=== PATIENT | male | born 1935 | race Caucasian/White ===

== ENCOUNTER → 2017-08-19 | Outpatient (CLI) | payer MEDICARE, OTHER ==
[~2017-08-19] MED LIST: ASPIRIN81 MG PO; ATORVASTATIN CA20 MG PO; BENICAR HCT 401 EACH PO; PENCILLIN V PO250 MG PO; VITAMIN C1000 M1 PO
--- NOTE | 2017-08-19 10:01 | Diagnostic Imaging Report ---
PROCEDURE:ABDOMEN-1VIEW (KUB) TECHNIQUE:Supine AP abdomen totaling 2 radiographs INDICATION:Kidney stones COMPARISON:[facility], DX, ABDOMEN-1VIEW (KUB), 02/11/2017, 9:23. [facility], DX, ABDOMEN-1VIEW (KUB), 05/12/2017, 10:56. FINDINGS: See conclusion. CONCLUSION: 1. Stable left upper pole 4 mm stone. No evidence of new stones. 2. Normal bowel gas pattern. 3. Intact skeleton. Multiple pelvic surgical clips suggesting lymph node dissection. Dictated by: Sebastian Radford M.D. on 08/19/2017 at 10:01 Electronically approved by: Sebastian Radford M.D. on 08/19/2017 at 10:01
== END ==
LOC: RAD 09:29
PROVIDERS: ATTEND Urology
DX: N20.0 Calculus of kidney (principal)
CPT/HCPCS: 74018

== ENCOUNTER → 2017-11-24 | Outpatient (CLI) | payer MEDICARE, OTHER ==
--- NOTE | 2017-11-24 19:12 | Diagnostic Imaging Report ---
PROCEDURE:X-RAY ABDOMEN - KUB COMPARISON:[facility], DX, ABDOMEN-1VIEW (KUB), 08/19/2017, 9:39. INDICATIONS:RENAL STONES, CHRONIC FINDINGS: Nonobstructive bowel gas pattern. Punctate radiopaque density projecting in the mid to inferior left renal shadow. Stable 4 mm radiopaque density projecting in the superior aspect of the left renal shadow No calcifications project over the right renal shadow or expected course of ureters. Multiple metallic clips are again seen in the pelvis. No acute bony abnormalities. No lytic or blastic lesions. Stable punctate radiopaque density projecting over the 11th rib outside the renal shadow and may represent vascular calcification.. CONCLUSION: Stable 4 mm radio obstructing calculus density projecting in the superior aspect of the left renal shadow. Punctate radiopaque density projecting in the mid to inferior left renal shadow likely represents a nonobstructing calculus. Lux Macedo M.D. Dictated by: Lux Macedo M.D. on 11/24/2017 at 19:14 Electronically approved by: Lux Macedo M.D. on 11/24/2017 at 19:14
== END ==
LOC: RAD 10:30
PROVIDERS: ATTEND Urology
DX: N20.0 Calculus of kidney (principal)
CPT/HCPCS: 74018

== ENCOUNTER → 2017-12-28 | Outpatient (CLI) | payer MEDICARE, OTHER ==
[~2017-12-28] MED LIST changes: +DIATRIZOATE MEGL/DIATRIZOA SOD 30 ML BTL PO ONE
[2017-12-28 15:59] LABS: BASOPHILS % 0.2 % (0.0-1.0); EOSINOPHILS # (AUTO) 0.3 (0.0-0.4); EOSINOPHILS % 2.2 % (0.0-6.0); HEMATOCRIT 41.7 % (38.2-49.6); HEMOGLOBIN 14.1 g/dL (14.0-18.0); LYMPHOCYTES # (AUTO) 1.7 (1.0-3.2); LYMPHOCYTES % 12.5 % (18.0-39.1); MEAN CORPUSCULAR HEMOGLOBIN 29.6 pg (28-32); MEAN CORPUSCULAR HGB CONC 33.8 g/dL (31-35); MEAN CORPUSCULAR VOLUME 87.6 fL (81-99); MONOCYTES # (AUTO) 1.5 (0.2-0.8); MONOCYTES % 11.2 % (4.4-11.3); NEUTROPHILS # (AUTO) 10.1 (2.1-6.9); NEUTROPHILS % 73.5 % (38.7-80.0); PLATELET COUNT 240 x10e3/uL (140-360); RED BLOOD COUNT 4.76 x10e6/uL (4.3-5.7); RED CELL DISTRIBUTION WIDTH 12.2 % (11.7-14.4)
[2017-12-28 16:17] LABS: ALBUMIN 3.8 g/dL (3.5-5.0); ALBUMIN/GLOBULIN RATIO 1.2 (0.8-2.0); ANION GAP 15.1 mmol/L (8-16); CALCIUM 9.5 mg/dL (8.4-10.2); CREATININE, SERUM 1.48 mg/dL (0.72-1.25); POTASSIUM 4.1 mmol/L (3.5-5.1)
--- NOTE | 2017-12-28 17:33 | Diagnostic Imaging Report ---
PROCEDURE: CT ABDOMEN AND PELVIS WITHOUT CONTRAST TECHNIQUE: The abdomen and pelvis were scanned utilizing a multidetector helical scanner from the diaphragm to the lesser trochanter after the oral administration of Gastroview. No IV contrast was administered. Coronal and sagittal multiplanar reformations were obtained. DLP: 592.42 mGy-cm COMPARISON: Abdominal CT 09/19/1999 INDICATIONS: INTESTINAL ADHESION FINDINGS: ABSENCE OF INTRAVENOUS CONTRAST DECREASES SENSITIVITY FOR DETECTION OF FOCAL LESIONS AND VASCULAR PATHOLOGY. LOWER THORAX: Right middle and lower lobe atelectasis or scarring. HEPATOBILIARY: No focal hepatic lesions. No biliary ductal dilatation. SPLEEN: No splenomegaly. PANCREAS: No focal masses or ductal dilatation. ADRENALS: No adrenal nodules. KIDNEYS/URETERS: No hydronephrosis or solid mass lesions. Fluid attenuating 1.2 cm lesion in the superior pole of the right kidney, likely a cyst. Nonobstructing left renal 0.5 cm calculus in the midpole. PELVIC ORGANS/BLADDER: Prostatectomy. No focal bladder wall thickening. PERITONEUM / RETROPERITONEUM: No free air. Small amount of free fluid in the pelvis. LYMPH NODES: No lymphadenopathy. Prior pelvic lymph node dissection. VESSELS: Mild scattered atherosclerotic calcifications. GI TRACT: No distention or wall thickening. Small hiatal hernia. Colonic diverticula without evidence of diverticulitis. Partial right hemicolectomy with ileocolonic anastomosis. Multiple small bowel loops are distended with contrast with gradual tapering towards the ileum. Multiple ventral hernias with one wide mouth hernia containing a portion of the anterior small bowel wall. BONES AND SOFT TISSUES: Midline laparotomy scar. Multiple ventral hernias, mostly fat containing with one Kaufman's hernia without evidence of strangulation or obstruction. Degenerative change of the spine. IMPRESSION: 1. No evidence of small bowel obstruction. 2. Left nephrolithiasis. 3. Colonic diverticulosis. 4. Status post partial right hemicolectomy, prostatectomy, and pelvic leslie dissection. 5. Multiple ventral hernias, mostly fat containing. Right ventral Kaufman's hernia without strangulation or obstruction. 6. Nonspecific small amount of free fluid in the pelvis. 1. Dictated by: Zac Manzanares M.D. on 12/28/2017 at 17:37 Electronically approved by: Zac Manzanares M.D. on 12/28/2017 at 17:37
== END ==
LOC: CT 15:39
PROVIDERS: ATTEND Internal Medicine
DX: K56.51 Intestinal adhesions [bands], with partial obstruction (principal)
CPT/HCPCS: 36415; 74176; 80053; 85025

== ENCOUNTER → 2018-02-20 | Outpatient (CLI) | payer MEDICARE, OTHER ==
[~2018-02-20] MED LIST changes: -DIATRIZOATE MEGL/DIATRIZOA SOD 30 ML BTL PO ONE
--- NOTE | 2018-02-20 20:57 | Diagnostic Imaging Report ---
PROCEDURE:X-RAY ABDOMEN - KUB COMPARISON:[facility], DX, ABDOMEN-1VIEW (KUB), 11/24/2017, 10:42. INDICATIONS:KIDNEY STONE FINDINGS: Nonobstructive bowel gas pattern with moderate amount of retained stool. Stable 4 mm radiopaque density projecting in the superior aspect of the left renal shadow. Previously described punctate radiopaque density projecting over the mid to inferior aspect of the left renal shadow is not seen in current exam. No other calcifications project over the right renal shadow or expected course of ureters or bladder. No acute bony abnormalities. Multiple metallic clips project in the pelvis. CONCLUSION: Stable 4 mm non-obstructing calculus in the left kidney. Previously described punctate radiopaque density projecting in the mid to inferior left kidney is not seen in current exam. Lux Macedo M.D. Dictated by: Lux Macedo M.D. on 02/20/2018 at 21:03 Electronically approved by: Lux Macedo M.D. on 02/20/2018 at 21:03
== END ==
LOC: RAD 15:54
PROVIDERS: ATTEND Urology
DX: N20.0 Calculus of kidney (principal)
CPT/HCPCS: 74018

== ENCOUNTER → 2018-05-18 | Outpatient (CLI) | payer MEDICARE, OTHER ==
--- NOTE | 2018-05-18 10:44 | Diagnostic Imaging Report ---
PROCEDURE:X-RAY ABDOMEN - KUB COMPARISON:02/20/2018. INDICATIONS:CALCULUS OF KIDNEY FINDINGS: 3-4 mm calculus projects over the upper pole of the left renal shadow as previously seen. No additional suspicious calcifications project over the renal shadows or expected ureteral courses. Bowel gas pattern is nonobstructive with gas and fecal material throughout the large bowel. Multiple pelvic surgical clips likely related to lymph node dissection, unchanged. Regional skeletal structures are intact with mild degenerative disc changes of the lumbar spine. No mass effect or organomegaly. CONCLUSION: Stable 3-4 mm left upper pole renal calculus. Dictated by: Sean Ngo M.D. on 05/18/2018 at 10:53 Electronically approved by: Sean Ngo M.D. on 05/18/2018 at 10:53
== END ==
LOC: RAD 09:56
PROVIDERS: ATTEND Urology
DX: N20.0 Calculus of kidney (principal)
CPT/HCPCS: 74018

== ENCOUNTER → 2018-07-21 | Outpatient (CLI) | payer MEDICARE, OTHER ==
--- NOTE | 2018-07-21 10:55 | Diagnostic Imaging Report ---
EXAMINATION: CHEST 2 VIEWS INDICATION: ^[id number] ^[id number] ^ACUTE BRONCHITIS COMPARISON: None FINDINGS: PA and lateral views TUBES and LINES: None. LUNGS: Lungs are well inflated. There is no evidence of pneumonia or pulmonary edema. Right upper lung field nodular density. PLEURA: No pleural effusion or pneumothorax. HEART AND MEDIASTINUM: The cardiomediastinal silhouette is unremarkable. BONES AND SOFT TISSUES: No acute osseous lesion. Soft tissues are unremarkable. UPPER ABDOMEN: No free air under the diaphragm. IMPRESSION: No acute thoracic abnormality. Right upper lung field nodular density can be further evaluated with nonurgent chest CT. Signed by: Dr. Akash Smith MD on 07/21/2018 10:51 AM
== END ==
LOC: RAD 09:32
PROVIDERS: ATTEND Internal Medicine
DX: J20.9 Acute bronchitis, unspecified (principal)
CPT/HCPCS: 71046

== ENCOUNTER → 2018-07-28 | Outpatient (CLI) | payer MEDICARE, OTHER ==
--- NOTE | 2018-07-28 12:33 | Diagnostic Imaging Report ---
EXAM: CT Chest WITHOUT contrast 07/28/2018 11:37 AM INDICATION: ^[id number] ^[id number] ^ABNORMAL CHEST XRAY COMPARISON: Chest radiograph 07/21/2018 TECHNIQUE: Chest was scanned utilizing a multidetector helical scanner from the lung apex through the level of the adrenal glands without administration of IV contrast. Absence of intravenous contrast decreases sensitivity for detection of lymphadenopathy and vascular pathology. Coronal and sagittal reformations were obtained. Routine protocol was performed. IV CONTRAST: None COMPLICATIONS: None RADIATION DOSE: Total DLP: 476.8 mGy*cm Estimated effective dose: (DLP x 0.015 x size factor) mSv CTDIvol has been reviewed. It is below the limits set by the Radiation Protocol Committee (RPC). FINDINGS: LINES/ TUBES: None. LUNGS AND AIRWAYS: Minimal scarring in both upper lobes. Indeterminate 4 mm triangular-shaped nodule in the right upper lobe on series 3, image 23 may represent an intrapulmonary lymph node. Calcified granuloma in the right upper lobe at the level of the aortic arch likely correspond to the abnormality seen on chest radiograph. Additional pleural-based calcified granuloma in the posterior left lower lobe on image 44. Noncalcified pleural-based adjacent nodule measuring 3 mm in the left lower lobe. Mild bilateral lower lobes and right middle lobe bronchiectasis with peribronchial wall thickening and surrounding areas of subsegmental atelectasis and linear scarring. PLEURA: The pleural spaces are clear. Few scattered small calcified pleural plaques, for example in the anterior right upper lobe on series 3, image 26, left upper lobe on image 37. HEART AND MEDIASTINUM: The thyroid gland is normal. Few a small right hilar calcified lymph nodes. The heart is normal in size. There is no pericardial effusion. Diffuse coronary artery calcifications. The thoracic aorta and pulmonary arteries are unremarkable. UPPER ABDOMEN: Unremarkable. BONES: Mild multilevel degenerative changes of the thoracic spine. SOFT TISSUES: Unremarkable. IMPRESSION: Few scattered bilateral calcified granulomas, with the largest in the right upper lobe corresponds to the abnormality seen on chest radiograph. Few bilateral small calcified pleural plaques. Bilateral lower lobe bronchiectasis with areas of subsegmental atelectasis. Overall findings are suggestive of sequela of prior rheumatoid disease with an without superimposed asbestos exposure. Signed by: Dr. Violet Frey M.D. on 07/28/2018 12:30 PM
== END ==
LOC: CT 11:31
PROVIDERS: ATTEND Internal Medicine
DX: R93.89 Abnormal findings on diagnostic imaging of other specified body structures (principal)
CPT/HCPCS: 71250

== ENCOUNTER → 2018-08-18 | Outpatient (CLI) | payer MEDICARE, OTHER ==
--- NOTE | 2018-08-18 11:39 | Diagnostic Imaging Report ---
EXAMINATION: ABDOMEN-1VIEW (KUB) INDICATION: Renal calculus. COMPARISON: CT Abdomen/Pelvis 09/18/16 and KUB 05/18/2018. FINDINGS: Unchanged appearance of 4 mm calcification overlying the left upper pole kidney. No evidence of additional calcifications overlying the kidneys or expected course of the ureters. Postsurgical changes with clips overlying the bilateral pelvis. Nonobstructive bowel gas pattern. No acute osseous abnormality. IMPRESSION: Similar appearance of 4 mm left upper pole renal calculus. Signed by: Dr. Monica Carlson MD on 08/18/2018 11:35 AM
== END ==
LOC: RAD 10:35
PROVIDERS: ATTEND Urology
DX: N20.0 Calculus of kidney (principal)
CPT/HCPCS: 74018

== ENCOUNTER → 2018-08-24 | Outpatient (CLI) | payer MEDICARE, OTHER | LOC: RESP 09:30 | PROVIDERS: ATTEND Internal Medicine | DX: J92.0 Pleural plaque with presence of asbestos (principal) | CPT/HCPCS: 94060; 94727; 94729 ==

== ENCOUNTER 2018-12-06 23:34 | Inpatient (IN) | payer MEDICARE, OTHER ==
[~2018-12-06] VITALS: Ht 190.5 cm; Wt 83.5 kg
--- OUTSIDE RECORDS SUMMARY | 2018-12-06 23:39 | XMS REPORT ---
Author Author [facility] Address Unknown Phone Unavailable Care Team Providers Care Critical Care Nurse Name Role Phone HERMILO ALLEN Unavailable Unavailable KATIE KUHN Unavailable Unavailable Problems This patient has no known problems. Allergies, Adverse Reactions, Alerts This patient has no known allergies or adverse reactions. Medications This patient has no known medications. Results Test Description Test Time Test Comments Text Results Atomic Results Result Comments ABDOMEN-1VIEW (KUB) 2018-08-18 11:32:00 [place] [address] Patient Name: JILLIAN CARBALLO MR #: [id number] : 1935 Age/Sex: 83/M Req #: [id number] Adm Physician: Ordered by: HERMILO ALLEN MD Report #: [id number] Location: [facility] Room/Bed: Procedure: [id number] DX/ABDOMEN-1VIEW (KUB) Exam Date: 08/18/18 Exam Time: 1045 REPORT STATUS: Signed EXAMINATION: ABDOMEN-1VIEW (KUB) INDICATION: Renal calculus. COMPARISON: CT Abdomen/Pelvis 09/18/16 and KUB 05/18/2018. FINDINGS: Unchanged appearance of 4 mm calcification overlying the left upper pole kidney. No evidence of additional calcifications overlying the kidneys or expected course of the ureters. Postsurgical changes with clips overlying the bilateral pelvis. Nonobstructive bowel gas pattern. No acute osseous abnormality. IMPRESSION: Similar appearance of 4 mm left upper pole renal calculus. Signed by: Dr. Chay Tellez MD on 08/18/2018 11:35 AM Dictated By: CHAY TELLEZ MD 34 Transcribed By: SONDRA on 08/18/18 1135 COPY TO: HERMILO ALLEN MD CT CHEST WO 2018-07-28 12:17:00 [place] [address] Patient Name: JILLIAN CARBALLO MR #: [id number] : 1935 Age/Sex: 83/M Req #: [id number] Adm Physician: Ordered by: KATIE MUSA MD Report #: [id number] Location: CT Room/Bed: Procedure: [id number] CT/CT CHEST WO Exam Date: 07/28/18 Exam Time: 1156 REPORT STATUS: Signed EXAM: CT Chest WITHOUT contrast 07/28/2018 11:37 AM INDICATIO N: [id number] ABNORMAL CHEST XRAY COMPARISON: Chest radiograph 07/21/2018 TECHNIQUE: Chest was scanned utilizing a multidetector helical scanner from the lung apex through the level of the adrenal glands without administration of IV contrast. Absence of intravenous contrast decreases sensitivity for detection of lymphadenopathy and vascular pathology. Coronal and sagittal reformations were obtained. Routine protocol was performed. IV CONTRAST: None COMPLICATIONS: None RADIATION DOSE: Total DLP: 476.8 mGy*cm Estimated effective dose: (DLP x 0.015 x size factor) mSv CTDIvol has been reviewed. It is below the limits set by the Radiation Protocol Committee (RPC). FINDINGS: LINES/ TUBES: None. LUNGS AND AIRWAYS: Minimal scarring in both upper lobes. Indeterminate 4 mm triangular-shaped nodule in the right upper lobe on series 3, image 23 may represent an intrapulmonary lymph node. Calcified granuloma in the right upper lobe at the level of the aortic arch likely correspond to the abnormality seen on chest radiograph. Additional pleural- based calcified granuloma in the posterior left lower lobe on image 44. Noncalcified pleural-based adjacent nodule measuring 3 mm in the left lower lobe. Mild bilateral lower lobes and right middle lobe bronchiectasis with peribronchial wall thickening and surrounding areas of subsegmental atelectasis and linear scarring. PLEURA: The pleural spaces are clear. Few scattered small calcified pleural plaques, for example in the anterior right upper lobe on series 3, image 26, left upper lobe on image 37. HEART AND MEDIASTINUM: The thyroid gland is normal. Few a small right hilar calcified lymph nodes. The heart is normal in size. There is no pericardial effusion. Diffuse coronary artery calcifications. The thoracic aorta and pulmonary arteries are unremarkable. UPPER ABDOMEN: Unremarkable. BONES: Mild multilevel degenerative changes of the thoracic spine. SOFT TISSUES: Unremarkable. IMPRESSION: Few scattered bilateral calcified granulomas, with the largest in the right upper lobe corresponds to the abnormality seen on chest radiograph. Few bilateral small calcified pleural plaques. Bilateral lower lobe bronchiectasis with areas of subsegmental atelectasis. Overall findings are suggestive of sequela of prior rheumatoid disease with an without superimposed asbestos exposure. Signed by: Dr. Violet Frey M.D. on 07/28/2018 12:30 PM Dictated By: VIOLET FREY MD 1230 Transcribed By: SONDRA on 07/28/18 1230 COPY TO: KATIE MUSA MD CHEST 2 VIEWS 2018-07-21 10:51:00 [place] [address] Patient Name: JILLIAN CARBALLO MR #: [id number] : 1935 Age/Sex: 83/M Req #: [id number] Adm Physician: Ordered by: KATIE KUHN MD Report #: [id number] Location: RAD Room/Bed: Procedure: [id number] DX/CHEST 2 VIEWS Exam Date: 07/21/18 Exam Time: 944 REPORT STATUS: Signed EXAMINATION: CHEST 2 VIEWS INDICATION: [id number] ACUTE BRONCHITIS COMPARISON: None FINDINGS: PA and lateral views TUBES and LINES: None. LUNGS: Lungs are well inflated. There is no evidence of pneumonia or pulmonary edema. Right upper lung field nodular density. PLEURA: No pleural effusion or pneumothorax. HEART AND MEDIASTINUM: The cardiomediastinal silhouette is unremarkable. BONES AND SOFT TISSUES: No acute osseous lesion. Soft tissues are unremarkable. UPPER ABDOMEN: No free air under the diaphragm. IMPRESSION: No acute thoracic abnormality. Right upper lung field nodular density can be further evaluated with nonurgent chest CT. Signed by: Dr. Akash Vidal MD on 07/21/2018 10:51 AM Dictated By: AKASH VIDAL MD 1051 Transcribed By: SONDRA on 07/21/18 1051 COPY TO: KATIE KUHN MD [facility] (KUB[facility] 2018-05-18 10:53:00 [place] [address] Patient Name: JILLIAN CARBALLO MR #: [id number] : 1935 Age/Sex: 82/M Req #: [id number] Adm Physician: Ordered by: HERMILO ALLEN MD Report #: [id number] Location: RAD Room/Bed: Procedure: [id number] DX/ABDOMEN-1VIEW (KUB) Exam Date: 05/18/18 Exam Time: 1014 REPORT STATUS: Signed PROCEDURE: X-RAY ABDOMEN - KUB COMPARISON: . INDICATIONS: CALCULUS OF KIDNEY FINDINGS: 3-4 mm calculus projects over the upper pole of the left renal shadow as previously seen. No additional suspicious calcifications project over the renal shadows or expected ureteral courses. Bowel gas pattern is nonobstructive with gas and fecal material throughout the large bowel. Multiple pelvic surgical clips likely related to lymph node dissection, unchanged. Regional skeletal structures are intact with mild degenerative disc changes of the lumbar spine. No mass effect or organomegaly. CONCLUSION: Stable 3-4 mm left upper pole renal calculus. Dictated by: Wai Ngo M.D. on 05/18/2018 at 10:53 Electronically approved by: Wai Ngo M.D. on 05/18/2018 at 10:53 Dictated By: WAI NGO MD 1053 Transcribed By: ANNE-MARIE on 05/18/18 1053 COPY TO: HERMILO ALLEN MD ABDOMEN-1VIEW (KUB) 2018-02-20 21:03:00 [place] [address] Patient Name: JILLIAN CARBALLO MR #: [id number] : 1935 Age/Sex: 82/M Req #: [id number] Adm Physician: Ordered by: HERMILO ALLEN MD Report #: [id number] Location: [facility] Room/Bed: Procedure: [id number] DX/ABDOMEN-1VIEW (KUB) Exam Date: 02/20/18 Exam Time: 1604 REPORT STATUS: Signed PROCEDURE: X-RAY ABDOMEN - KUB COMPARISON: [facility], DX, ABDOMEN-1VIEW (KUB), 11/24/2017, 10:42. INDICATIONS: KIDNEY STONE FINDINGS: Nonobstructive bowel gas pattern with moderate amount of r etained stool. Stable 4 mm radiopaque density projecting in the superior aspect of the left renal shadow. Previously described punctate radiopaque density projecting over the mid to inferior aspect of the left renal shadow is not seen in current exam. No other calcifications project over the right renal shadow or expected course of ureters or bladder. No acute bony abnormalities. Multiple metallic clips project in the pelvis. CONCLUSION: Stable 4 mm non-obstructing calculus in the left kidney. Previously described punctate radiopaque density projecting in the mid to inferior left kidney is not seen in current exam. Lux Truong M.D. Dictated by: Lux Truong M.D. on 02/20/2018 at 21:03 Electronically approved by: Lux Truong M.D. on 02/20/2018 at 21:03 Dictated By: LXU TRUONG MD 02 Transcribed By: ANNE-MARIE on 02/20/182102 COPY TO: HERMILO ALLEN MD CT ABDOMEN/PELVIS WO 2017-12-28 17:37:00 [place] [address] Patient Name: JILLIAN CARBALLO MR #: [id number] : 1935 Age/Sex: 82/M Req #: [id number] Adm Physician: Ordered by: KATIE KUHN MD Report #: [id number] Location: CT Room/Bed: Procedure: [id number] CT/CT ABDOMEN/PELVIS WO Exam Date: 12/28/17 Exam Time: 1652 REPORT STATUS: Signed PROCEDURE: CT ABDOMEN AND PELVIS WITHOUT CONTRAST TECHNIQUE: The abdomen and pelvis were scanned utilizing a multidetector helical scanner from the diaphragm to the lesser trochanter after the oral administration of Gastroview. No IV contrast was administered. Coronal and sagittal multiplanar reformations were obtained. DLP: 592.42 mGy-cm COMPARISON: Abdominal CT 09/19/1999 INDICATIONS: INTESTINAL ADHESION FINDINGS: ABSENCE OF INTRAVENOUS CONTRAST DECREASES SENSITIVITY FOR DETECTION OF FOCAL LESIONS AND VASCULAR PATHOLOGY. LOWER THORAX: Right middle and lower lobe atelectasis or scarring. HEPATOBILIARY: No focal hepatic lesions. No biliary ductal dilatation. SPLEEN: No splenomegaly. PANCREAS: No focal masses or ductal dilatation. ADRENALS: No adrenal nodules. KI DNEYS/URETERS: No hydronephrosis or solid mass lesions. Fluid attenuating 1.2 cm lesion in the superior pole of the right kidney, likely a cyst. Nonobstructing left renal 0.5 cm calculus in the midpole. PELVIC ORGANS/BLADDER: Prostatectomy. No focal bladder wall thickening. PERITONEUM / RETROPERITONEUM: No free air. Small amount of free fluid in the pelvis. LYMPH NODES: No lymphadenopathy. Prior pelvic lymph node dissection. VESSELS: Mild scattered atherosclerotic calcifications. GI TRACT: No distention or wall thickening. Small hiatal hernia. Colonic diverticula wi thout evidence of diverticulitis. Partial right hemicolectomy with ileocolonic anastomosis. Multiple small bowel loops are distended with contrast with gradual tapering towards the ileum. Multiple ventral hernias with one wide mouth hernia containing a portion of the anterior small bowel wall. BONES AND SOFT TISSUES: Midline laparotomy scar. Multiple ventral hernias, mostly fat containing with one Kaufman's hernia without evidence of strangulation or obstruction. Degenerative change of the spine. IMPRESSION: 1. No evidence of small bowel obstruction. 2. Left nephrolithiasis. 3. Colonic diverticulosis. 4. Status post partial right hemicolectomy, prostatectomy, and pelvic leslie dissection. 5. Multiple ventral hernias, mostly fat containing. Right ventral Kaufman's hernia without strangulation or obstruction. 6. Nonspecific small amount of free fluid in the pelvis. 1. Dictated by: Zac Shore M.D. on 12/28/2017 at 17:37 Electronically approved by: Zac Shore M.D. on 12/28/2017 at 17:37 Dictated By: ZAC SHORE MD 36 Transcribed By: ANNE-MARIE on 12/28/171736 COPY TO: KATIE KUHN MD ABDOMEN-1VIEW (KUB) [place] [address] Patient Name: JILLIAN CARBALLO MR #: [id number] : 1935 Age/Sex: 82/M Req #: [id number] Adm Physician: Ordered by: HERMILO ALLEN MD Report #: [id number] Location: [facility] Room/Bed: Procedure: [id number] DX/ABDOMEN-1VIEW (KUB) Exam Date: 11/24/17 Exam Time: 1042 REPORT STATUS: Signed PROCEDURE: X-RAY ABDOMEN - KUB COMPARISON: [facility], DX, ABDOMEN-1VIEW (KUB), 08/19/2017, 9:39. INDICATIONS: RENAL STONES, CHRONIC FINDINGS: Nonobstructive bowel gas pattern. Punctate radiop aque density projecting in the mid to inferior left renal shadow. Stable 4 mm radiopaque density projecting in the superior aspect of the left renal shadow No calcifications project over the right renal shadow or expected course of ureters. Multiple metallic clips are again seen in the pelvis. No acute bony abnormalities. No lytic or blastic lesions. Stable punctate radiopaque density projecting over the 11th rib outside the renal shadow and may represent vascular calcification.. CONCLUSION: Stable 4 mm radio obstructing calculus density projecting in the superior aspect of the left renal shadow. Punctate radiopaque density projecting in the mid to inferior left renal shadow likely represents a nonobstructing calculus. Lux Truong M.D. Dictated by: Lux Truong M.D. on 11/24/2017 at 19:14 Electronically approved by: Lux Truong M.D. on 11/24/2017 at 19:14 Dictated By: LUX TRUONG MD 13 Transcribed By: ANNE-MARIE on 11/24/171913 COPY TO: HERMILO ALLEN MD ABDOMEN-1VIEW (KUB) [place] [address] Patient Name: JILLIAN CARBALLO MR #: [id number] : 1935 Age/Sex: 82/M Req #: [id number] Adm Physician: Ordered by: HERMILO ALLEN MD Report #: [id number] Location: [facility] Room/Bed: Procedure: [id number] DX/ABDOMEN-1VIEW (KUB) Exam Date: 08/19/17 Exam Time: 929 REPORT STATUS: Signed PROCEDURE: ABDOMEN-1VIEW (KUB) TECHNIQUE: Supine AP abdomen totaling 2 radiographs INDICATION: Kidney stones COMPARISON: [facility], DX, ABDOMEN-1VIEW (KUB), 02/11/2017, 9:23. [facility], DX, ABDOMEN-1VIEW (KUB), 05/12/2017, 10:56. FINDINGS: See conclusion. CONCLUSION: 1. Stable left upper pole 4 mm stone. No evidence of new stones. 2. Normal bowel gas pattern. 3. Intact skeleton. Multiple pelvic surgical clips suggesting lymph node dissection. Dictated by: Mi Radford M.D. on 08/19/2017 at 10:01 Electronically approved by: Mi Radford M.D. on 08/19/2017 at 10:01 Dictated By: MI RADFORD MD 1001 Transcribed By: ANNE-MARIE on 08/19/17 1001 COPY TO: HERMILO ALLEN MD ABDOMEN-1VIEW (KUB) [place] [address] Patient Name: JILLIAN CARBALLO MR #: [id number] : 1935 Age/Sex: 81/M Req #: [id number] Adm Physician: Ordered by: HERMILO ALLEN MD Report #: [id number] Location: [facility] Room/Bed: Procedure: [id number] DX/ABDOMEN-1VIEW (KUB) Exam Date: 05/12/17 Exam Time: 1058 REPORT STATUS: Signed PROCEDURE: X-RAY ABDOMEN - KUB COMPARISON: Abdomen x-ray 02/11/17; CT abdomen/pelvis 09/18/16 INDICATIONS: HISTORY OF KIDNEY CALCULUS FINDINGS: BOWEL GAS PATTERN: Non-specific bowel gas pattern. No dilated bowel loops. [id number] amount of stool in the large bowel. CALCIFICATIONS: Stool and air obscure the right renal shadow. A suspected calculus over the left renal shadow on previous exam is poorly visualized on this study. Two potential calculi at the upper pole of the left kidney may correspond to splenic artery calcifications identified on CT. The larger measures 5 mm. The smaller measures 4 mm. No calcifications over the renal shadows or along the expected course of the ureters. OTHER: Multiple surgical clips in the pelvis are re-demonstrated. No organomegaly. BONES: Unremarkable for age. CONCLUSION: 1. No conclusive evidence of intrarenal calculi. No evidence of ureteral calculi. 2. CT is a more sensitive modality to identify intrarenal calculi. Dictated by: Jammie Koroma M.D. on 05/12/2017 at 11:35 Electronically approved by: Jammie Koroma M.D. on 05/12/2017 at 11:35 Dictated By: JAMMIE KOROMA MD 1135 Transcribed By: ANNE-MARIE on 05/12/17 1135 COPY TO: HERMILO ALLEN MD
[2018-12-06] MEDS ORDERED: ONDANSETRON HCL INJ 2MG/ML 2ML 2 MG/ML VIAL IV STA (23:45)
[2018-12-06] MEDS ORDERED: HYDROMORPHONE 1MG/1ML INJ IV STA (23:45)
[2018-12-07] MEDS ORDERED: MORPHINE SULFATE INJ 4 MG/ML INJ 1ML IV ONE
[2018-12-07] MEDS ORDERED: MORPHINE SULFATE INJ 4 MG/ML INJ 1ML ONE (00:01)
[2018-12-07] MEDS ORDERED: ONDANSETRON HCL INJ 2MG/ML 2ML 2 MG/ML VIAL ONE (00:01)
[2018-12-07 00:04] LABS: BASOPHILS # (AUTO) 0.1 (0.0-0.1); BASOPHILS % 0.3 % (0.0-1.0); EOSINOPHILS # (AUTO) 0.1 (0.0-0.4); EOSINOPHILS % 0.2 % (0.0-6.0); HEMATOCRIT 47.6 % (38.2-49.6); HEMOGLOBIN 16.3 g/dL (14.0-18.0); LYMPHOCYTES # (AUTO) 1.7 (1.0-3.2); LYMPHOCYTES % 5.6 % (18.0-39.1); MEAN CORPUSCULAR HEMOGLOBIN 30.1 pg (28-32); MEAN CORPUSCULAR HGB CONC 34.2 g/dL (31-35); MONOCYTES # (AUTO) 1.5 (0.2-0.8); MONOCYTES % 5.2 % (4.4-11.3); NEUTROPHILS # (AUTO) 26.1 (2.1-6.9); NEUTROPHILS % 87.3 % (38.7-80.0); PLATELET COUNT 288 x10e3/uL (140-360); RED BLOOD COUNT 5.41 x10e6/uL (4.3-5.7); RED CELL DISTRIBUTION WIDTH 13.2 % (11.7-14.4)
[2018-12-07 00:05] LABS: BILIRUBIN,URINE NEGATIVE (NEGATIVE); CLARITY,URINE CLEAR (CLEAR); COLOR,URINE YELLOW (YELLOW); KETONES,URINE TRACE (NEGATIVE); LEUKOCYTE ESTERASE ,URINE NEGATIVE (NEGATIVE); NITRITE,URINE NEGATIVE (NEGATIVE); PROTEIN,URINE DIPSTICK TRACE (NEGATIVE); URINE UROBILINOGEN 0.2 mg/dL (0.2 - 1)
[2018-12-07 00:22] LABS: ALBUMIN 4.1 g/dL (3.5-5.0); ALBUMIN/GLOBULIN RATIO 1.3 (0.8-2.0); ANION GAP 15.8 mmol/L (8-16); CALCIUM 10.8 mg/dL (8.4-10.2); CREATININE, SERUM 1.21 mg/dL (0.72-1.25); POTASSIUM 4.8 mmol/L (3.5-5.1)
[2018-12-07 00:25] LABS: BACTERIA,URINE MANY /HPF; EPITHELIAL CELLS,URINE FEW /LPF; MUCUS,URINE MANY (RARE)
--- NOTE | 2018-12-07 00:42 | Diagnostic Imaging Report ---
EXAM: CT Abdomen and Pelvis WITHOUT contrast INDICATION: ^left flank pain ^[id number] ^0005 ^Y COMPARISON: Abdominal x-ray dated 08/18/2018, chest CT dated 07/28/2018, CT abdomen/pelvis dated 12/28/2017 TECHNIQUE: Abdomen and pelvis were scanned utilizing a multidetector helical scanner from the lung base to the pubic symphysis without administration of IV contrast. Absence of intravenous contrast decreases sensitivity for detection of focal lesions and vascular pathology. Coronal and sagittal reformations were obtained. Routine protocol was performed. IV CONTRAST: None ORAL CONTRAST: Water COMPLICATIONS: None RADIATION DOSE: Total DLP: 450.55 mGy*cm Estimated effective dose: (DLP x 0.015 x size factor) mSv CTDIvol has been reviewed. It is below the limits set by the Radiation Protocol Committee (RPC). FINDINGS: LINES and TUBES: None. LOWER THORAX: Unchanged subpleural left lower lobe nodules and right basilar scarring. Partially visualized atherosclerotic calcification of coronary arteries. HEPATOBILIARY: Unenhanced liver is unremarkable. No biliary ductal dilation. GALLBLADDER: No radio-opaque stones or sludge. No wall thickening. SPLEEN: No splenomegaly. PANCREAS: No focal masses or ductal dilatation. ADRENALS: No adrenal nodules KIDNEYS/URETERS: No hydronephrosis. Limited for evaluation of renal parenchyma without intravenous contrast. Right renal superior pole parapelvic cyst. Left midpole 5 mm calculus. GI TRACT: Dilated air and fluid-filled proximal small bowel loops along with collapsed right lower quadrant more distal small bowel loops. Transition point is within right periumbilical hernia. There are diverticula within the colon without evidence of diverticulitis. Small hiatal hernia. PELVIC ORGANS/BLADDER: Bladder is collapsed, limiting evaluation. Prostatectomy and pelvic sidewall no lumbarization clips. LYMPH NODES: No lymphadenopathy. VESSELS: There is mild atherosclerotic disease in the aorta and major arterial branches. PERITONEUM / RETROPERITONEUM: No free air or fluid. BONES: Degenerative changes of lower lumbar spine. SOFT TISSUES: Several small fat-containing ventral hernias as well as a bowel containing periumbilical hernia as described above. IMPRESSION: 1. At least partial small bowel obstruction with transition point within periumbilical probably incarcerated ventral hernia. 2. 5 mm left renal midpole nonobstructive calculus. No evidence of obstructive urolithiasis. Signed by: Dr. Akash Smith MD on 12/07/2018 12:38 AM
[2018-12-07] MEDS ORDERED: PIPER-TAZ 3.375 GM 50 ML IV ONE (01:00)
[2018-12-07] MEDS ORDERED: PIPER-TAZ 3.375 GM 50 ML ONE (01:01)
[2018-12-07] MEDS ORDERED: VITAMIN C1000 M2 PO (01:07)
[2018-12-07] MEDS ORDERED: MELOXICAM7.5 MG PO (01:07)
[2018-12-07] MEDS ORDERED: MORPHINE SULFATE INJ 4 MG/ML INJ 1ML IV PRN (01:15)
[2018-12-07] MEDS ORDERED: ONDANSETRON HCL INJ 2MG/ML 2ML 2 MG/ML VIAL IV PRN (01:15)
[2018-12-07] MEDS ORDERED: BENZOCAINE/TETRACAINE/BUTAMBEN AERO SPRAY 56 GM CAN ONE (01:15)
[2018-12-07] MEDS ORDERED: ACETAMINOPHEN 1000 MG/100 ML IV PRN (01:15)
--- NOTE | 2018-12-07 01:29 | NUR ---
18F NGT PLACED TO L NARE, VERIFIED BY 2 RNS VIA AIR BOLUS, PLACED TO LIWS MINIMAL AMT OF CLEAR DRAINAGEW NOTED. PT PLACED ONTO HOSPITAL BED FOR COMFORT
[2018-12-07] MEDS: SODIUM CHLORIDE 0.9% 1000ML 1,000 ML IV SCH ×3 (01:45→17:19)
[2018-12-07] MEDS ORDERED: LEVOCETIRIZINE D5 MG PO (07:28)
[2018-12-07] MEDS ORDERED: MONTELUKAST SOD10 MG PO (07:28)
[2018-12-07] MEDS: PIPER-TAZ 3.375 GM / NS 50ML IV SCH ×2 (07:29→12:59)
[2018-12-07] MEDS: PANTOPRAZOLE 40 MG 10ML VIAL IV SCH (08:54)
--- NOTE | 2018-12-07 08:55 | NUR ---
Dr. Lopez at bedside speaking to patient. Patient resting comfortably at this time. Will continue to monitor patient.
--- NOTE | 2018-12-07 09:00 | Diagnostic Imaging Report ---
Exam: KUB - 3 views Clinical History: Incarcerated abdominal hernia with small bowel obstruction. Comparison: CT abdomen/pelvis without contrast 12/07/2018. Findings: There are dilated small bowel loops in the left hemiabdomen, measuring up to 4.9 cm. The distal small bowel loops are decompressed. Air and stool contents are seen within a nondistended colon and rectum. No evidence of free intraperitoneal air. Enteric tube terminates in the proximal stomach. Previously noted left-sided renal stone is obscured by overlying bowel gas. No acute osseous abnormality. Surgical clips project over the bilateral pelvis. Impression: Findings of ongoing partial small bowel obstruction. Signed by: Dr. Monica Carlson MD on 12/07/2018 8:57 AM
[2018-12-07 09:19] LABS: INR 0.83; PROTHROMBIN TIME 11.9 seconds (11.9-14.5)
[2018-12-07 09:20] LABS: PARTIAL THROMBOPLASTIN TIME 26.4 seconds (23.8-35.5)
[2018-12-07] MEDS ORDERED: DEXTROSE 50% SYRINGE 50 ML IV PRN (09:30)
--- NOTE | 2018-12-07 10:27 | NUR ---
NG tube flushed at this time with 30 mL of NS to keep patency. Patient resting with no distress noted. Will continue to monitor patient.
--- NOTE | 2018-12-07 11:18 | NUR ---
REC'D REPORT FROM SUSANA Aguilar FOR CONTINUITY OF CARE
[2018-12-07] MEDS: INSULIN LISPRO 100 UNIT/1 ML 3ML VIAL SQ SCH ×3 (11:37→20:47)
--- NOTE | 2018-12-07 13:55 | NUR ---
Received patient from ER, aox3, pleasant gentleman with c/o N/V and abdnal pains. CT showed SBO, NG tube in place to LIWS, connected, IV fluids in place, no resp distress, call light within reach, in room with patient, will monitor.
[2018-12-07 13:56] VITALS: BP 157/77
--- NOTE | 2018-12-07 16:58 | History and Physical ---
PRIMARY CARE PHYSICIAN: Dr. Hawa Frye. PROGRAM PROPOSALS COORDINATOR: Dr. Karlos Razo. CHIEF COMPLAINT: Abdominal pain associated with small bowel obstruction, incarcerated hernia. HISTORY OF PRESENT ILLNESS: The patient is a pleasant 83-year-old male with multiple abdominal surgery. The patient had right hemicolectomy several years ago for colon cancer. The patient also had right inguinal surgery as well. He has an abdominal scar, came in with right quadrant abdominal distention. On examination, the patient has at least partial small bowel obstruction with transition point within the periumbilical probably incarcerated ventral hernia. The patient is admitted. NG tube placed. PAST MEDICAL HISTORY: Prostatectomy, right hemicolectomy, history of kidney stone with ureteral stent on the right, right inguinal hernia repair, hypertension, dyslipidemia. SOCIAL HISTORY: The patient does not smoke or use alcohol. No recreational drug use. ALLERGIES: NO KNOWN ALLERGIES. HOME MEDICATIONS: Ascorbic acid, aspirin, Lipitor, Zyrtec, meloxicam, olmesartan and HCTZ, montelukast. REVIEW OF SYSTEMS: Abdominal pain, nausea and vomiting. PHYSICAL EXAMINATION: VITAL SIGNS: Temperature is 98, blood pressure 147/91, pulse rate is 102, respirations 18. GENERAL: The patient is not in acute distress. He is awake. HEENT: Normocephalic, atraumatic. Anicteric. NECK: Supple grossly. PULMONARY: Diminished breath sounds. CARDIOVASCULAR: Regular rate and rhythm. ABDOMEN: Right lower quadrant area abdominal distention. Multiple surgical scars on the abdominal wall. Tenderness with some guarding. NG tube in place. NEUROLOGIC: No focal deficit. LABORATORY DATA: WBC is 29.8, hemoglobin 16.3, hematocrit 47.6, platelets is 288. Chemistry; sodium is 134, potassium 4.8, chloride 97, bicarb 26, BUN is 31, creatinine 1.2, glucose is 243. Urinalysis; many mucus, many bacteria, wbc of 10. Coagulation is still pending. CT scan show as mentioned above. IMPRESSION: 1. Partial small bowel obstruction. 2. Abdominal pain. 3. Possible adhesion. 4. Possible small bowel incarceration. PLAN: Continue current management. The patient is on antibiotics. Consultation with Dr. Karlos Razo. We will monitor the patient closely and adjust his medication. MD LONNY Hernandez/ASTON /[id number]
[2018-12-07 17:17] VITALS: BP 167/78
--- NOTE | 2018-12-07 18:34 | NUR ---
Patient stable, NG tube in place and stable, no resp distress, denies any pains, flushed NG tube and patent.
[2018-12-07 20:00] VITALS: BP 140/69
[2018-12-07] MEDS ORDERED: PIPER-TAZ 3.375 GM / NS 50ML IV SCH (20:02)
[2018-12-07] MEDS: PIPER-TAZ 3.375 GM 50 ML IV SCH (20:08)
[2018-12-08] VITALS (8 sets, daily range): BP systolic 118–136; BP diastolic 58–76
[2018-12-08] MEDS: PIPER-TAZ 3.375 GM 50 ML IV SCH ×4 (01:36→20:57)
[2018-12-08] MEDS: SODIUM CHLORIDE 0.9% 1000ML 1,000 ML IV SCH ×3 (01:36→19:44)
[2018-12-08 04:59] LABS: BASOPHILS % 0.2 % (0.0-1.0); EOSINOPHILS # (AUTO) 0.6 (0.0-0.4); EOSINOPHILS % 4.7 % (0.0-6.0); HEMATOCRIT 38.9 % (38.2-49.6); HEMOGLOBIN 13.2 g/dL (14.0-18.0); LYMPHOCYTES # (AUTO) 1.4 (1.0-3.2); LYMPHOCYTES % 11.2 % (18.0-39.1); MEAN CORPUSCULAR HEMOGLOBIN 30.2 pg (28-32); MEAN CORPUSCULAR HGB CONC 33.9 g/dL (31-35); MONOCYTES # (AUTO) 1.2 (0.2-0.8); MONOCYTES % 9.6 % (4.4-11.3); NEUTROPHILS # (AUTO) 9.4 (2.1-6.9); NEUTROPHILS % 73.7 % (38.7-80.0); PLATELET COUNT 173 x10e3/uL (140-360); RED BLOOD COUNT 4.37 x10e6/uL (4.3-5.7); RED CELL DISTRIBUTION WIDTH 13.1 % (11.7-14.4)
[2018-12-08 05:34] LABS: ALANINE AMINOTRANSFERASE 10 IU/L (0-55); ALBUMIN 2.8 g/dL (3.5-5.0); ALBUMIN/GLOBULIN RATIO 1.2 (0.8-2.0); ALKALINE PHOSPHATASE 42 IU/L (40-150); ANION GAP 9.1 mmol/L (8-16); BLOOD UREA NITROGEN 19 mg/dL (7-26); BUN/CREATININE RATIO 20 (6-25); CALCIUM 8.7 mg/dL (8.4-10.2); CARBON DIOXIDE 27 mmol/L (22-29); CHLORIDE 107 mmol/L (98-107); CREATININE, SERUM 0.93 mg/dL (0.72-1.25); EST GLOMERULAR FILTRATION RATE > 60 ML/MIN (60-); GLUCOSE 132 mg/dL (74-118); POTASSIUM 4.1 mmol/L (3.5-5.1); SODIUM 139 mmol/L (136-145)
--- NOTE | 2018-12-08 06:24 | Diagnostic Imaging Report ---
EXAM: Abdomen and chest, 4 radiographs INDICATION: ^sbo ^[id number] ^0600 COMPARISON: Abdominal x-ray dated 12/07/2018, chest CT dated 07/28/2018 FINDINGS: Nasogastric tube in place with tip coiled within gastric cardia or distal esophagus. Resolved gaseous distention of small bowel loops, seen on prior x-ray. Nonobstructive bowel gas pattern. No signs of pneumoperitoneum. Several pelvic surgical clips. No acute osseous abnormality. Minimal bibasilar subsegmental atelectasis. Otherwise, lungs are clear. Right midlung nodular density, corresponds to a calcified granuloma seen on prior chest CT. IMPRESSION: Resolution of gaseous distention of small bowel loops, seen on prior x-ray. Recommend repositioning of the nasogastric tube. Signed by: Dr. Akash Smith MD on 12/08/2018 6:21 AM
[2018-12-08] MEDS: INSULIN LISPRO 100 UNIT/1 ML 3ML VIAL SQ SCH ×4 (07:30→20:41)
[2018-12-08] MEDS: PANTOPRAZOLE 40 MG 10ML VIAL IV SCH (09:00)
--- NOTE | 2018-12-08 09:56 | NUR ---
Patient alert and responsive, VSS, states is passing gas and Abdominal X-ray with resolution of gaseous distension. Recommend repositioning of NG tube. Called Dr. Everett, in OR, waiting for call back
--- NOTE | 2018-12-08 10:56 | NUR ---
Spoke with Dr. Everett and orders to remove NG tube and patient may have ice chips.
--- NOTE | 2018-12-08 11:14 | NUR ---
NG tube removed, patient tolerated well, having ice chips, will monitor, encouraged to ambulate and verbalized understanding.
--- NOTE | 2018-12-08 15:19 | NUR ---
Patient OOB and ambulating, had a BM this afternoon, no c/o abdominal pains, no c/o N/V.
--- NOTE | 2018-12-08 16:25 | NUR ---
Rounds by Dr. Everett and changed orders from NPO to clear liquid, tolerating well so far.
--- NOTE | 2018-12-08 19:17 | NUR ---
Patient had dinner and tolerated well, no N/V and no abdl pain
--- NOTE | 2018-12-08 19:22 | NUR ---
Patient received sitting up in bed. AAO x 4. Patient had no complaints of pain. Respirations even and non-labored. IVF infusing at 50 cc / hr. Bed locked and in lowest position. Bed rails up x 2. Patient instructed to call for assistance when needed. Call light within reach.
[2018-12-09] VITALS (7 sets, daily range): BP systolic 125–145; BP diastolic 62–80
[2018-12-09] MEDS: SODIUM CHLORIDE 0.9% 1000ML 1,000 ML IV SCH (00:17)
[2018-12-09] MEDS: PIPER-TAZ 3.375 GM 50 ML IV SCH ×4 (02:15→20:59)
--- NOTE | 2018-12-09 07:00 | NUR ---
RECEIVED AM REPORT FROM RN. PT IS AWAKE LYING IN BED, NO S/S OF DISTRESS. CALL LIGHT WITHIN REACH, SIDE RAILS UP, BED IN LOWEST POSITION.
--- NOTE | 2018-12-09 07:18 | NUR ---
Walking rounds done. Shift report given to oncoming nurse.
[2018-12-09] MEDS: INSULIN LISPRO 100 UNIT/1 ML 3ML VIAL SQ SCH ×4 (07:30→21:00)
[2018-12-09] MEDS: PANTOPRAZOLE 40 MG 10ML VIAL IV SCH (08:48)
--- NOTE | 2018-12-09 19:11 | NUR ---
gave report to pm nurse. pt is awake lying in bed, no s/s of distress.
[2018-12-10] VITALS: BP 139/78
[2018-12-10 00:34] VITALS: BP 134/71
[2018-12-10] MEDS: PIPER-TAZ 3.375 GM 50 ML IV SCH ×2 (02:09→09:30)
[2018-12-10 04:00] VITALS: BP 147/73
[2018-12-10 08:10] VITALS: BP 165/75
[2018-12-10] MEDS: PANTOPRAZOLE 40 MG 10ML VIAL IV SCH (09:30)
[2018-12-10 11:11] VITALS: BP 105/68
[2018-12-10] MEDS ORDERED: LEVOFLOXACIN 500 MG TAB PO NR (12:00)
--- NOTE | 2018-12-10 12:40 | NUR ---
Dr. Razo made rounds and saw patient. Patient and his were given follow up instructions, they verbalized understanding.
--- NOTE | 2018-12-10 13:09 | NUR ---
Discharge instructions and prescription was given to the patient, he verbalized understanding. IV to the left arm was removed with tip intact.
--- NOTE | 2018-12-11 04:39 | Discharge Summary ---
PRIMARY CARE PHYSICIAN: Dr. Hawa Frey. DESKTOP SPECIALIST: Dr. Karlos Razo. FINAL DIAGNOSES: 1. Partial small bowel obstruction within the periumbilical. 2. Status post NG tube pain and status post repeat KUB, status post leukocytosis. 3. Able to tolerate all diet. SUMMARY: The patient is an 83-year-old male, who came in with small bowel obstruction. Repeated abdominal series showed that the resolution of gastric distension and a small bowel loop. The patient is stable. No further workup. The patient is comfortable. His white cell count was 29.8 thousand and following two days of antibiotics, now is 12.6 thousand. The patient is afebrile. He is doing well. Microbiology, urine culture final with no growth. The patient's vital signs stable as well. The patient tolerated all solid foods. The patient will go home today, has been cleared by Dr. Karlos Razo for discharge home. Follow up with Dr. Karlos Razo as an outpatient. The patient will resume his home medication. The patient is stable and discharged home today. MD LONNY Hernandez/ASTON /[id number]
== END 2018-12-10 13:20 | disposition home or self-care (01) | DRG 395 ==
LOC: ER 23:34 → ERHOLD 12-07 01:18 → MED/SURG2 12-07 13:44
PROVIDERS: ADMIT Internal Medicine; ATTEND Internal Medicine
DX: K42.0 Umbilical hernia with obstruction, without gangrene (principal); R11.10 Vomiting, unspecified; Z87.442 Personal history of urinary calculi; E78.5 Hyperlipidemia, unspecified; I10 Essential (primary) hypertension; Z90.79 Acquired absence of other genital organ(s); K63.89 Other specified diseases of intestine; Z82.49 Family history of ischemic heart disease and other diseases of the circulatory system; D72.829 Elevated white blood cell count, unspecified
CPT/HCPCS: 36415; 74019; 74022; 74176; 80053; 81001; 82948; 85025; 85610; 85730; 87086; 96374; 99284; J2270; J2405; J2543; J7030

== ENCOUNTER → 2018-12-21 | Outpatient (CLI) | payer MEDICARE, OTHER ==
[~2018-12-21] MED LIST changes: +LEVOCETIRIZINE D5 MG PO; +MELOXICAM7.5 MG PO; +MONTELUKAST SOD10 MG PO; +VITAMIN C1000 M2 PO
--- NOTE | 2018-12-21 08:15 | Diagnostic Imaging Report ---
EXAMINATION: CT scan of the chest without contrast. TECHNIQUE: Spiral CT images of the chest were performed from the lung apices to the level of the adrenal glands. No intravenous contrast was administered per referring physician request. Coronal and sagittal reformatted images were obtained. COMPARISON: Acute abdominal series 12/08/2018, CT abdomen and pelvis without contrast 12/07/2018 CLINICAL HISTORY:Chronic cough DISCUSSION: ABSENCE OF INTRAVENOUS CONTRAST DECREASES SENSITIVITY FOR DETECTION OF FOCAL LESIONS AND VASCULAR PATHOLOGY. LINES/TUBES: None. LUNGS AND AIRWAYS: Linear scarring in the superior segment of the left lower lobe. Juxtapleural calcified nodules in the superior segment of the left lower lobe. Calcified granuloma right upper lobe. Scattered foci of linear opacity in the lingula and right middle lobe. Linear and groundglass opacities in the lower lobes right greater than left. Mild probable post infectious right lower lobe bronchiectasis with bandlike atelectasis along right hemidiaphragmatic elevation. 6 mm juxtapleural noncalcified solid nodule left lower lobe series 3 image 82. Scattered foci of juxtapleural reticular and groundglass opacities in the medial right lower lobe and medial and posterior basal left lower lobe. No airspace consolidations. Trachea, mainstem bronchi, and central lobar and segmental bronchi are patent. PLEURA: No pneumothorax or pleural effusions. HEART AND MEDIASTINUM: Visualized portions of the thyroid gland appear normal. Atherosclerotic calcification of the thoracic aorta, great vessel origins, and iliamna coronary arteries. No ectasia or aneurysmal dilatation of the thoracic aorta. Pulmonary outflow tract is of normal caliber. Calcified right hilar lymph nodes. No axillary, hilar, or mediastinal lymphadenopathy. No pericardial effusion. LYMPH NODES: There is no mediastinal, hilar or axillary lymphadenopathy. ABDOMEN: Visualized portions of the liver, spleen, pancreas, and adrenal glands are grossly unremarkable in their unenhanced appearance. BONES AND SOFT TISSUES: No acute osseous abnormality. Multilevel degenerative disc changes of the lower cervical and thoracic spine. Healed fracture posterior left 10th rib. IMPRESSION: Evidence of prior granulomatous infection with calcified right hilar lymph nodes and multiple bilateral calcified granulomata. Scattered foci of post infectious or inflammatory fibrotic change, most notably in the right lower lobe with mild associated bronchiectasis. 6 mm left lower lobe juxtapleural nodule likely represents a noncalcified granuloma in light of additional findings above. Follow-up CT scan of the chest without contrast in one year is suggested to document stability. Atherosclerotic vascular disease. Signed by: Dr. Sean Ngo M.D. on 12/21/2018 8:11 AM
== END ==
LOC: CT 07:30
PROVIDERS: ATTEND Internal Medicine
DX: R05 Cough (principal)
CPT/HCPCS: 71250

== ENCOUNTER 2019-01-29 06:54 | Inpatient (IN) | payer MEDICARE, OTHER ==
--- NOTE | 2019-01-22 16:55 | Diagnostic Imaging Report ---
EXAMINATION: CHEST 2 VIEWS INDICATION: Pre-operative COMPARISON: Chest CT of 12/21/2018 FINDINGS: TUBES and LINES: None. LUNGS: The lungs are well-inflated. There is a calcified granuloma in the right midlung zone. Mild linear opacity at the left lung base, likely subsegmental atelectasis. Small pulmonary nodules seen on chest CT of 12/21/2018 are beyond the resolution of this radiograph. PLEURA: No pleural effusion or pneumothorax. HEART AND MEDIASTINUM: The cardiomediastinal silhouette is normal in size and contour. Atherosclerotic calcifications of the thoracic aorta. Right hemidiaphragmatic eventration and elevation. BONES AND SOFT TISSUES: No acute fracture or dislocation. UPPER ABDOMEN: No free air under the diaphragm. IMPRESSION: No focal pneumonia or pulmonary edema. Linear opacity at the left lung base, likely subsegmental atelectasis. Signed by: Travis Keys MD on 01/22/2019 4:51 PM
[2019-01-22 17:49] LABS: BASOPHILS % 0.3 % (0.0-1.0); EOSINOPHILS # (AUTO) 0.3 (0.0-0.4); EOSINOPHILS % 3.9 % (0.0-6.0); HEMOGLOBIN 13.4 g/dL (14.0-18.0); LYMPHOCYTES # (AUTO) 2.2 (1.0-3.2); LYMPHOCYTES % 24.6 % (18.0-39.1); MEAN CORPUSCULAR HEMOGLOBIN 29.6 pg (28-32); MEAN CORPUSCULAR HGB CONC 32.7 g/dL (31-35); MEAN CORPUSCULAR VOLUME 90.5 fL (81-99); MONOCYTES # (AUTO) 0.8 (0.2-0.8); MONOCYTES % 8.6 % (4.4-11.3); NEUTROPHILS # (AUTO) 5.5 (2.1-6.9); NEUTROPHILS % 62.1 % (38.7-80.0); PLATELET COUNT 196 x10e3/uL (140-360); RED BLOOD COUNT 4.53 x10e6/uL (4.3-5.7); RED CELL DISTRIBUTION WIDTH 13.5 % (11.7-14.4)
[2019-01-22 18:09] LABS: ANION GAP 13.1 mmol/L (8-16); CALCIUM 9.8 mg/dL (8.4-10.2); CREATININE, SERUM 1.16 mg/dL (0.72-1.25); POTASSIUM 4.1 mmol/L (3.5-5.1)
[~2019-01-29] VITALS: Ht 190.5 cm; Wt 85.3 kg
[2019-01-29] MEDS ORDERED: BUPIVACAINE 0.25%/EPI 30ML SDV INJ ONE ×2 (08:19→09:13)
[2019-01-29] MEDS ORDERED: ACETAMINOPHEN 1000 MG/100 ML IV PRN (14:15)
[2019-01-29] MEDS ORDERED: SODIUM CHLORIDE 0.9% 250ML IRRIG IR SCH (14:15)
[2019-01-29] MEDS ORDERED: FENTANYL CITRATE/PF 100MCG/2 ML INJ ONE ×2 (14:49→18:57)
[2019-01-29 15:40] VITALS: BP 155/71
[2019-01-29] MEDS: PANTOPRAZOLE 40 MG 10ML VIAL IV SCH (16:01)
[2019-01-29] MEDS: SODIUM CHLORIDE 0.9% 1000ML 1,000 ML IV SCH (16:01)
[2019-01-29] MEDS: ONDANSETRON HCL INJ 2MG/ML 2ML 2 MG/ML VIAL IV PRN (16:12)
[2019-01-29] MEDS: HYDROMORPHONE 1MG/1ML INJ IV PRN ×2 (16:12→23:33)
[2019-01-29 18:11] VITALS: BP 155/71
[2019-01-29] MEDS ORDERED: NEOSTIGMINE 5 MG/5ML SYR ONE (18:57)
[2019-01-29] MEDS ORDERED: ROCURONIUM BROMIDE 10 MG/ML 5ML VIAL ONE (18:57)
[2019-01-29] MEDS ORDERED: ONDANSETRON HCL INJ 2MG/ML 2ML 2 MG/ML VIAL ONE (18:57)
[2019-01-29] MEDS ORDERED: ACETAMINOPHEN 1000 MG/100 ML IV ONE (18:57)
[2019-01-29] MEDS ORDERED: LIDOCAINE HCL 2% LOCAL INJ 5 ML SDV VIAL INJ ONE (18:57)
[2019-01-29] MEDS ORDERED: GLYCOPYRROLATE INJ 1MG/ 5 ML SYR ONE (18:57)
[2019-01-29] MEDS ORDERED: PROPOFOL IV EMULSION 10 MG/ML 20 ML VIAL ONE (18:57)
[2019-01-29] MEDS ORDERED: DEXAMETHASONE SOD PHOS INJ 4 MG/ML VIAL ONE (18:57)
[2019-01-29] MEDS ORDERED: SEVOFLURANE INHAL SOLN 250 ML PEN BTL ONE (18:57)
[2019-01-29] MEDS ORDERED: MIDAZOLAM HCL 2 MG/2 ML VIAL ONE (18:57)
[2019-01-29] MEDS: NITROGLYCERIN 2% OINT 1 GM PKT TOP SCH (19:39)
[2019-01-29 19:42] VITALS: BP 155/71
--- NOTE | 2019-01-29 19:58 | NUR ---
RECEIVED PT IN BED AOX3 .DENIES PAIN PT HAS ABD DRESSING COVERING TROCHANTER SITES .RT FA 20 G NS AT 100 CC/HR .FAMILY AT THE BEDSIDE .CALL LIGHT WITH IN REACH CONTINE TO MONITOR
[2019-01-29 20:00] VITALS: BP 123/58
--- NOTE | 2019-01-29 20:21 | Operative Report ---
DATE OF PROCEDURE: 01/29/2019 SURGEON: Karlos Razo MD PREOPERATIVE DIAGNOSIS: Incarcerated ventral hernia. POSTOPERATIVE DIAGNOSIS: Incarcerated ventral hernia. OPERATION PERFORMED: Repair of multiple incarcerated ventral hernias with mesh. INSPECTOR MACHINED PARTS: HERNANDO Pandey. ANESTHESIA: General. COMPLICATIONS: None. ESTIMATED BLOOD LOSS: 50 mL. DESCRIPTION OF PROCEDURE: With the patient lying in bed in the supine position under good general endotracheal anesthesia, the abdomen was prepped with Betadine solution and draped in the usual manner. A midline incision was then made from the umbilicus up to encompass the old incision. Incision was deepened through the subcutaneous tissue and immediately multiple hernia sacs were encountered all the way along the incision. All of the hernia sacs were then slowly and carefully dissected and normal fascia was dissected laterally on all sides. The umbilicus was detached from the largest hernia sac. After this was done, all the defects were then opened and all the contents were from the hernia sacs and reduced back to the intraabdominal cavity. The large defect at the umbilicus contained some bowel. There were some adhesions of the bowel within the hernia sac and the bowel was slowly and carefully . There was a small serosal tear, which was repaired with 3-0 silk sutures and all of the bowel was then and reduced back to the intraabdominal cavity. In the intraabdominal cavity, the patient had numerous other adhesions, but these were away from the hernia sacs. After this was done, some of the holes in the upper abdomen were individually closed with interrupted sutures of #0 Prolene. After this was done, the entire midline was then plicated again and closed using interrupted sutures of #1 Prolene. This gave us a satisfactory primary closure, but we decided to go ahead and reinforce this with mesh. A 6 x 6 piece of Ultrapro mesh was then placed over the area and sutured all the way around with #0 Prolene and #0 Vicryl. This gave us a satisfactory repair without any tension. The whole area was then thoroughly irrigated. Perfect hemostasis was ascertained. The umbilicus was then tacked back down to the midline with 3-0 Vicryl. The subcutaneous tissue was approximated with 3-0 Vicryl and the skin was closed with clips. A dressing was applied. The sponge, lap, and needle count was correct. The patient tolerated the procedure well and returned to the recovery room in stable condition. MD ALETHA Ramos/ASTON /[id number]
[2019-01-29] MEDS: CEFAZOLIN SOD 1 GM/NS 50ML 50 ML IV SCH (22:02)
[2019-01-30] VITALS (8 sets, daily range): BP systolic 95–124; BP diastolic 50–58
[2019-01-30] MEDS: SODIUM CHLORIDE 0.9% 1000ML 1,000 ML IV SCH ×2 (00:15→13:37)
[2019-01-30 05:36] LABS: BASOPHILS % 0.1 % (0.0-1.0); HEMATOCRIT 34.9 % (38.2-49.6); HEMOGLOBIN 11.3 g/dL (14.0-18.0); LYMPHOCYTES # (AUTO) 1.6 (1.0-3.2); LYMPHOCYTES % 9.8 % (18.0-39.1); MEAN CORPUSCULAR HEMOGLOBIN 29.2 pg (28-32); MEAN CORPUSCULAR HGB CONC 32.4 g/dL (31-35); MEAN CORPUSCULAR VOLUME 90.2 fL (81-99); MONOCYTES # (AUTO) 1.3 (0.2-0.8); NEUTROPHILS # (AUTO) 13.2 (2.1-6.9); NEUTROPHILS % 81.5 % (38.7-80.0); PLATELET COUNT 227 x10e3/uL (140-360); RED BLOOD COUNT 3.87 x10e6/uL (4.3-5.7); RED CELL DISTRIBUTION WIDTH 13.2 % (11.7-14.4)
[2019-01-30 05:54] LABS: ANION GAP 11.5 mmol/L (8-16); BLOOD UREA NITROGEN 19 mg/dL (7-26); BUN/CREATININE RATIO 22 (6-25); CALCIUM 8.5 mg/dL (8.4-10.2); CARBON DIOXIDE 25 mmol/L (22-29); CHLORIDE 107 mmol/L (98-107); CREATININE, SERUM 0.86 mg/dL (0.72-1.25); EST GLOMERULAR FILTRATION RATE > 60 ML/MIN (60-); GLUCOSE 137 mg/dL (74-118); POTASSIUM 4.5 mmol/L (3.5-5.1); SODIUM 139 mmol/L (136-145)
[2019-01-30] MEDS: NITROGLYCERIN 2% OINT 1 GM PKT TOP SCH ×4 (06:00→18:00)
--- NOTE | 2019-01-30 06:09 | NUR ---
PT RESTED DURING THE NIGHT .GIVEN PAIN MEDICATIONX1 .B/P IS LOW .CALL LIGHT WITH IN REACH CONTINUE TO MONITOR
[2019-01-30] MEDS: CEFAZOLIN SOD 1 GM/NS 50ML 50 ML IV SCH (06:23)
--- NOTE | 2019-01-30 07:00 | NUR ---
received am report from nurse, morning rounds done. pt is alert, no s/s of distress. pt is complaining of pain and requesting pain medicine. call light within reach, pt instructed to call for help.
--- NOTE | 2019-01-30 07:37 | NUR ---
BEDSIDE REPORT GIVEN TO THE ONCOMING NURSE
[2019-01-30] MEDS: PANTOPRAZOLE 40 MG 10ML VIAL IV SCH (14:32)
--- NOTE | 2019-01-30 14:50 | NUR ---
Visit made by the Spiritual Care Department Pastoral Visitor, Magdalena Magaña. PV provided pastoral presence, hospitality, and supportive listening. Pastoral Visitor informed pt/family of the scope of Disability Manager Services and availability. MACKENZIE VALDES Technical Sales Representatives Spiritual Care Department O: [phone] Pager: [phone] ([phone] calling from)
[2019-01-30] MEDS: CEFTRIAXONE SOD 1 GM/NS 50 ML 50 ML IV SCH (18:30)
--- NOTE | 2019-01-30 20:00 | NUR ---
RECEIVED PT IN BED AOX3 .RESPIRATION ARE EVEN AND UNLABORED .CALL LIGHT WITH IN REACH .CONTINUE TO MONITOR
[2019-01-30] MEDS: HYDROMORPHONE 1MG/1ML INJ IV PRN (20:51)
[2019-01-31] VITALS (8 sets, daily range): BP systolic 101–152; BP diastolic 55–70
[2019-01-31] MEDS: SODIUM CHLORIDE 0.9% 1000ML 1,000 ML IV SCH ×3 (01:24→23:49)
[2019-01-31 05:27] LABS: BASOPHILS % 0.2 % (0.0-1.0); EOSINOPHILS # (AUTO) 0.2 (0.0-0.4); EOSINOPHILS % 2.2 % (0.0-6.0); HEMATOCRIT 33.4 % (38.2-49.6); LYMPHOCYTES # (AUTO) 1.3 (1.0-3.2); LYMPHOCYTES % 12.2 % (18.0-39.1); MEAN CORPUSCULAR HGB CONC 32.9 g/dL (31-35); MONOCYTES % 9.2 % (4.4-11.3); NEUTROPHILS # (AUTO) 8.1 (2.1-6.9); NEUTROPHILS % 75.9 % (38.7-80.0); PLATELET COUNT 200 x10e3/uL (140-360); RED BLOOD COUNT 3.67 x10e6/uL (4.3-5.7); RED CELL DISTRIBUTION WIDTH 13.2 % (11.7-14.4)
[2019-01-31 05:48] LABS: ALANINE AMINOTRANSFERASE 10 IU/L (0-55); ALBUMIN/GLOBULIN RATIO 1.2 (0.8-2.0); ALKALINE PHOSPHATASE 53 IU/L (40-150); ANION GAP 13.2 mmol/L (8-16); BLOOD UREA NITROGEN 12 mg/dL (7-26); BUN/CREATININE RATIO 15 (6-25); CALCIUM 8.4 mg/dL (8.4-10.2); CARBON DIOXIDE 24 mmol/L (22-29); CHLORIDE 106 mmol/L (98-107); CREATININE, SERUM 0.82 mg/dL (0.72-1.25); EST GLOMERULAR FILTRATION RATE > 60 ML/MIN (60-); GLUCOSE 142 mg/dL (74-118); POTASSIUM 4.2 mmol/L (3.5-5.1); SODIUM 139 mmol/L (136-145)
[2019-01-31] MEDS: HYDROMORPHONE 1MG/1ML INJ IV PRN ×3 (06:02→23:49)
[2019-01-31] MEDS: NITROGLYCERIN 2% OINT 1 GM PKT TOP SCH ×4 (06:10→18:00)
--- NOTE | 2019-01-31 06:50 | NUR ---
PT C/O PAIN AND GIVEN ORDERED PAIN MEDICATION ,PT RESTING CALL LIGHT WITH IN REACH CONTINUE TO MONITOR
--- NOTE | 2019-01-31 07:15 | NUR ---
REPORT GIVEN TO THE CHARGE NURSE
--- NOTE | 2019-01-31 07:33 | NUR ---
Rcvd patient in report this am. Patient is asleep in bed at this time. NO s/s of distress noted
[2019-01-31] MEDS: PANTOPRAZOLE 40 MG 10ML VIAL IV SCH (14:15)
[2019-01-31] MEDS ORDERED: BISACODYL 10 MG SUPP PR ONE (16:00)
--- NOTE | 2019-01-31 16:00 | NUR ---
pt complaining of constipation and no BM for [address] lucas jacobson and got an order for bisocodyl suppository X1 dose now.
[2019-01-31] MEDS: ONDANSETRON HCL INJ 2MG/ML 2ML 2 MG/ML VIAL IV PRN (17:27)
[2019-01-31] MEDS: CEFTRIAXONE SOD 1 GM/NS 50 ML 50 ML IV SCH (17:27)
--- NOTE | 2019-01-31 17:46 | NUR ---
IMM EXPLAINED TO PT, SIGNED BY PT AND PLACED ON CHART COPY TO PT IN CARE TRANSITIONS FOLDER
[2019-02-01] VITALS (8 sets, daily range): BP systolic 127–150; BP diastolic 63–74
[2019-02-01] MEDS: SODIUM CHLORIDE 0.9% 1000ML 1,000 ML IV SCH ×2 (04:00→17:35)
[2019-02-01] MEDS: NITROGLYCERIN 2% OINT 1 GM PKT TOP SCH ×4 (06:00→17:36)
--- NOTE | 2019-02-01 07:27 | NUR ---
RECEIVED PATIENT RESTING IN BED NO SIGNS OF DISTRESS. BED LOW, WHEELS LOCKED, SIDE RAILS X2. CALL LIGHT IN REACH. WILL CONTINUE TO MONITOR PATIENT.
[2019-02-01] MEDS ORDERED: BISACODYL 10 MG SUPP PR ONE (08:00)
--- NOTE | 2019-02-01 09:45 | NUR ---
PATIENT A/O X3, EVEN RESPIRATIONS ON 2LNC. LUNG SOUNDS CLEAR TO AUSCULTATION. ABDOMINAL DRESSING CLEAN, DRY, AND INTACT. RIGHT FA 20 GAUGE IV WITH NS @ 75. PATIENT AMBULATES INDEPENDENTLY. PASSING GAS AT THIS TIME BUT HAS NOT HAD A BOWEL MOVEMENT SINCE SURGERY. VITAL SIGNS STABLE. AT BEDSIDE. CALL LIGHT IN REACH WILL CONTINUE TO MONITOR PATIENT.
[2019-02-01] MEDS: HYDROCODONE/APAP 7.5MG-325MG 1 EA TAB PO PRN (10:06)
[2019-02-01] MEDS ORDERED: MAGNESIUM HYDROXIDE 30 ML UDC PO ONE (12:00)
[2019-02-01] MEDS: PANTOPRAZOLE 40 MG 10ML VIAL IV SCH (14:57)
--- NOTE | 2019-02-01 15:35 | NUR ---
PATIENT HAS HAD A SMALL BOWEL MOVEMENT AT THIS TIME.
[2019-02-01] MEDS: CEFTRIAXONE SOD 1 GM/NS 50 ML 50 ML IV SCH (17:36)
[2019-02-02] VITALS: BP 148/72
[2019-02-02] MEDS: NITROGLYCERIN 2% OINT 1 GM PKT TOP SCH ×3 (00:55→13:03)
[2019-02-02] MEDS: HYDROCODONE/APAP 7.5MG-325MG 1 EA TAB PO PRN (02:18)
[2019-02-02 04:00] VITALS: BP 154/73
--- NOTE | 2019-02-02 07:22 | NUR ---
BEDSIDE REPORT GIVEN TO ONCOMING NURSE, PATIENT AAOX3, NO NEEDS VOICED AT THIS TIME. BED LOCKED AND IN LOWEST POSITION, CALL LIGHT WITHIN REACH.
[2019-02-02] MEDS: SODIUM CHLORIDE 0.9% 1000ML 1,000 ML IV SCH (10:27)
[2019-02-02 10:33] VITALS: BP 154/73
[2019-02-02 10:39] VITALS: BP 132/67
[2019-02-02 12:14] VITALS: BP 116/62
[2019-02-02 16:06] VITALS: BP 161/81
[2019-02-02] MEDS ORDERED: NORCO 7.5-3251 EACH PO (16:34)
[2019-02-02] MEDS: PANTOPRAZOLE 40 MG 10ML VIAL IV SCH (17:05)
--- NOTE | 2019-02-02 17:10 | NUR ---
IMM SIGNED AND ON CHART COPY TO PT
== END 2019-02-02 17:09 | disposition home or self-care (01) | DRG 355 ==
LOC: OR 06:54 → PACU V 14:17 → MED/SURG 15:25
PROVIDERS: ADMIT Surgery; ATTEND Surgery
PROC: 0D9670Z Drainage of Stomach with Drainage Device, Via Natural or Artificial Opening (ICD-10-PCS; 2019-01-29)
PROC: 0WUF0JZ Supplement Abdominal Wall with Synthetic Substitute, Open Approach (ICD-10-PCS; principal; 2019-01-29 08:30)
DX: K43.6 Other and unspecified ventral hernia with obstruction, without gangrene (principal); Z79.82 Long term (current) use of aspirin
CPT/HCPCS: 36415; 71046; 80048; 80053; 85025; 93005; 96361; C1781; J0690; J0696; J1100; J1170; J2001; J2250; J2405; J3010; J7030

== ENCOUNTER → 2019-02-22 | Outpatient (CLI) | payer MEDICARE, OTHER ==
[~2019-02-22] MED LIST changes: +NORCO 7.5-3251 EACH PO
--- NOTE | 2019-02-22 13:00 | Diagnostic Imaging Report ---
Exam: KUB Clinical history: Renal calculus Findings: Significant retained feces are noted throughout the colon partially obscuring the renal shadow. However, no evidence of radiopaque stones are visualized in bilateral renal collecting system. Multiple surgical clips are seen in the lower pelvic region. There is nonobstructive bowel gas pattern. The regional osseous structures are unremarkable. Impression: 1. Retained feces throughout the colon which may represent constipation. 2. No radiopaque stones overlying the course of bilateral renal collecting systems. Signed by: Dr. Elbert Pastor MD on 02/22/2019 12:57 PM
== END ==
LOC: RAD 10:43
PROVIDERS: ATTEND Urology
DX: N20.0 Calculus of kidney (principal)
CPT/HCPCS: 74018

== ENCOUNTER → 2019-08-15 | Outpatient (CLI) | payer MEDICARE, OTHER ==
--- NOTE | 2019-08-15 13:08 | Diagnostic Imaging Report ---
Exam: KUB Comparison: February 22, 2019 Clinical history: Renal calculus Findings: Retained feces are noted throughout the colon obscuring the renal shadow. There is no definite evidence of radiopaque stones along the course of bilateral renal collecting systems. Multiple surgical clips are again noted in the pelvic region. The regional osseous structures are unremarkable. Impression: 1. Moderate retained feces. 2. Postoperative changes in the pelvic region. Signed by: Dr. Elbert Pastor MD on 08/15/2019 1:06 PM
== END ==
LOC: RAD 11:29
PROVIDERS: ATTEND Urology
DX: N20.0 Calculus of kidney (principal)
CPT/HCPCS: 74018

== ENCOUNTER → 2020-02-14 | Outpatient (CLI) | payer MEDICARE, OTHER ==
--- NOTE | 2020-02-14 10:07 | Diagnostic Imaging Report ---
Exam: KUB - 2 views Indication: Renal calculus Comparison: Multiple prior KUBs most recently 08/15/2019, CT abdomen and pelvis of 12/07/2018 Findings: 4 mm left midpole renal calculus. The right renal silhouette is obscured by a large stool burden within the left colon. Nonobstructive bowel gas pattern. No free air. Surgical clips in the pelvis. Atherosclerotic arterial calcifications. No acute osseous injury. Impression: 4 mm left midpole renal calculus. Signed by: Travis Keys MD on 02/14/2020 10:04 AM
== END ==
LOC: RAD 09:20
PROVIDERS: ATTEND Urology
DX: N20.0 Calculus of kidney (principal)
CPT/HCPCS: 74018

== ENCOUNTER → 2020-03-13 | Outpatient (CLI) | payer MEDICARE, OTHER ==
--- NOTE | 2020-03-13 16:30 | Diagnostic Imaging Report ---
EXAM: CT Chest WITHOUT intravenous contrast 03/13/2020 4:02 PM INDICATION: Pulmonary nodule COMPARISON: Chest CT of 12/21/2018, 07/28/2018 TECHNIQUE: Chest was scanned utilizing a multidetector helical scanner from the lung apex through the level of the adrenal glands without administration of IV contrast. Coronal and sagittal reformations were obtained. Low-dose protocol was performed. IV CONTRAST: None RADIATION DOSE: Total DLP: 245 mGy*cm. Dose modulation, iterative reconstruction, and/or weight based adjustment of the mA/kV was utilized to reduce the radiation dose to as low as reasonably achievable. COMPLICATIONS: None FINDINGS: LINES/ TUBES: None. LUNGS AND AIRWAYS: The central airways are patent. No focal consolidation or pulmonary edema. Scattered areas of unchanged subsegmental atelectasis and bronchiectasis involve the dependent portions of the right middle lobe and right lower lobe. Subpleural left lower lobe 5 mm pulmonary nodule is unchanged dating back to 07/28/2018. Unchanged right upper lobe 6 mm calcified granuloma. PLEURA: The pleural spaces are clear. HEART AND MEDIASTINUM: The thyroid gland is normal. No mediastinal, hilar or axillary lymphadenopathy. Unchanged scattered right hilar calcified lymph nodes. The heart is normal in size.. There is no pericardial effusion. Scattered atherosclerotic calcifications of the thoracic aorta, coronary arteries, and proximal great vessels. UPPER ABDOMEN: No acute findings in the upper abdomen. BONES: No acute osseous injury. No suspicious lytic or blastic lesions. SOFT TISSUES: Unremarkable. IMPRESSION: Interval stability of previous identified pulmonary nodules dating back to at least 07/28/2018. These findings are likely benign and do not require further imaging follow-up. Unchanged sequela of prior granulomatous disease including right calcified hilar lymph nodes and calcified granulomas. Signed by: Travis Keys MD on 03/13/2020 4:27 PM
== END ==
LOC: CT 15:25
PROVIDERS: ATTEND Internal Medicine
DX: R91.1 Solitary pulmonary nodule (principal)
CPT/HCPCS: 71250

== ENCOUNTER 2020-04-08 19:35 | Inpatient (IN) | payer MEDICARE, OTHER ==
[~2020-04-08] VITALS: Ht 190.5 cm; Wt 85.3 kg
--- NOTE | 2020-04-08 19:52 | Emergency Department Note ---
History of Present Illnes History of Present Illness Chief Complaint: COVID PUI History of Present Illness This is a 84 year old male presents to the ED for one day h/o of cough and fever.. Historian: Patient Arrival Mode: Car Supervisor Remelt Required: No Onset (how long ago): day(s) (1) Severity: mild Duration (how long): day(s) (1) Progression: unchanged Chronicity: new Context: Denies recent illness, Denies recent surgery, Denies recent immobilization, Denies recent travel, Denies trauma/injury, Denies new medications, Denies hx of DVT/PE, Denies non-compliance w/ medications, Denies other Relieving factors: none Exacerbating factors: none Associated symptoms: Reports cough, Reports fever/chills Treatments prior to arrival: none Past Medical/Family History Physician Review I have reviewed the patient's past medical and family history. Any updates have been documented here. Past Medical History Recent Fever: Yes Clinical Suspicion of Infectio: Yes New/Unexplained Change in Ment: No Past Medical History: Hypertension, Asthma, Cancer Other Medical History: prostate cancer Past Surgical History: Hernia Repair Other Surgery: prostate removed Social History Smoking Cessation: Never Smoker Alcohol Use: None Any Illegal Drug Use: No Other Last Tetanus: UNSURE Review of Systems Review of Systems Constitutional: Reports fever EENTM: Reports no symptoms Cardiovascular: Reports no symptoms Respiratory: Reports cough Gastrointestinal: Reports no symptoms Genitourinary: Reports no symptoms Musculoskeletal: Reports no symptoms Integumentary: Reports no symptoms Neurological: Reports no symptoms Psychological: Reports no symptoms Endocrine: Reports no symptoms Hematological/Lymphatic: Reports no symptoms Physical Exam Related Data Allergies: Coded Allergies: No Known Allergies (Unverified , 08/07/13) Triage Vital Signs Vital Signs Date Time Temp Pulse Resp B/P (MAP) Pulse Ox O2 Delivery O2 Flow Rate FiO2 04/08/20 20:17 102.2 67 20 138/58 97 Room Air 04/08/20 21:48 2.0 Vital signs reviewed: Yes Physical Exam CONSTITUTIONAL Constitutional: Present well-developed, Present well-nourished, Present ill appearing HENT HENT: Present normocephalic, Present atraumatic, Present oropharynx clear/moist, Present nose normal HENT L/R: Present left ext ear normal, Present right ext ear normal EYES Eyes: Reports PERRL, Reports conjunctivae normal NECK Neck: Present ROM normal PULMONARY Pulmonary: Present effort normal, Present breath sounds normal CARDIOVASCULAR Cardiovascular: Present regular rhythm, Present heart sounds normal, Present capillary refill normal, Present normal rate GASTROINTESTINAL Abdominal: Present soft, Present nontender, Present bowel sounds normal GENITOURINARY Genitourinary: Present exam deferred SKIN Skin: Present warm, Present dry MUSCULOSKELETAL Musculoskeletal: Present ROM normal NEUROLOGICAL Neurological: Present alert, Present oriented x 3, Present no gross motor or sensory deficits PSYCHOLOGICAL Psychological: Present mood/affect normal, Present judgement normal Results Laboratory Lab results reviewed: Yes Imaging Imaging results reviewed: Yes Impressions [place] [id number] Patient Name: JILLIAN CARBALLO MR #: [id number] : 1935 Age/Sex: 84/M Req #: [id number] Adm Physician: Ordered by: JASON TOMPKINS DO Report #: [id number] Location: ER Room/Bed: Procedure: [id number] DX/CHEST SINGLE (PORTABLE) Exam Date: 04/08/20 Exam Time: 2049 REPORT STATUS: Signed EXAMINATION: CHEST SINGLE (PORTABLE) INDICATION: Cough. COMPARISON: Multiple prior chest radiograph including most recent on 01/22/2019. Chest CT on 03/13/2020. FINDINGS: TUBES and LINES: None. LUNGS: Normal lung volumes. Lungs are clear. No consolidations. There is bibasilar atelectasis. Right upper lobe granuloma. PLEURA: No pleural effusion or pneumothorax. HEART AND MEDIASTINUM: The cardiomediastinal silhouette is unremarkable. BONES AND SOFT TISSUES: No acute osseous lesion. Soft tissues are unremarkable. UPPER ABDOMEN: No free air under the diaphragm. IMPRESSION: No acute thoracic radiographic abnormality. Signed by: Ayaka Joel MD on 04/08/2020 9:32 PM Dictated By: AYAKA JOEL MD 31 Transcribed By: SONDRA on 04/08/202131 COPY TO: JASON TOMPKINS DO~ Assessment & Plan Medical Decision Making MDM Diff Dx : COVID-19 URI, URI , sepsis , pneumonia, ACS, CHF Assessment & Plan Final Impression: (1) Person under investigation for COVID-19 Depart Disposition: ADMITTED Home Meds Reported Medications Aspirin (ECOTRIN) 81 Mg Tablet.dr, PO DAILY, #30 04/11/20 Zinc Sulfate (ZINC SULFATE) 220 Mg Tablet, 220 MG PO DAILY, #30 CAP 04/11/20 Ascorbic Acid (ASCORBIC ACID) 500 Mg Tablet, 500 MG PO DAILY, #30 TAB 04/11/20 Diazepam (DIAZEPAM) 5 Mg Tablet, 5 MG PO HS, #30 TAB 04/09/20 [vitamin d] No Conflict Check, 1000 UNITS PO DAILY 04/09/20 Olmesartan Medoxomil (BENICAR) 20 Mg Tablet, 40 MG PO DAILY, #30 TAB 04/09/20 Levocetirizine Dihydrochloride (LEVOCETIRIZINE DIHYDROCHLORIDE) 5 Mg Tablet, 5 MG PO DAILY 12/07/18 Montelukast Sodium (MONTELUKAST SODIUM) 10 Mg Tablet, 10 MG PO HS, #30 TAB 12/07/18 Atorvastatin Calcium (ATORVASTATIN CALCIUM) 20 Mg Tablet, 20 MG PO HS, #30 TAB 09/18/16 Discontinued Reported Medications Hydrocodone Bit/Acetaminophen (NORCO 7.5-325 TABLET) 1 Each Tablet, 1 EA PO Q4HR PRN for PAIN, TAB 02/02/19 Aspirin (ASPIRIN) 81 Mg Tab.chew, 81 MG PO DAILY 08/07/13 Olmesartan/Hydrochlorothiazide (BENICAR HCT 40-12.5 MG TABLET) 1 Each Tablet, MG PO DAILY 08/07/13 JASON TOMPKINS DO Apr 08, 2020 19:52
[2020-04-08] MEDS ORDERED: ACETAMINOPHEN 325 MG TAB PO STA (20:16)
[2020-04-08] MEDS ORDERED: PIPER-TAZ 3.375 GM 50 ML IV STA (20:20)
[2020-04-08 20:37] LABS: BASOPHILS % 0.3 % (0.0-1.0); EOSINOPHILS # (AUTO) 0.3 (0.0-0.4); EOSINOPHILS % 3.5 % (0.0-6.0); HEMATOCRIT 40.4 % (38.2-49.6); HEMOGLOBIN 13.6 g/dL (14.0-18.0); LYMPHOCYTES # (AUTO) 1.6 (1.0-3.2); LYMPHOCYTES % 20.2 % (18.0-39.1); MEAN CORPUSCULAR HEMOGLOBIN 31.1 pg (28-32); MEAN CORPUSCULAR HGB CONC 33.7 g/dL (31-35); MEAN CORPUSCULAR VOLUME 92.2 fL (81-99); MONOCYTES # (AUTO) 1.3 (0.2-0.8); MONOCYTES % 16.8 % (4.4-11.3); NEUTROPHILS # (AUTO) 4.7 (2.1-6.9); NEUTROPHILS % 58.8 % (38.7-80.0); PLATELET COUNT 144 x10e3/uL (140-360); RED BLOOD COUNT 4.38 x10e6/uL (4.3-5.7); RED CELL DISTRIBUTION WIDTH 12.6 % (11.7-14.4)
[2020-04-08 21:01] LABS: B-TYPE NATRIURETIC PEPTIDE2 58.2 pg/mL (0-100)
[2020-04-08 21:04] LABS: ALANINE AMINOTRANSFERASE 9 IU/L (0-55); ALBUMIN 3.9 g/dL (3.5-5.0); ALBUMIN/GLOBULIN RATIO 1.6 (0.8-2.0); ALKALINE PHOSPHATASE 61 IU/L (40-150); ANION GAP 16.4 mmol/L (8-16); BLOOD UREA NITROGEN 14 mg/dL (7-26); BUN/CREATININE RATIO 11 (6-25); CALCIUM 9.1 mg/dL (8.4-10.2); CARBON DIOXIDE 23 mmol/L (22-29); CHLORIDE 105 mmol/L (98-107); CREATINE KINASE 113 IU/L (30-200); CREATININE, SERUM 1.29 mg/dL (0.72-1.25); EST GLOMERULAR FILTRATION RATE 53 ML/MIN (60-); GLUCOSE 127 mg/dL (74-118); POTASSIUM 4.4 mmol/L (3.5-5.1); SODIUM 140 mmol/L (136-145)
--- OUTSIDE RECORDS SUMMARY | 2020-04-08 21:22 | XMS REPORT | Continuity of Care Document ---
Author Author [facility] t Organization [facility] Address [address] [place] [address] Phone Unavailable Care Team Providers Care Manager Of Creative Services Name Role Phone KATIE KUHN MD PCP COLOMER, L DEVENDRA Attphys Unavailable HERMILO ALLEN Attphys Unavailable Magui DUGAN Attphys Unavailable CONI TOMPKINS Attphys Unavailable KATIE KUHN Attphys Unavailable TOMPKINSCONI Admphys Unavailable Payers Payer Name Policy Type Policy Number Effective Date Expiration Date S demarcus Miscellaneous Indemnity [id number] 2016 00:00:00 [facility] Medicare A & B [id number] 2002 00:00:00 [facility] Problems Condition Name Condition Details Condition Category Status Onset Date Resolution Date Last Treatment Date Treating Clinician Comments Source Acute renal failure Acute renal failure Problem Active [facility] Incarcerated hernia Incarcerated hernia Problem Active [facility] Leukocytosis Leukocytosis Problem Active [facility] Small bowel obstruction SBO (small bowel obstruction) Problem Active [facility] Urinary tract infection UTI (urinary tract infection) Problem Active [facility] Calculus of ureter Ureterolithiasis Problem Active [facility] Allergies, Adverse Reactions, Alerts This patient has no known allergies or adverse reactions. Medications Ordered Medication Name Filled Medication Name Start Date Stop Da te Current Medication? Ordering Clinician Indication Dosage Frequency Signature (SIG) Comments Components Source Aspirin 81 Mg Tab.chew Aspirin 81 Mg Tab.chew Yes 81 Daily [facility] Atorvastatin Calcium 20 Mg Tablet Atorvastatin Calcium 20 Mg Tablet Yes 20 Bedtime [facility] Hydrocodone Bit/Acetaminophen ([place] 7.5-325 Tablet) 1 Each Tablet Hydrocodone Bit/Acetaminophen ([place] 7.5-325 Tablet) 1 Each Tablet Yes 1 Every 4 Hours as needed for Pain [facility] Levocetirizine Dihydrochloride 5 Mg Tablet Levocetiriz ine Dihydrochloride 5 Mg Tablet Yes 5 Daily [facility] Montelukast Sodium 10 Mg Tablet Montelukast Sodium 10 Mg Tablet Yes 10 Bedtime [facility] Olmesartan/Hydrochlorothiazide (Benicar Hct 40-12.5 Mg Tablet) 1 Each Tablet Olmesartan/Hydrochlorothiazide (Benicar Hct 40-12.5 Mg Tablet) 1 Each Tablet Yes Daily [facility] Ascorbic Acid (Vitamin C) 1,000 Mg Tablet.er, 1000 Mg Oral Ascorbic Acid (Vitamin C) 1,000 Mg Tablet.er, 1000 Mg Oral 2019-01-22 00:00:00 No 1000 Daily [facility] Meloxicam 7.5 Mg Tablet, 7.5 Mg Oral Meloxicam 7.5 Mg Tablet, 7. 5 Mg Oral 2019-01-22 00:00:00 No 7.5 Daily [facility] Ascorbic Acid (Vitamin C) 1,000 Mg Tab.chew, 1000 Mg O ral Ascorbic Acid (Vitamin C) 1,000 Mg Tab.chew, 1000 Mg Oral 2016-10-11 00:00:00 No 1000 Daily [facility] Penicillin V Potassium (Pencillin V Potassium*) 250 Mg Tab, 500 Mg Oral Penicillin V Potassium (Pencillin V Potassium*) 250 Mg Tab, 500 Mg Oral 2016-10-11 00:00:00 No 500 Three Times A Day [facility] Atorvastatin Calcium 20 Mg Tablet, 20 Mg Oral Atorvast atin Calcium 20 Mg Tablet, 20 Mg Oral 2015-04-17 00:00:00 No 20 Daily [facility] Procedures Procedure Date / Time Performed Performing Clinician [facility] e Repair of hernia of anterior abdominal wall 2019-01-29 00:00 :00 ULISES DUGAN [facility] X-ray of chest, two views 2019-01-22 00:00:00 ULISES DUGAN [facility] Computed tomography of chest without contrast 2018-12-21 00: 00:00 DEVENDRA PRUETT [facility] CT of abdomen and pelvis without contrast 2018-12-07 00:00:0 0 BARBARA LUNA [facility] Computed tomography of chest without contrast 2018-07-28 00: 00:00 [facility] X-ray of chest, two views 2018-07-21 00:00:00 [facility] Encounters Start Date/Time End Date/Time Encounter Type Admission Type [facility] Care Department Encounter ID Source 2019-01-29 14:17:00 2019-02-02 17:09:00 Discharged Inpatient 3 ULISES DUGAN [facility] [id number] [facility] 2018-12-21 07:30:00 2018-12-21 07:30:00 Registered Clinic 3 DEVENDRA PRUETT [facility] [id number] [facility] 2018-12-07 01:18:00 2018-12-10 13:20:00 Discharged Inpatient 1 CONI TOMPKINS [facility] [id number] [facility] 2018-08-24 09:30:00 2018-08-24 09:30:00 Registered Clinic [facility] [id number] [facility] 2018-08-18 10:35:00 2018-08-18 10:35:00 Registered Clinic 3 RAYMUNDOBLAIRHERMILO [facility] [id number] [facility] 2018-07-28 11:31:00 2018-07-28 11:31:00 Registered Clinic 3 [facility] [id number] [facility] 2018-07-21 09:32:00 2018-07-21 09:32:00 Registered Clinic 3 [facility] [id number] [facility] 2018-05-18 09:56:00 2018-05-18 09:56:00 Registered Clinic 3 HERMILO ALLEN [facility] [id number] [facility] 2018-02-20 15:54:00 2018-02-20 15:54:00 Registered Clinic 3 HERMILO ALLEN [facility] [id number] [facility] Results Test Description Test Time Test Comments Results Result Comments Source CT CHEST WO 2020-03-13 16:19:00 [place] [address] Patient Name: JILLIAN CARBALLO MR #: [id number] : 1935 Age/Sex: 84/M Req #: [id number] Adm Physician: Ordered by: DEVENDRA PRUETT MD Report #: [id number] Location: CT Room/Bed: Procedure: [id number] CT/CT CHEST WO Exam Date: 03/13/20 Exam Time: 1602 REPORT STATUS: Signed EXAM: CT Chest WITHOUT intravenous contrast 03/13/2020 4:02 PM INDICATION: Pulmonary nodule COMPARISON: Chest CT of 12/21/2018, 07/28/2018 TECHNIQUE: Chest was scanned utilizing a multidetector helical scanner from the lung apex through the level of the adrenal glands without administration of IV contrast. Coronal and sagittal reformations were obtained. Low-dose protocol was performed. IV CONTRAST: None RADIATION DOSE: Total DLP: 245 mGy*cm. Dose modulation, iterative reconstruction, and/or weight based adjustment of the mA/kV was utilized to reduce the radiation dose to as low as reasonably achievable. COMPLICATIONS: None FINDINGS: L IAN/ TUBES: None. LUNGS AND AIRWAYS: The central airways are patent. No focal consolidation or pulmonary edema. Scattered areas of unchanged subsegmental atelectasis and bronchiectasis involve the dependent portions of the right middle lobe and right lower lobe. Subpleural left lower lobe 5 mm pulmonary nodule is unchanged dating back to 07/28/2018. Unchanged right upper lobe 6 mm calcified granuloma. PLEURA: The pleural spaces are clear. HEART AND MEDIASTINUM: The thyroid gland is normal. No mediastinal, hilar or axillary lymphadenopathy. Unchanged scattered right hilar calcified lymph nodes. The heart is normal in size.. There is no pericardial effusion. Scattered atherosclerotic calcifications of the thoracic aorta, coronary arteries, and proximal great vessels. UPPER ABDOMEN: No acute findings in the upper abdomen. BONES: No acute osseous injury. No suspicious lytic or blastic lesions. SOFT TISSUES: Unremarkable. IMPRESSION: Interval stability of previous identified pulmonary nodules dating back to at least 07/28/2018. These findings are likely benign and do not require further imaging follow-up. Unchanged sequela of prior granulomatous disease including right calcified hilar lymph nodes and calcified granulomas. Signed by: France Fairchild MD on 03/13/2020 4:27 PM Dictated By: FRANCE FAIRCHILD MD Electronically S igned By: FRANCE FAIRCHILD MD on 03/13/201626 Transcribed By: SONDRA on 03/13/201626 COPY TO: DEVENDRA PRUETT MD ABDOMEN-1VIEW (KU) 2020-02-14 10:02:00 [place] [address] Patient Name: JILLIAN CARBALLO MR #: [id number] : 1935 Age/Sex: 84/M Req #: [id number] Adm Physician: Ordered by: HERMILO ALLEN MD Report #: [id number] Location: [facility] Room/Bed: Procedure: DX/ABDOMEN-1VIEW (KUB) Exam Date: 02/14/20 Exam Time: 919 REPORT STATUS: Signed Exam: KUB - 2 views Indication: Renal calculus Comparison: Multiple prior KUBs most recently 08/15/2019, CT abdomen and pelvis of 12/07/2018 Findings: 4 mm left midpole renal calculus. The right renal silhouette is obscured by a large stool burden wit hin the left colon. Nonobstructive bowel gas pattern. No free air. Surgical clips in the pelvis. Atherosclerotic arterial calcifications. No acute osseous injury. Impression: 4 mm left midpole renal calculus. Signed by: France Fairchild MD on 02/14/2020 10:04 AM Dictated By: FRANCE FAIRCHILD MD 1004 Transcribed By: SONDRA on 02/14/20 1004 COPY TO: HERMILO ALLEN MD ABDOMEN-1VIEW (KUB) 2019-08-15 13:02:00 [place] [address] Patient Name: JILLIAN CARBALLO MR #: [id number] : 1935 Age/Sex: 84/M Req #: [id number] Adm Physician: Ordered by: HERMILO ALLEN MD Report #: [id number] Location: [facility] Room/Bed: Procedure: DX/ABDOMEN-1VIEW (KUB) Exam Date: 08/15/19 Exam Time: 1150 REPORT STATUS: Signed Exam: KUB Comparison: February 22, 2019 Clinical history: Renal calculus Findings: Retained feces are noted throughout the colon obscuring the renal shadow. There is no definite evidence of radiopaque stones along the course of bilateral renal collecting systems. Multiple surgical clips are again noted in the pelvic region. The regional osseous structures are unremarkable. Impression: 1. Moderate retained feces. 2. Postoperative changes in the pelvic region. Signed by: Dr. Elbert Pastor MD on 08/15/2019 1:06 PM Dictated By: SUSAN PASTOR MD 1306 Transcribed By: SONDRA on 08/15/19 1306 COPY TO: HERMILO ALLEN MD ABDOMEN-1VIEW (KUB) 2019-02-22 12:55:00 [place] [address] Patient Name: JILLIAN CARBALLO MR #: [id number] : 1935 Age/Sex: 83/M Req #: [id number] Adm Physician: Ordered by: HERMILO ALLEN MD Report #: [id number] Location: RAD Room/Bed: Procedure: [id number] DX/ABDOMEN-1VIEW (KUB) Exam Date: Exam Time: REPORT STATUS: Signed Exam: KUB Clinical history: Renal calculus Findings: Significant retained feces are noted throughout the colon partially obscuring the renal shadow. However, no evidence of radiopaque stones are visualized in bilateral renal collecting system. Multiple surgical clips are seen in the lower pelvic region. There is nonobstructive bowel gas pattern. The regional osseous structures are unremarkable. Impression: 1. Retained feces throughout the colon which may represent constipation. 2. No radiopaque stones overlying the course of bilateral renal collecting systems. Signed by: Dr. Elbert Pastor MD on 02/22/2019 12:57 PM Dictated By: SUSAN PASTOR MD 1257 Transcribed By: SONDRA on 02/22/19 1257 COPY TO: HERMILO ALLEN MD Sodium Level 2019-01-31 05:51:00 Test Item Sodium Level (test code = 2951-2) 139 136-145 [facility] Ipzlq3637-23-48 05:51:00* Test Item Value Reference Range Interpretation Comments Potassium Level (test code = 2823-3) 4.2 3.5-5.1 [facility]Chloride Tojvh1935-84-03 05:51:00* Test Item Value Reference Range Interpretation Comments Chloride Level (test code = 2075-0) 106 98-107 [facility] DistrictCarbon Dioxide Zoerk3035-18-29 05:51:00* Test Item Value Reference Range Interpretation Comments Carbon Dioxide Level (test code = 2028-9) 24 - [facility] DistrictAnion Jwe5406-38-72 05:51:00* Test Item Value Reference Range Interpretation Comments Anion Gap (test code = 40835-9) 13.2 8-16 [facility] DistrictBlood Urea Aahtjdoa7873-15-53 05:51:00* Test Item Value Reference Range Interpretation Comments Blood Urea Nitrogen (test code = 3094-0) 12 7-26 [facility] DistrictCreatinine2019-07-31 05:51:00* Test Item Value Reference Range Interpretation Comments Creatinine (test code = 2160-0) 0.82 0.72-1.25 [facility] DistrictBUN/Creatinine Gdwak3403-15-10 05:51:00* Test Item Value Reference Range Interpretation Comments BUN/Creatinine Ratio (test code = 3097-3) 15 6- [facility] DistrictEstimat Glomerular Filtration Rate 2019-01-31 05:51:00* Test Item Value Reference Range Interpretation Comments Estimat Glomerular Filtration Rate (test code = 636209606) > 60 >60 Ranges were taken from the National Kidney Disease Education Program and the [facility] literature.Reference ranges:60 or greater: Ftolfe45-79 ( for 3 consecutive months): Chronic kidney disease 15 or less: Kidney failureBallinger Memorial Hospital DistrictGlucose Rvhkd7781-15-85 05:51:00* Test Item Value Reference Range Interpretation Comments Glucose Level (test code = EPQ7896) 142 74-118 H [facility] DistrictCalcium Rhtif7608-24-71 05:51:00* Test Item Value Reference Range Interpretation Comments Calcium Level (test code = 89888-0) 8.4 8.4-10.2 [facility] DistrictTotal Dxjpzcqli0218-42-65 05:51:00* Test Item Value Reference Range Interpretation Comments Total Bilirubin (test code = 1975-2) 1.3 0.2-1.2 H [facility] DistrictAspartate Amino Transf (AST/SGOT) 2019-01-31 05:51:00* Test Item Value Reference Range Interpretation Comments Aspartate Amino Transf (AST/SGOT) (test code = Aspartate Amino Transf (AST/SGOT)) 18 5-34 [facility] DistrictAlanine Aminotransferase (ALT/SGPT) 2019-01-31 05:51:00* Test Item Value Reference Range Interpretation Comments Alanine Aminotransferase (ALT/SGPT) (test code = 1742-6) 10 0-55 [facility] Rmmdgmv7888-96-51 05:51:00* Test Item Value Reference Range Interpretation Comments Total Protein (test code = 2885-2) 5.5 6.5-8.1 L [facility] DistrictAlbumin2019-07-31 05:51:00* Test Item Value Reference Range Interpretation Comments Albumin (test code = 1751-7) 3.0 3.5-5.0 L [facility] DistrictGlobulin2019-07-31 05:51:00* Test Item Value Reference Range Interpretation Comments Globulin (test code = 66869-8) 2.5 2.3-3.5 [facility] DistrictAlbumin/Globulin Jrbxg8646-54-58 05:51:00 * Test Item Value Reference Range Interpretation Comments Albumin/Globulin Ratio (test code = 1759-0) 1.2 0.8-2.0 [facility] DistrictAlkaline Zrsktakoczk3617-89-35 05:51:00* Test Item Value Reference Range Interpretation Comments Alkaline Phosphatase (test code = 6768-6) 53 40-150 [facility] DistrictWhite Blood Huigy4258-74-04 05:28:00* Test Item Value Reference Range Interpretation Comments White Blood Count (test code = 6690-2) 10.72 4.8-10.8 [facility] DistrictRed Blood Qxmim1106-55-52 05:28:00* Test Item Value Reference Range Interpretation Comments Red Blood Count (test code = 789-8) 3.67 4.3-5.7 L [facility] DistrictHemoglobin2019-07-31 05:28:00* Test Item Value Reference Range Interpretation Comments Hemoglobin (test code = 56916-9) 11.0 14.0-18.0 L [facility] DistrictHematocrit2019-07-31 05:28:00* Test Item Value Reference Range Interpretation Comments Hematocrit (test code = 4544-3) 33.4 38.2-49.6 L [facility] DistrictMean Corpuscular Qyuvbm8501-82-04 05:28:00* Test Item Value Reference Range Interpretation Comments Mean Corpuscular Volume (test code = 787-2) 91.0 81-99 [facility] DistrictMean Corpuscular Myqioivszy9357-76-59 05:28:00* Test Item Value Reference Range Interpretation Comments Mean Corpuscular Hemoglobin (test code = 785-6) 30.0 28-32 [facility] DistrictMean Corpuscular Hemoglobin Concent 2019-01-31 05:28:00* Test Item Value Reference Range Interpretation Comments Mean Corpuscular Hemoglobin Concent (test code = 786-4) 32.9 31-35 [facility] DistrictRed Cell Distribution Bayop2389-79-88 05:28:00* Test Item Value Reference Range Interpretation Comments Red Cell Distribution Width (test code = 90195-1) 13.2 11.7 -14.4 [facility] DistrictPlatelet Vspkr8321-59-51 05:28:00* Test Item Value Reference Range Interpretation Comments Platelet Count (test code = 777-3) 200 140-360 [facility] DistrictNeutrophils (%) (Auto)2019-01-31 05:28:00 * Test Item Value Reference Range Interpretation Comments Neutrophils (%) (Auto) (test code = 10104-8) 75.9 38.7-80.0 [facility] DistrictLymphocytes (%) (Auto)2019-01-31 05:28:00 * Test Item Value Reference Range Interpretation Comments Lymphocytes (%) (Auto) (test code = 736-9) 12.2 18.0-39.1 L [facility] DistrictMonocytes (%) (Auto)2019-01-31 05:28:00* Test Item Value Reference Range Interpretation Comments Monocytes (%) (Auto) (test code = 5905-5) 9.2 4.4-11.3 [facility] DistrictEosinophils (%) (Auto)2019-01-31 05:28:00 * Test Item Value Reference Range Interpretation Comments Eosinophils (%) (Auto) (test code = 713-8) 2.2 0.0-6.0 [facility] DistrictBasophils (%) (Auto)2019-01-31 05:28:00* Test Item Value Reference Range Interpretation Comments Basophils (%) (Auto) (test code = 706-2) 0.2 0.0-1.0 [facility] DistrictIM GRANULOCYTES %2019-01-31 05:28:00* Test Item Value Reference Range Interpretation Comments IM GRANULOCYTES % (test code = IM GRANULOCYTES %) 0.3 0.0- 1.0 [facility] DistrictNeutrophils # (Auto)2019-01-31 05:28:00* Test Item Value Reference Range Interpretation Comments Neutrophils # (Auto) (test code = 751-8) 8.1 2.1-6.9 H [facility] DistrictLymphocytes # (Auto)2019-01-31 05:28:00* Test Item Value Reference Range Interpretation Comments Lymphocytes # (Auto) (test code = 15064-4) 1.3 1.0-3.2 [facility] DistrictMonocytes # (Auto)2019-01-31 05:28:00* Test Item Value Reference Range Interpretation Comments Monocytes # (Auto) (test code = 742-7) 1.0 0.2-0.8 H [facility] DistrictEosinophils # (Auto)2019-01-31 05:28:00* Test Item Value Reference Range Interpretation Comments Eosinophils # (Auto) (test code = 711-2) 0.2 0.0-0.4 [facility] DistrictBasophils # (Auto)2019-01-31 05:28:00* Test Item Value Reference Range Interpretation Comments Basophils # (Auto) (test code = 704-7) 0.0 0.0-0.1 [facility] DistrictAbsolute Immature Granulocyte (auto 2019-01-31 05:28:00* Test Item Value Reference Range Interpretation Comments Absolute Immature Granulocyte (auto (jojo t code = Absolute Immature Granulocyte (auto) 0.03 0-0.1 [facility] DistrictCHEST 2 EGRIO6891-42-35 16:48:00 [place] [address] Patient Name: JILLIAN CARBALLO MR #: [id number] : 1935 Age/Sex: 83/M Req #: [id number] Adm Physician: Ordered by: ULISES DUGAN MD Report #: [id number] Location: OR Room/Bed: Procedure: [id number] D X/CHEST 2 VIEWS Exam Date: 01/22/19 Exam Time: 1634 REPORT STATUS: Signed EXAMINATIO N: CHEST 2 VIEWS INDICATION: Pre-operative COMPARISON: Chest CT o f 12/21/2018 FINDINGS: TUBES and LINES: None. LUNGS: The lungs are well-inflated. There is a calcified granuloma in the right midlung zone. Mild linear opacity at the left lung base, likely subsegmental atelectasis. Sm all pulmonary nodules seen on chest CT of 12/21/2018 are beyond the resolution of this radiograph. PLEURA: No pleural effusion or pneumothorax. HE ART AND MEDIASTINUM: The cardiomediastinal silhouette is normal in size and co ntour. Atherosclerotic calcifications of the thoracic aorta. Right hemidiaphra gmatic eventration and elevation. BONES AND SOFT TISSUES: No acute fracture or dislocation. UPPER ABDOMEN: No free air under the diaphragm. IMPRE SSION: No focal pneumonia or pulmonary edema. Linear opacity at the left lung base, likely subsegmental atelectasis. Signed by: France Fairchild MD on 01/22 4:51 PM Dictated By: FRANCE FAIRCHILD MD 50 Transcribed By: SONDRA on 01/22/191650 COPY T O: ULISES DUGAN MD CT CHEST [id number] 07:59:00 [place] [address] Patient Name: JILLIAN CARBALLO MR #: [id number] : 1935 Age/Sex: 83/M Req #: [id number] Adm Physician: Ordered by: DEVENDRA PRUETT MD Report #: [id number] Location: CT Room/Bed: Procedure: [id number] C T/CT CHEST WO Exam Date: 12/21/18 Exam Time: 0740 REPORT STATUS: Signed EXAMINATION: CT scan of the chest without contrast. TECHNIQUE: Spiral CT images of the chest were performed from the lung apices to the level of the adrenal glands. No intravenous contrast was administered per referring physician request. Co tomasa and sagittal reformatted images were obtained. COMPARISON: Acute ab dominal series 12/08/2018, CT abdomen and pelvis without contrast 12/07/2018 CLINICAL HISTORY:Chronic cough DISCUSSION: ABSENCE OF INTRAVENOUS CONTRAS T DECREASES SENSITIVITY FOR DETECTION OF FOCAL LESIONS AND VASCULAR PATHOLOGY. LINES/TUBES: None. LUNGS AND AIRWAYS: Linear scarring in the superi or segment of the left lower lobe. Juxtapleural calcified nodules in the super ior segment of the left lower lobe. Calcified granuloma right upper lobe. Scat tered foci of linear opacity in the lingula and right middle lobe. Linear and groundglass opacities in the lower lobes right greater than left. Mild probabl e post infectious right lower lobe bronchiectasis with bandlike atelectasis al tad right hemidiaphragmatic elevation. 6 mm juxtapleural noncalcified solid no dule left lower lobe series 3 image 82. Scattered foci of juxtapleural reticul ar and groundglass opacities in the medial right lower lobe and medial and pos terior basal left lower lobe. No airspace consolidations. Trachea, mainstem br onchi, and central lobar and segmental bronchi are patent. PLEURA: N o pneumothorax or pleural effusions. HEART AND MEDIASTINUM: Visualized p ortions of the thyroid gland appear normal. Atherosclerotic calcification of t he thoracic aorta, great vessel origins, and barrow coronary arteries. No ecta nyla or aneurysmal dilatation of the thoracic aorta. Pulmonary outflow tract is of normal caliber. Calcified right hilar lymph nodes. No axillary, hilar, or mediastinal lymphadenopathy. No pericardial effusion. LYMPH NODES: There is no mediastinal, hilar or axillary lymphadenopathy. ABDOMEN: Visualized p ortions of the liver, spleen, pancreas, and adrenal glands are grossly unremar kable in their unenhanced appearance. BONES AND SOFT TISSUES: No acute osse ous abnormality. Multilevel degenerative disc changes of the lower cervical an d thoracic spine. Healed fracture posterior left 10th rib. IMPRESSION: Evidence of prior granulomatous infection with calcified right hilar lymph nodes and multiple bilateral calcified granulomata. Scattered foci of post infectious or inflammatory fibrotic change, most notably in the right lower l obe with mild associated bronchiectasis. 6 mm left lower lobe juxtapleural nodule likely represents a noncalcified granuloma in light of additional findi ngs above. Follow-up CT scan of the chest without contrast in one year is sugg ested to document stability. Atherosclerotic vascular disease. Signed by: Dr. Wai Ngo M.D. on 12/21/2018 8:11 AM Dictated By: WAI VIERA MD 0 Transcribed By: SONDRA on 12/21/18810 COPY TO: DEVENDRA PRUETT MD Bedside Brfacqr2154-06-48 11:32:00* Test Item Value Reference Range Interpretation Comments Bedside Glucose (test code = 49997-2) 144 70-120 H Meter ID: [id number] [facility] 2018-12-10 11:32:00* Test Item Value Reference Range Interpretation Comments Bedside Glucose (test code = 87305-8) 144 70-120 H Meter ID: [id number] [facility] Mil/ANGELIKA FFS5713-11-61 06:16:00 [place] [address] Patient Name: JILLIAN CARBALLO MR #: [id number] : 1935 Age/Sex: 83/M Req #: [id number] Adm Physician: CONI TOMPKINS MD Ordered by: ULISES DUGAN MD Report #: [id number] Location: MED/SURG2 Room/Bed: [facility] Procedure: [id number] D X/ABDOMEN ACUTE SERIES W/PA CXR Exam Date: 12/08/18 Exam Time: 06 REPORT STATUS: Sign ed EXAM: Abdomen and chest, 4 radiographs INDICATION: sbo [id number] COMPARISON: Abdominal x-ray dated 12/07/2018, chest CT dated 9 FINDINGS: Nasogastric tube in place with tip coiled within gastric c ardia or distal esophagus. Resolved gaseous distention of small bowel loops, seen on prior x-ray. Nonobstructive bowel gas pattern. No signs of pneumoperi toneum. Several pelvic surgical clips. No acute osseous abnormality. Mi nimal bibasilar subsegmental atelectasis. Otherwise, lungs are clear. Right mi dlung nodular density, corresponds to a calcified granuloma seen on prior ches t CT. IMPRESSION: Resolution of gaseous distention of small bowel loops, seen on prior x-ray. Recommend repositioning of the nasogastric tube. Sig dusty by: Dr. Akash Vidal MD on 12/08/2018 6:21 AM Dictated By: AKASH MARISCAL MD 0 Transcribed By: SONDRA on 12/08/18620 COPY TO: ULISES DUGAN MD Sodium Fqjes1649-36-44 05:35:00* Test Item Value Reference Range Interpretation Comments Sodium Level (test code = 2951-2) 139 136-145 [facility]Pot[facility] Ruoat0319-12-30 05:35:00* Test Item Value Reference Range Interpretation Comments Potassium Level (test code = 2823-3) 4.1 3.5-5.1 [facility] DistrictChloride Lzbwk8878-21-47 05:35:00* Test Item Value Reference Range Interpretation Comments Chloride Level (test code = 2075-0) 107 98-107 [facility] DistrictCarbon Dioxide Qyjsn6877-62-77 05:35:00* Test Item Value Reference Range Interpretation Comments Carbon Dioxide Level (test code = 2028-9) 27 22-29 [facility] DistrictAnion Dly5097-14-65 05:35:00* Test Item Value Reference Range Interpretation Comments Anion Gap (test code = 23351-1) 9.1 8-16 [facility] DistrictBlood Urea Beuippvm3874-68-34 05:35:00* Test Item Value Reference Range Interpretation Comments Blood Urea Nitrogen (test code = 3094-0) 19 7-26 [facility] DistrictCreatinine2019-06-07 05:35:00* Test Item Value Reference Range Interpretation Comments Creatinine (test code = 2160-0) 0.93 0.72-1.25 [facility] DistrictBUN/Creatinine Yvidl2293-75-36 05:35:00* Test Item Value Reference Range Interpretation Comments BUN/Creatinine Ratio (test code = 3097-3) 20 6-25 [facility] DistrictEstimat Glomerular Filtration Rate 2018-12-08 05:35:00* Test Item Value Reference Range Interpretation Comments Estimat Glomerular Filtration Rate (test code = 637743822) > 60 >60 Ranges were taken from the National Kidney Disease Education Program and the [facility] literature.Reference ranges:60 or greater: Lgxmea71-36 ( for 3 consecutive months): Chronic kidney disease 15 or less: Kidney failureBallinger Memorial Hospital DistrictGlucose Emmpg9361-67-92 05:35:00* Test Item Value Reference Range Interpretation Comments Glucose Level (test code = YKE1167) 132 74-118 H [facility] DistrictCalcium Uotur7493-49-42 05:35:00* Test Item Value Reference Range Interpretation Comments Calcium Level (test code = 95537-0) 8.7 8.4-10.2 [facility] DistrictTotal Msdytgbmj9211-87-21 05:35:00* Test Item Value Reference Range Interpretation Comments Total Bilirubin (test code = 1975-2) 2.7 0.2-1.2 H [facility] DistrictAspartate Amino Transf (AST/SGOT) 2018-12-08 05:35:00* Test Item Value Reference Range Interpretation Comments Aspartate Amino Transf (AST/SGOT) (test code = Aspartate Amino Transf (AST/SGOT)) 15 5-34 [facility] DistrictAlanine Aminotransferase (ALT/SGPT) 2018-12-08 05:35:00* Test Item Value Reference Range Interpretation Comments Alanine Aminotransferase (ALT/SGPT) (test code = 1742-6) 10 0-55 [facility] DistrictTotal Xzlcjjw4254-79-52 05:35:00* Test Item Value Reference Range Interpretation Comments Total Protein (test code = 2885-2) 5.2 6.5-8.1 L [facility] DistrictAlbumin2019-06-07 05:35:00* Test Item Value Reference Range Interpretation Comments Albumin (test code = 1751-7) 2.8 3.5-5.0 L [facility] DistrictGlobulin2019-06-07 05:35:00* Test Item Value Reference Range Interpretation Comments Globulin (test code = 16603-2) 2.4 2.3-3.5 [facility] DistrictAlbumin/Globulin Rujeh9597-26-44 05:35:00 * Test Item Value Reference Range Interpretation Comments Albumin/Globulin Ratio (test code = 1759-0) 1.2 0.8-2.0 [facility] DistrictAlkaline Zwnbswkpkud2299-09-92 05:35:00* Test Item Value Reference Range Interpretation Comments Alkaline Phosphatase (test code = 6768-6) 42 40-150 [facility] DistrictWhite Blood Nlrjn8491-09-34 05:01:00* Test Item Value Reference Range Interpretation Comments White Blood Count (test code = 6690-2) 12.67 4.8-10.8 H [facility] DistrictRed Blood Awsjn4146-83-24 05:01:00* Test Item Value Reference Range Interpretation Comments Red Blood Count (test code = 789-8) 4.37 4.3-5.7 [facility] DistrictHemoglobin2019-06-07 05:01:00* Test Item Value Reference Range Interpretation Comments Hemoglobin (test code = 05763-8) 13.2 14.0-18.0 L [facility] DistrictHematocrit2019-06-07 05:01:00* Test Item Value Reference Range Interpretation Comments Hematocrit (test code = 4544-3) 38.9 38.2-49.6 [facility] DistrictMean Corpuscular Ihvvgy8501-75-98 05:01:00* Test Item Value Reference Range Interpretation Comments Mean Corpuscular Volume (test code = 787-2) 89.0 81-99 [facility] DistrictMean Corpuscular Ujsydqzlyh0430-90-63 05:01:00* Test Item Value Reference Range Interpretation Comments Mean Corpuscular Hemoglobin (test code = 785-6) 30.2 28-32 [facility] DistrictMean Corpuscular Hemoglobin Concent 2018-12-08 05:01:00* Test Item Value Reference Range Interpretation Comments Mean Corpuscular Hemoglobin Concent (test code = 786-4) 33.9 31-35 [facility] DistrictRed Cell Distribution Mzzun6625-14-37 05:01:00* Test Item Value Reference Range Interpretation Comments Red Cell Distribution Width (test code = 87284-4) 13.1 11.7 -14.4 [facility] DistrictPlatelet Dvfgq0127-36-94 05:01:00* Test Item Value Reference Range Interpretation Comments Platelet Count (test code = 777-3) 173 140-360 [facility] DistrictNeutrophils (%) (Auto)2018-12-08 05:01:00 * Test Item Value Reference Range Interpretation Comments Neutrophils (%) (Auto) (test code = 43246-7) 73.7 38.7-80.0 [facility] DistrictLymphocytes (%) (Auto)2018-12-08 05:01:00 * Test Item Value Reference Range Interpretation Comments Lymphocytes (%) (Auto) (test code = 736-9) 11.2 18.0-39.1 L [facility] DistrictMonocytes (%) (Auto)2018-12-08 05:01:00* Test Item Value Reference Range Interpretation Comments Monocytes (%) (Auto) (test code = 5905-5) 9.6 4.4-11.3 [facility] DistrictEosinophils (%) (Auto)2018-12-08 05:01:00 * Test Item Value Reference Range Interpretation Comments Eosinophils (%) (Auto) (test code = 713-8) 4.7 0.0-6.0 [facility] DistrictBasophils (%) (Auto)2018-12-08 05:01:00* Test Item Value Reference Range Interpretation Comments Basophils (%) (Auto) (test code = 706-2) 0.2 0.0-1.0 [facility] DistrictIM GRANULOCYTES %2018-12-08 05:01:00* Test Item Value Reference Range Interpretation Comments IM GRANULOCYTES % (test code = IM GRANULOCYTES %) 0.6 0.0- 1.0 [facility] DistrictNeutrophils # (Auto)2018-12-08 05:01:00* Test Item Value Reference Range Interpretation Comments Neutrophils # (Auto) (test code = 751-8) 9.4 2.1-6.9 H [facility] DistrictLymphocytes # (Auto)2018-12-08 05:01:00* Test Item Value Reference Range Interpretation Comments Lymphocytes # (Auto) (test code = 91151-0) 1.4 1.0-3.2 [facility] DistrictMonocytes # (Auto)2018-12-08 05:01:00* Test Item Value Reference Range Interpretation Comments Monocytes # (Auto) (test code = 742-7) 1.2 0.2-0.8 H [facility] DistrictEosinophils # (Auto)2018-12-08 05:01:00* Test Item Value Reference Range Interpretation Comments Eosinophils # (Auto) (test code = 711-2) 0.6 0.0-0.4 H [facility] DistrictBasophils # (Auto)2018-12-08 05:01:00* Test Item Value Reference Range Interpretation Comments Basophils # (Auto) (test code = 704-7) 0.0 0.0-0.1 [facility] DistrictAbsolute Immature Granulocyte (auto 2018-12-08 05:01:00* Test Item Value Reference Range Interpretation Comments Absolute Immature Granulocyte (auto (jjoo t code = Absolute Immature Granulocyte (auto) 0.07 0-0.1 [facility] DistrictProthrombin Nbyc6295-08-92 09:26:00* Test Item Value Reference Range Interpretation Comments Prothrombin Time (test code = 5902-2) 11.9 11.9-14.5 [facility] DistrictProthromb Time International Ratio 2018-12-07 09:26:00* Test Item Value Reference Range Interpretation Comments Prothromb Time International Ratio (test code = 6301-6) 0.83 Oral Anticoagulant Therapy INR Values:1. Low Intensity Therapy 1.5 - 2.02 . Moderate Intensity Therapy 2.0 - 3.03. High Intensity Therapy(1) 2.5 - 3. 54. High Intensity Therapy(2) 3.0 - 4.05. Panic Value INR > 5.0 [facility] DistrictActivated Partial Thromboplast Time 2018-12-07 09:26:00* Test Item Value Reference Range Interpretation Comments Activated Partial Thromboplast Time (test code = 92416-8) 26.4 23.8-35.5 [facility] DistrictProthrombin Rgru7094-33-82 09:26:00* Test Item Value Reference Range Interpretation Comments Prothrombin Time (test code = 5902-2) 11.9 11.9-14.5 [facility] DistrictProthromb Time International Ratio 2018-12-07 09:26:00* Test Item Value Reference Range Interpretation Comments Prothromb Time International Ratio (test code = 6301-6) 0.83 Oral Anticoagulant Therapy INR Values:1. Low Intensity Therapy 1.5 - 2.02 . Moderate Intensity Therapy 2.0 - 3.03. High Intensity Therapy(1) 2.5 - 3. 54. High Intensity Therapy(2) 3.0 - 4.05. Panic Value INR > 5.0 [facility] DistrictActivated Partial Thromboplast Time 2018-12-07 09:26:00* Test Item Value Reference Range Interpretation Comments Activated Partial Thromboplast Time (test code = 23019-7) 26.4 23.8-35.5 [facility] DistrictABDOMEN 2 YMIR5726-14-78 08:53:00 [facility] [address] [place] [address] Patient Name: JILLIAN CARBALLO MR #: [id number] : 1935 Age/Sex: 83/M Req #: [id number] Adm Physician: CONI TOMPKINS MD Ordered by: BARBARA LUNA MD Report #: [id number] Location: [facility] Room/Bed: [place] [address] Procedure: 0 DX/ABDOMEN 2 VIEW Exam Date: 12/07/18 Exam Time: 0 835 REPORT STATUS: Signed Exam: KUB - 3 views Clinical History: Incarcerated abdominal hernia with small josselyn wel obstruction. Comparison: CT abdomen/pelvis without contrast 12/07/2018. Findings: There are dilated small bowel loops in the left hemiabdomen, me asuring up to 4.9 cm. The distal small bowel loops are decompressed. Air and s tool contents are seen within a nondistended colon and rectum. No evidence of free intraperitoneal air. Enteric tube terminates in the proximal stomach . Previously noted left-sided renal stone is obscured by overlying bowel ga s. No acute osseous abnormality. Surgical clips project over the bilateral pel vis. Impression: Findings of ongoing partial small bowel obstruction. Signed by: Dr. Chay Tellez MD on 12/07/2018 8:57 AM Dictated By: CHAY WHARTON MD 6 Transcribed By: SONDRA on 12/07/18856 COPY TO: BARBARA LUNA MD Urine BBJ5323-35-04 00:25:00* Test Item Value Reference Range Interpretation Comments Urine WBC (test code = 5821-4) 6-10 0-5 H [facility] DistrictUrine ZTX9762-45-30 00:25:00* Test Item Value Reference Range Interpretation Comments Urine RBC (test code = 03524-4) 6-10 0-5 H [facility] DistrictUrine Vlzqczxl3808-31-06 00:25:00* Test Item Value Reference Range Interpretation Comments Urine Bacteria (test code = 92829-3) MANY NONE H [facility] DistrictUrine Epithelial Jtvgi4956-31-01 00:25:00 * Test Item Value Reference Range Interpretation Comments Urine Epithelial Cells (test code = 94575-4) FEW NONE [facility] DistrictUrine Hyaline Slrru7402-03-26 00:25:00* Test Item Value Reference Range Interpretation Comments Urine Hyaline Casts (test code = 75564-9) 2-5 0-1 H [facility] DistrictUrine Fnguf0533-18-96 00:25:00* Test Item Value Reference Range Interpretation Comments Urine Mucus (test code = 8247-9) MANY RARE H [facility] DistrictUrine VQQ7865-32-81 00:25:00* Test Item Value Reference Range Interpretation Comments Urine WBC (test code = 5821-4) 6-10 0-5 H [facility] DistrictUrine HZW5747-95-66 00:25:00* Test Item Value Reference Range Interpretation Comments Urine RBC (test code = 45475-5) 6-10 0-5 H [facility] DistrictUrine Ixmnaior2125-21-65 00:25:00* Test Item Value Reference Range Interpretation Comments Urine Bacteria (test code = 34648-1) MANY NONE H [facility] DistrictUrine Epithelial Emvui0044-15-54 00:25:00 * Test Item Value Reference Range Interpretation Comments Urine Epithelial Cells (test code = 27729-3) FEW NONE [facility] DistrictU[facility] Hyaline Aewiq1139-34-87 00:25:00* Test Item Value Reference Range Interpretation Comments Urine Hyaline Casts (test code = 64457-7) 2-5 0-1 H [facility] DistrictU[facility] Tsgry1505-84-43 00:25:00* Test Item Value Reference Range Interpretation Comments Urine Mucus (test code = 8247-9) MANY RARE H [facility] DistrictCT ABDOMEN/PELVIS PM3912-93-87 00:24:00 [facility] [address] [place] [address] Patient Name: JILLIAN CARBALLO MR #: [id number] : 1935 Age/Sex: 83/M Req #: [id number] Adm Physician: Ordered by: BARBARA LUNA MD Report #: [id number] Location: ER Room/Bed: Procedure: [id number]/CT ABDOMEN/PELVIS WO Exam Date: 12/07/18 Exam T florence: 0005 REPORT STATUS: Signed EXAM: CT Abdomen and Pelvis WITHOUT contrast INDICATION: left flank pain 20181207 0005 Y COMPARISON: Abdominal x-ray dated 08/18/2018, c hest CT dated 07/28/2018, CT abdomen/pelvis dated 12/28/2017 TECHNIQUE: Abdome n and pelvis were scanned utilizing a multidetector helical scanner from the l kimber base to the pubic symphysis without administration of IV contrast. Absence of intravenous contrast decreases sensitivity for detection of focal lesions and vascular pathology. Coronal and sagittal reformations were obtained. Routi ne protocol was performed. IV CONTRAST: None ORAL CONTRAST: Water COMPLICATIONS: None RADIATION DOSE: Total DLP: 450 .55 mGy*cm Estimated effective dose: (DLP x 0.015 x size factor) mSv CTDIvol has been reviewed. It is below the limits set by the Radiation Prot ocol Committee (RPC). FINDINGS: LINES and TUBES: None. LOWER THOR AX: Unchanged subpleural left lower lobe nodules and right basilar scarring. Partially visualized atherosclerotic calcification of coronary arteries. HEPATOBILIARY: Unenhanced liver is unremarkable. No biliary ductal dilati on. GALLBLADDER: No radio-opaque stones or sludge. No wall thickening. SPLEEN: No splenomegaly. PANCREAS: No focal masses or ductal dilatation. ADRENALS: No adrenal nodules KIDNEYS/URETERS: No hydronephros is. Limited for evaluation of renal parenchyma without intravenous contrast. R ight renal superior pole parapelvic cyst. Left midpole 5 mm calculus. GI TRACT: Dilated air and fluid-filled proximal small bowel loops along with col lapsed right lower quadrant more distal small bowel loops. Transition point is within right periumbilical hernia. There are diverticula within the colon wi thout evidence of diverticulitis. Small hiatal hernia. PELVIC ORGANS/BLADD ER: Bladder is collapsed, limiting evaluation. Prostatectomy and pelvic sidewa ll no lumbarization clips. LYMPH NODES: No lymphadenopathy. VESSELS: T here is mild atherosclerotic disease in the aorta and major arterial branches. PERITONEUM / RETROPERITONEUM: No free air or fluid. BONES: Degenerati ve changes of lower lumbar spine. SOFT TISSUES: Several small fat-containin g ventral hernias as well as a bowel containing periumbilical hernia as descri bed above. IMPRESSION: 1. At least partial small bowel obstr uction with transition point within periumbilical probably incarcerated ventra l hernia. 2. 5 mm left renal midpole nonobstructive calculus. No evidence of obstructive urolithiasis. Signed by: Dr. Akash Vidal MD on 12/07/2018 12 :38 AM Dictated By: AKASH VIDAL MD Transcribed By: SONDRA on 12/07/1837 COPY TO : BARBARA LUNA MD Urine Gqusy7162-60-79 00:15:00* Test Item Value Reference Range Interpretation Comments Urine Color (test code = 5778-6) YELLOW YELLOW [facility] Wxosoyr6920-20-26 00:15:00* Test Item Value Reference Range Interpretation Comments Urine Clarity (test code = 41496-6) CLEAR CLEAR [facility] DistrictU[facility] Specific Fkuagfn5146-87-25 00:15:00 * Test Item Value Reference Range Interpretation Comments Urine Specific [place] (test code = 5811-5) >=1.030 1.010-1.02 5 [facility] DistrictU[facility] wM0371-63-36 00:15:00* Test Item Value Reference Range Interpretation Comments Urine pH (test code = 17685-4) 5.5 5-7 [facility] Leukocyte Eijcwita5433-05-16 00:15:00* Test Item Value Reference Range Interpretation Comments Urine Leukocyte Esterase (test code = 22270-1) NEGATIVE NEGATIV E [facility] DistrictU[facility] Mtvnoew7269-64-51 00:15:00* Test Item Value Reference Range Interpretation Comments Urine Nitrite (test code = 98710-1) NEGATIVE NEGATIVE [facility] Tnkofjh1871-85-44 00:15:00* Test Item Value Reference Range Interpretation Comments Urine Protein (test code = 95157-3) TRACE NEGATIVE H [facility] DistrictU[facility] Glucose (UA)2018-12-07 00:15:00* Test Item Value Reference Range Interpretation Comments Urine Glucose (UA) (test code = 84176-5) NEGATIVE NEGATIVE [facility] Rojnrcy8850-40-48 00:15:00* Test Item Value Reference Range Interpretation Comments Urine Ketones (test code = 28275-6) TRACE NEGATIVE H [facility] DistrictU[facility] Arxkyplcmzsp0998-45-08 00:15:00* Test Item Value Reference Range Interpretation Comments Urine Urobilinogen (test code = 23741-3) 0.2 0.2-1 [facility] Conlgozav3846-98-74 00:15:00* Test Item Value Reference Range Interpretation Comments Urine Bilirubin (test code = 1977-8) NEGATIVE NEGATIVE [facility] Ppwmh4286-70-80 00:15:00* Test Item Value Reference Range Interpretation Comments Urine Blood (test code = 81993-8) NEGATIVE NEGATIVE [facility] Wffes5327-10-13 00:15:00* Test Item Value Reference Range Interpretation Comments Urine Color (test code = 5778-6) YELLOW YELLOW [facility] Zwoyjio7294-88-68 00:15:00* Test Item Value Reference Range Interpretation Comments Urine Clarity (test code = 07383-5) CLEAR CLEAR [facility] Specific Ljhnlzf6543-54-34 00:15:00 * Test Item Value Reference Range Interpretation Comments Urine Specific [place] (test code = 5811-5) >=1.030 1.010-1.02 5 [facility] hP3482-82-29 00:15:00* Test Item Value Reference Range Interpretation Comments Urine pH (test code = 69695-5) 5.5 5-7 [facility] Leukocyte Aggcidem1715-87-58 00:15:00* Test Item Value Reference Range Interpretation Comments Urine Leukocyte Esterase (test code = 44798-8) NEGATIVE NEGATIV E [facility] Fulicas8026-02-10 00:15:00* Test Item Value Reference Range Interpretation Comments Urine Nitrite (test code = 97954-6) NEGATIVE NEGATIVE [facility] Kcqafpk7577-99-79 00:15:00* Test Item Value Reference Range Interpretation Comments Urine Protein (test code = 76714-7) TRACE NEGATIVE H [facility] DistrictU[facility] Glucose (UA)2018-12-07 00:15:00* Test Item Value Reference Range Interpretation Comments Urine Glucose (UA) (test code = 68010-5) NEGATIVE NEGATIVE [facility] Vkqsnlz8334-91-02 00:15:00* Test Item Value Reference Range Interpretation Comments Urine Ketones (test code = 95084-2) TRACE NEGATIVE H [facility] DistrictU[facility] Dvvtndfqdaaz4403-17-37 00:15:00* Test Item Value Reference Range Interpretation Comments Urine Urobilinogen (test code = 02235-9) 0.2 0.2-1 [facility] Ugmhjpuio8911-06-75 00:15:00* Test Item Value Reference Range Interpretation Comments Urine Bilirubin (test code = 1977-8) NEGATIVE NEGATIVE [facility] Hkvjt3409-54-20 00:15:00* Test Item Value Reference Range Interpretation Comments Urine Blood (test code = 64188-1) NEGATIVE NEGATIVE [facility] DistrictABDOMEN-1VIEW (KUB)2018-08-18 11:32:00 [place] [address] Patient Name: JILLIAN CARBALLO MR #: [id number] : 1935 Age/Sex: 83/M Req #: [id number] Adm Physician: Ordered by: HERMILO ALLEN MD Report #: [id number] Location: [facility] Room/Bed: Procedure: [id number] DX/A BDOMEN-1VIEW (KUB) Exam Date: 08/18/18 Exam Time: 10 45 REPORT STATUS: Signed EXAMINA TION: ABDOMEN-1VIEW (KUB) INDICATION: Renal calculus. COMPARISON : CT Abdomen/Pelvis 09/18/16 and KUB 05/18/2018. FINDINGS: Unchange d appearance of 4 mm calcification overlying the left upper pole kidney. No ev idence of additional calcifications overlying the kidneys or expected course o f the ureters. Postsurgical changes with clips overlying the bilateral pelv is. Nonobstructive bowel gas pattern. No acute osseous abnormality. IMPRE SSION: Similar appearance of 4 mm left upper pole renal calculus. Signed by: Dr. Chay Tellez MD on 08/18/2018 11:35 AM Dictated By: CHAY TELLEZ MD 1135 Transcribed By: MARCIA ALBARRAN on 08/18/18 1135 COPY TO: HERMILO ALLEN MD CT CHEST WO 2018-07-28 12:17:00 [place] [address] Patient Name: JILLIAN CARBALLO MR #: [id number] : 1935 Age/Sex: 83/M Req #: [id number] Adm Physician: Ordered by: KATIE KUHN MD Report #: [id number] Location: CT Room/Bed: Procedure: [id number] C T/CT CHEST WO Exam Date: 07/28/18 Exam Time: 1156 REPORT STATUS: Signed EXAM: CT Cristiane st WITHOUT contrast 07/28/2018 11:37 AM INDICATION: [id number] 1156 ABNORMAL CHEST XRAY COMPARISON: Chest radiograph 07/21/2018 TECHNIQUE: Chest was scanned utilizing a multidetector helical scanner from the lung apex through the level of the adrenal glands without administration of IV contrast. Absence of intravenous contrast decreases sensitivity for detection of lymp hadenopathy and vascular pathology. Coronal and sagittal reformations were obt ained. Routine protocol was performed. IV CONTRAST: None COMP LICATIONS: None RADIATION DOSE: Total DLP: 476.8 mGy*cm Estim ated effective dose: (DLP x 0.015 x size factor) mSv CTDIvol has been rev iewed. It is below the limits set by the Radiation Protocol Committee (RPC). FINDINGS: LINES/ TUBES: None. LUNGS AND AIRWAYS: Minimal scarring in both upper lobes. Indeterminate 4 mm triangular-shaped nodule in the right upper lobe on series 3, image 23 may represent an intrapulmonary lymph node. Calcified granuloma in the right upper lobe at the level of the aortic arch li alma correspond to the abnormality seen on chest radiograph. Additional pleura l-based calcified granuloma in the posterior left lower lobe on image 44. Nonc alcified pleural-based adjacent nodule measuring 3 mm in the left lower lobe. Mild bilateral lower lobes and right middle lobe bronchiectasis with per ibronchial wall thickening and surrounding areas of subsegmental atelectasis a nd linear scarring. PLEURA: The pleural spaces are clear. Few scattered sma ll calcified pleural plaques, for example in the anterior right upper lobe on series 3, image 26, left upper lobe on image 37. HEART AND MEDIASTINUM: T he thyroid gland is normal. Few a small right hilar calcified lymph nodes. T he heart is normal in size. There is no pericardial effusion. Diffuse coronar y artery calcifications. The thoracic aorta and pulmonary arteries are unrema rkable. UPPER ABDOMEN: Unremarkable. BONES: Mild multilevel degenerati ve changes of the thoracic spine. SOFT TISSUES: Unremarkable. IMPRESSI ON: Few scattered bilateral calcified granulomas, with the largest in the rig ht upper lobe corresponds to the abnormality seen on chest radiograph. Fe w bilateral small calcified pleural plaques. Bilateral lower lobe bronchiec tasis with areas of subsegmental atelectasis. Overall findings are suggesti ve of sequela of prior rheumatoid disease with an without superimposed asbesto s exposure. Signed by: Dr. Violet Frey M.D. on 07/28/2018 12:30 PM Dictated By: VIOLET FREY MD 1230 Transcribed By: SONDRA on 07/28/18 1 230 COPY TO: KATIE KUHN MD CHEST 2 [id number] 10:51:00 [place] [address] Patient Name: JILLIAN CARBALLO MR #: [id number] : 1935 Age/Sex: 83/M Req #: [id number] Adm Physician: Ordered by: KATIE KUHN MD Report #: [id number] Location: [facility] Room/Bed: Procedure: [id number] D X/CHEST 2 VIEWS Exam Date: 07/21/18 Exam Time: 944 REPORT STATUS: Signed EXAMINATIO N: CHEST 2 VIEWS INDICATION: [id number] ACUTE BRONCH ITIS COMPARISON: None FINDINGS: PA and lateral views TUBES and LINES: None. LUNGS: Lungs are well inflated. There is no evidence of pneumonia or pulmonary edema. Right upper lung field nodular density. P LEURA: No pleural effusion or pneumothorax. HEART AND MEDIASTINUM: The ca rdiomediastinal silhouette is unremarkable. BONES AND SOFT TISSUES: No acute osseous lesion. Soft tissues are unremarkable. UPPER ABDOMEN: No free air under the diaphragm. IMPRESSION: No acute thoracic abnormal ity. Right upper lung field nodular density can be further evaluated with n onurgent chest CT. Signed by: Dr. Akash Vidal MD on 07/21/2018 10:51 AM Dictated By: AKASH VIDAL MD 1051 Transcribed By: SONDRA on 07/21/18 1051 COPY TO: KATIE MUSA MD ABDOMEN-1VIEW (KUB)2018-05-18 10:53:00 [place] [address] Patient Name: JILLIAN CARBALLO MR #: [id number] : 1935 Age/Sex: 82/M Req #: [id number] Adm Physician: Ordered by: HERMILO ALLEN MD Report #: [id number] Location: [facility] Room/Bed: Procedure: [id number] DX/A BDOMEN-1VIEW (KUB) Exam Date: 05/18/18 Exam Time: 10 14 REPORT STATUS: Signed PROCEDU RE: X-RAY ABDOMEN - KUB COMPARISON: 02/20/2018. INDICATIONS: CA LCULUS OF KIDNEY FINDINGS: 3-4 mm calculus projects over the upper p ole of the left renal shadow as previously seen. No additional suspicious lito cifications project over the renal shadows or expected ureteral courses. Ugo l gas pattern is nonobstructive with gas and fecal material throughout the la rge bowel. Multiple pelvic surgical clips likely related to lymph node dis section, unchanged. Regional skeletal structures are intact with mild degener ative disc changes of the lumbar spine. No mass effect or organomegaly. CONCLUSION: Stable 3-4 mm left upper pole renal calculus. Dictated by: Wai Ngo M.D. on 05/18/2018 at 10:53 Electronically approved by: Wai Ngo M.D. on 05/18/2018 at 10:53 Dictated By: WAI VIERA MD 1053 Transcribed By: ANNE-MARIE on 05/18/18 1053 COPY TO: HERMILO ALLEN MD ABDOMEN- 1VIEW (KUB)2018-02-20 21:03:00 [place] [address] Patient Name: JILLIAN CARBALLO MR #: [id number] : 1935 Age/Sex: 82/M Req #: [id number] Adm Physician: Ordered by: HERMILO ALLEN MD Report #: [id number] Location: [facility] Room/Bed: Procedure: DX/ABDOMEN-1VIEW (KUB) Exam D ate: 02/20/18 Exam Time: 1604 REPORT STATUS: Si gned PROCEDURE: X-RAY ABDOMEN - KUB COMPARISON: Patients Medical Ce nter, DX, ABDOMEN-1VIEW (KUB), 11/24/2017, 10:42. INDICATIONS: KIDNEY STONE FINDINGS: Nonobstructive bowel gas pattern with moderate amoun t of retained stool. Stable 4 mm radiopaque density projecting in the super ior aspect of the left renal shadow. Previously described punctate radiopaq ue density projecting over the mid to inferior aspect of the left renal shado w is not seen in current exam. No other calcifications project over the rig ht renal shadow or expected course of ureters or bladder. No acute bony abn ormalities. Multiple metallic clips project in the pelvis. CONCLUSIO N: Stable 4 mm non-obstructing calculus in the left kidney. Previously de scribed punctate radiopaque density projecting in the mid to inferior left ki dney is not seen in current exam. Lux Truong M.D. Dictated by : Lux Truong M.D. on 02/20/2018 at 21:03 Electronically approved by: Lux Truong M.D. on 02/20/2018 at 21:03 Dictated By : LUX TRUONG MD Transcribed By: ANNE-MARIE on 02/20/182102 COPY TO: HERMILO ALLEN MD CT ABDOMEN/PELVIS [id number] 17:37:00 [place] [address] Patient Name: JILLIAN CARBALLO MR #: [id number] : 1935 Age/Sex: 82/M Req #: [id number] Adm Physician: Ordered by: KATIE KUHN MD Report #: [id number] Location: CT Room/Bed: Procedure: [id number] CT/CT ABDOMEN/PELVIS EPIFANIO Alcidesjoe m Date: 12/28/17 Exam Time: 2 REPORT STATUS: Signed PROCEDURE: CT ABDOMEN AND PELVIS WITHOUT CONTRAST TECHNIQUE: The abdomen and pelvis were scanned utilizing a multidetector helical scanner from the diaphragm to the lesser trochanter after the oral administration of Gastroview. No IV contrast was administered. Coronal and sagittal multipl emile reformations were obtained. DLP: 592.42 mGy-cm COMPARISON: Abdomina l CT 09/19/1999 INDICATIONS: INTESTINAL ADHESION FINDINGS: AB SENCE OF INTRAVENOUS CONTRAST DECREASES SENSITIVITY FOR DETECTION OF FOCAL LE SIONS AND VASCULAR PATHOLOGY. LOWER THORAX: Right middle and lower lobe at electasis or scarring. HEPATOBILIARY: No focal hepatic lesions. No biliary du ctal dilatation. SPLEEN: No splenomegaly. PANCREAS: No focal masses or ducta l dilatation. ADRENALS: No adrenal nodules. KIDNEYS/URETERS: No hydronep hrosis or solid mass lesions. Fluid attenuating 1.2 cm lesion in the superior pole of the right kidney, likely a cyst. Nonobstructing left renal 0.5 cm ca lculus in the midpole. PELVIC ORGANS/BLADDER: Prostatectomy. No focal blad mir wall thickening. PERITONEUM / RETROPERITONEUM: No free air. Small amou nt of free fluid in the pelvis. LYMPH NODES: No lymphadenopathy. Prior pelv ic lymph node dissection. VESSELS: Mild scattered atherosclerotic calcificatio ns. GI TRACT: No distention or wall thickening. Small hiatal hernia. Co lonic diverticula without evidence of diverticulitis. Partial right hemicolec manolo with ileocolonic anastomosis. Multiple small bowel loops are distended w ith contrast with gradual tapering towards the ileum. Multiple ventral hernia s with one wide mouth hernia containing a portion of the anterior small bowel wall. BONES AND SOFT TISSUES: Midline laparotomy scar. Multiple ventral hernias, mostly fat containing with one Kaufman's hernia without evidence of strangulation or obstruction. Degenerative change of the spine. IMPRESSION: 1. No evidence of small bowel obstruction. 2. Left nephrolithia sis. 3. Colonic diverticulosis. 4. Status post partial right hemicolectomy , prostatectomy, and pelvic leslie dissection. 5. Multiple ventral hernias, mostly fat containing. Right ventral Kaufman's hernia without strangulation or obstruction. 6. Nonspecific small amount of free fluid in the pelvis. 1. Dictated by: Zac Shore M.D. on 12/28/2017 at 17:37 [facility] approved by: Zac Shore M.D. on 12/28/2017 at 17:37 Dictated By: ZAC SHORE MD 36 COPY TO: AVIS KUHN MD ABDOMEN-1VIEW (KUB) [place] [address] Patient Name: JILLIAN CARBALLO MR #: [id number] : 1935 Age/Sex: 82/M Req #: [id number] Adm Physician: Ordered by: HERMILO ALLEN MD Report #: [id number] Location: [facility] Room/Bed: Procedure: [id number] DX/ABDOMEN-1VIEW (KUB) Exam D ate: 11/24/17 Exam Time: 1042 REPORT STATUS: Si gned PROCEDURE: X-RAY ABDOMEN - KUB COMPARISON: Patients Medical Ce nter, DX, ABDOMEN-1VIEW (KUB), 08/19/2017, 9:39. INDICATIONS: RENAL ST ONES, CHRONIC FINDINGS: Nonobstructive bowel gas pattern. Punctate radiopaque density projecting in the mid to inferior left renal shadow. Sta ble 4 mm radiopaque density projecting in the superior aspect of the left tom al shadow No calcifications project over the right renal shadow or expected course of ureters. Multiple metallic clips are again seen in the pelvis. No acute bony abnormalities. No lytic or blastic lesions. Stable punctate radiop aque density projecting over the 11th rib outside the renal shadow and may re present vascular calcification.. CONCLUSION: Stable 4 mm radio obstru cting calculus density projecting in the superior aspect of the left renal sh adow. Punctate radiopaque density projecting in the mid to inferior left r enal shadow likely represents a nonobstructing calculus. Lux henry M.D. Dictated by: Lux Truong M.D. on 11/24/2017 at 19:14 E lectronically approved by: Lux Truong M.D. on 11/24/2017 at 19:14 Dictated By: LUX TRUONG MD 13 Transcribed By: ANNE-MARIE on 11/24/171913 COPY TO: HERMILO ALLEN MD ABDOMEN-1VIEW (KUB) [place] [address] Patient Name: JILLIAN CARBALLO MR #: [id number] : 1935 Age/Sex: 82/M Req #: [id number] Adm Physician: Ordered by: HERMILO ALLEN MD Report #: [id number] Location: [facility] Room/Bed: Procedure: [id number] DX/ABDOMEN-1VIEW (KUB) Exam D ate: 08/19/17 Exam Time: 0930 REPORT STATUS: Si gned PROCEDURE: ABDOMEN-1VIEW (KUB) TECHNIQUE: Supine AP abdomen totali ng 2 radiographs INDICATION: Kidney stones COMPARISON: [facility], DX, ABDOMEN-1VIEW (KUB), 02/11/2017, 9:23. [facility], D X, ABDOMEN-1VIEW (KUB), 05/12/2017, 10:56. FINDINGS: See conclusion. CONCLUSION: 1. Stable left upper pole 4 mm stone. No evidence of new stones. 2. Normal bowel gas pattern. 3. Intact skeleton. Multiple pelvic s urgical clips suggesting lymph node dissection. Dictated by: Huan Radford M.D. on 08/19/2017 at 10:01 Electronically approved by: Mi Radford M.D. on 08/19/2017 at 10:01 Dictated By: MI RADFORD MD 1001 Transcribed By: ANNE-MARIE on 08/19/17 1001 COPY TO: HERMILO ALLEN MD ABDOMEN-1VIEW (KUB) [place] [address] Patient Name: JILLIAN CARBALLO MR #: [id number] : 1935 Age/Sex: 81/M Req #: [id number] Adm Physician: Ordered by: HERMILO ALLEN MD Report #: [id number] Location: [facility] Room/Bed: Procedure: [id number] DX/ABDOMEN-1VIEW (KUB) Exam D ate: 05/12/17 Exam Time: 1058 REPORT STATUS: Si gned PROCEDURE: X-RAY ABDOMEN - KUB COMPARISON: Abdomen x-ray ; CT abdomen/pelvis 09/18/16 INDICATIONS: HISTORY OF KIDNEY CALCULUS FINDINGS: BOWEL GAS PATTERN: Non-specific bowel gas pattern. No di lated bowel loops. [id number]-[id number] amount of stool in the large bowel. CALCIFICATIONS: Stool and air obscure the right renal shadow. A suspected calculus over the left renal shadow on previous exam is poorly visualized on this study. Two potential calculi at the upper pole of the left kidney may co rrespond to splenic artery calcifications identified on CT. The larger measur es 5 mm. The smaller measures 4 mm. No calcifications over the renal shad ows or along the expected course of the ureters. OTHER: Multiple surg ical clips in the pelvis are re-demonstrated. No organomegaly. BONES: Unremarkable for age. CONCLUSION: 1. No conclusive evidence of intrarenal calculi. No evidence of ureteral calculi. 2. CT is a more sensitive modality to identify intrarenal calculi. Dictated by: Zoraida Koroma M.D. on 05/12/2017 at 11:35 Electronically approved by: Zoraida Koroma M.D. on 05/12/2017 at 11:35 Dictated By: Yusuf KOROMA MD 1135 Transcribed By: ANNE-MARIE on 05/12/17 1135 COPY TO: HERMILO ALLEN MD
[2020-04-08] MEDS ORDERED: AZITHROMYCIN 500MG/NS 250 ML 250 ML IV STA (21:27)
[2020-04-08] MEDS ORDERED: DEXAMETHASONE SOD PHOS 10 MG/1 ML VIAL IV ONE (21:30)
--- NOTE | 2020-04-08 21:35 | Diagnostic Imaging Report ---
EXAMINATION: CHEST SINGLE (PORTABLE) INDICATION: Cough. COMPARISON: Multiple prior chest radiograph including most recent on 01/22/2019. Chest CT on 03/13/2020. FINDINGS: TUBES and LINES: None. LUNGS: Normal lung volumes. Lungs are clear. No consolidations. There is bibasilar atelectasis. Right upper lobe granuloma. PLEURA: No pleural effusion or pneumothorax. HEART AND MEDIASTINUM: The cardiomediastinal silhouette is unremarkable. BONES AND SOFT TISSUES: No acute osseous lesion. Soft tissues are unremarkable. UPPER ABDOMEN: No free air under the diaphragm. IMPRESSION: No acute thoracic radiographic abnormality. Signed by: Jeffrey Mayer MD on 04/08/2020 9:32 PM
--- NOTE | 2020-04-08 21:45 | NUR ---
Patient o2 levels dropped to 93% on room air. Patient placed on 2L NC. Patient continues to deny shortness of breath.
[2020-04-08] MEDS ORDERED: ONDANSETRON HCL INJ 2MG/ML 2ML 2 MG/ML VIAL IV STA (23:25)
[2020-04-08] MEDS ORDERED: ACETAMINOPHEN 325 MG TAB PO PRN (23:30)
[2020-04-09] VITALS (12 sets, daily range): BP systolic 104–159; BP diastolic 71–81
[2020-04-09] MEDS ORDERED: vitamin d PO
[2020-04-09] MEDS ORDERED: BENICAR20 MG PO
[2020-04-09] MEDS ORDERED: DIAZEPAM5 MG PO
--- OUTSIDE RECORDS SUMMARY | 2020-04-09 01:03 | XMS REPORT | Continuity of Care Document ---
Author Author [facility] t Organization [facility] Address [address] [place] [address] Phone Unavailable Care Team Providers Care Merchandise Clerk Name Role Phone KATIE KUHN MD PCP JASON TOMPKINS Attphys Unavailable COLOMER, Magui RAMSAY Attphys Unavailable HERMILO ALLEN Attphys Unavailable Magui DUGAN Attphys Unavailable CONI TOMPKINS Attphys Unavailable KATIE KUHN Attphys Unavailable CONI TOMPKINS Admphys Unavailable Payers Payer Name Policy Type Policy Number Effective Date Expiration Date Abimael tracy Miscellaneous Indemnity [id number] 2016 00:00:00 [facility] Medicare A & B [id number] 2002 00:00:00 [facility] Problems Condition Name Condition Details Condition Category Status Onset Date Resolution Date Last Treatment Date Treating Clinician Comments Source Acute renal failure Acute renal failure Problem Active [facility] Incarcerated hernia Incarcerated hernia Problem Active [facility] Leukocytosis Leukocytosis Problem Active [facility] Small bowel obstruction SBO (small bowel obstruction) Problem Active [facility] Urinary tract infection UTI (urinary tract infection) Problem Active [facility] Calculus of ureter Ureterolithiasis Problem Active [facility] Allergies, Adverse Reactions, Alerts This patient has no known allergies or adverse reactions. Medications Ordered Medication Name Filled Medication Name Start Date Stop Da te Current Medication? Ordering Clinician Indication Dosage Frequency Signature (SIG) Comments Components Source Aspirin 81 Mg Tab.chew Aspirin 81 Mg Tab.chew Yes 81 Daily [facility] Atorvastatin Calcium 20 Mg Tablet Atorvastatin Calcium 20 Mg Tablet Yes 20 Bedtime [facility] Hydrocodone Bit/Acetaminophen ([place] 7.5-325 Tablet) 1 Each Tablet Hydrocodone Bit/Acetaminophen ([place] 7.5-325 Tablet) 1 Each Tablet Yes 1 Every 4 Hours as needed for Pain [facility] Levocetirizine Dihydrochloride 5 Mg Tablet Levocetiriz ine Dihydrochloride 5 Mg Tablet Yes 5 Daily [facility] Montelukast Sodium 10 Mg Tablet Montelukast Sodium 10 Mg Tablet Yes 10 Bedtime [facility] Olmesartan/Hydrochlorothiazide (Benicar Hct 40-12.5 Mg Tablet) 1 Each Tablet Olmesartan/Hydrochlorothiazide (Benicar Hct 40-12.5 Mg Tablet) 1 Each Tablet Yes Daily [facility] Ascorbic Acid (Vitamin C) 1,000 Mg Tablet.er, 1000 Mg Oral Ascorbic Acid (Vitamin C) 1,000 Mg Tablet.er, 1000 Mg Oral 2019-01-22 00:00:00 No 1000 Daily [facility] Meloxicam 7.5 Mg Tablet, 7.5 Mg Oral Meloxicam 7.5 Mg Tablet, 7. 5 Mg Oral 2019-01-22 00:00:00 No 7.5 Daily [facility] Ascorbic Acid (Vitamin C) 1,000 Mg Tab.chew, 1000 Mg O ral Ascorbic Acid (Vitamin C) 1,000 Mg Tab.chew, 1000 Mg Oral 2016-10-11 00:00:00 No 1000 Daily [facility] Penicillin V Potassium (Pencillin V Potassium*) 250 Mg Tab, 500 Mg Oral Penicillin V Potassium (Pencillin V Potassium*) 250 Mg Tab, 500 Mg Oral 2016-10-11 00:00:00 No 500 Three Times A Day [facility] Atorvastatin Calcium 20 Mg Tablet, 20 Mg Oral Atorvast atin Calcium 20 Mg Tablet, 20 Mg Oral 2015-04-17 00:00:00 No 20 Daily [facility] Procedures Procedure Date / Time Performed Performing Clinician [facility] debbie Repair of hernia of anterior abdominal wall 2019-01-29 00:00 :00 ULISES DUGAN [facility] X-ray of chest, two views 2019-01-22 00:00:00 ULISES DUGAN [facility] Computed tomography of chest without contrast 2018-12-21 00: 00:00 DEVENDRA PRUETT [facility] CT of abdomen and pelvis without contrast 2018-12-07 00:00:0 0 BARBARA LUNA [facility] Computed tomography of chest without contrast 2018-07-28 00: 00:00 [facility] X-ray of chest, two views 2018-07-21 00:00:00 [facility] Encounters Start Date/Time End Date/Time Encounter Type Admission Type [facility] Care Department Encounter ID Source 2019-01-29 14:17:00 2019-02-02 17:09:00 Discharged Inpatient 3 ULISES DUGAN [facility] [id number] [facility] 2018-12-21 07:30:00 2018-12-21 07:30:00 Registered Clinic 3 DEVENDRA PRUETT [facility] [id number] [facility] 2018-12-07 01:18:00 2018-12-10 13:20:00 Discharged Inpatient 1 CONI TOMPKINS [facility] [id number] [facility] 2018-08-24 09:30:00 2018-08-24 09:30:00 Registered Clinic [facility] [id number] [facility] 2018-08-18 10:35:00 2018-08-18 10:35:00 Registered Clinic 3 HERMILO ALLEN [facility] [id number] [facility] 2018-07-28 11:31:00 2018-07-28 11:31:00 [facility] [id number] [facility] 2018-07-21 09:32:00 2018-07-21 09:32:00 Registered Clinic 3 [facility] [id number] [facility] 2018-05-18 09:56:00 2018-05-18 09:56:00 Registered Clinic 3 HERMILO ALLEN [facility] [id number] [facility] 2018-02-20 15:54:00 2018-02-20 15:54:00 Registered Clinic 3 HERMILO ALLEN [facility] [id number] [facility] Results Test Description Test Time Test Comments Results Result Comments Source CHEST SINGLE (PORTABLE) 2020-04-08 21:30:00 [place] [address] Patient Name: JILLIAN CARBALLO MR #: [id number] : 1935 Age/Sex: 84/M Req #: [id number] Adm Physician: Ordered by: JASON TOMPKINS DO Report #: [id number] Location: ER Room/Bed: Procedure: [id number] DX/CHEST SINGLE (PORTABLE) Exam Date: 04/08/20 Exam Time: 2049 REPORT STATUS: Signed EXAMINATION: CHEST SINGLE (PORTABLE) INDICATION: Cough. COMPARISON: Multiple prior chest radiograph including most recent on 01/22/2019. Chest CT on 03/13/2020. FINDINGS: TUBES and LINES: None. LUNGS: Normal lung volumes. L ungs are clear. No consolidations. There is bibasilar atelectasis. Right upper lobe granuloma. PLEURA: No pleural effusion or pneumothorax. HEART AND MEDIASTINUM: The cardiomediastinal silhouette is unremarkable. BONES AND SOFT TISSUES: No acute osseous lesion. Soft tissues are unremarkable. UPPER ABDOMEN: No free air under the diaphragm. IMPRESSION: No acute thoracic radiographic abnormality. Signed by: Ayaka Joel MD on 04/08/2020 9:32 PM Dictated By: AYAKA JOEL MD 31 Transcribed By: SONDRA on 04/08/202131 COPY TO: JASON TOMPKINS CT CHEST WO 2020-03-13 16:19:00 [place] [address] Patient Name: JILLIAN CARBALLO MR #: [id number] : 1935 Age/Sex: 84/M Req #: [id number] Adm Physician: Ordered by: DEVENDRA PRUETT MD Report #: [id number] Location: CT Room/Bed: Procedure: [id number] CT/CT CHEST WO Exam Date: 03/13/20 Exam [...] 03/13/201626 COPY TO: DEVENDRA PRUETT MD ABDOMEN-1VIEW (KUB) 2020-02-14 10:02:00 [place] [address] Patient Name: JILLIAN CARBALLO MR #: [id number] : 1935 Age/Sex: 84/M Req #: [id number] Adm Physician: Ordered by: HERMILO ALLEN MD Report #: [id number] Location: [facility] Room/Bed: Procedure: [id number] DX/ABDOMEN-1VIEW (KUB) Exam Date: 02/14/20 Exam Time: 09 REPORT STATUS: Signed Exam: KUB - 2 [...] HERMILO ALLEN MD ABDOMEN-1VIEW (KUB) 2019-08-15 13:02:00 [place] [address] Patient Name: JILLIAN CARBALLO MR #: [id number] : 1935 Age/Sex: 84/M Req #: [id number] Adm Physician: Ordered by: HERMILO ALLEN MD Report #: [id number] Location: [facility] Room/Bed: Procedure: [id number] DX/ABDOMEN-1VIEW (KUB) Exam Date: 08/15/19 Exam Time: [...] HERMILO ALLEN MD ABDOMEN-1VIEW (KUB) 2019-02-22 12:55:00 [place] [address] Patient Name: JILLIAN CARBALLO MR #: [id number] : 1935 Age/Sex: 83/M Req #: [id number] Adm Physician: Ordered by: HERMILO ALLEN MD Report #: [id number] Location: [facility] Room/Bed: Procedure: [id number] DX/ABDOMEN-1VIEW (KUB) Exam Date: Exam Time: REPORT [...] Level (test code = 2951-2) 139 136-145 [facility]Potassium Qewdo3534-75-06 05:51:00* Test Item Value Reference Range Interpretation Comments Potassium Level (test code = 2823-3) 4.2 3.5-5.1 [facility] HospitalChloride Utnue9594-09-78 05:51:00* Test Item Value Reference Range Interpretation Comments Chloride Level (test code = 2075-0) 106 98-107 [facility] HospitalCarbon Dioxide Lefpp3596-09-58 05:51:00* Test Item Value Reference Range Interpretation Comments Carbon Dioxide Level (test code = 2028-9) 24 - [facility] HospitalAnion Czy6151-04-19 05:51:00* Test Item Value Reference Range Interpretation Comments Anion Gap (test code = 10699-1) 13.2 8-16 [facility] HospitalBlood Urea Gwwazmrj8388-11-31 05:51:00* Test Item Value Reference Range Interpretation Comments Blood Urea Nitrogen (test code = 3094-0) 12 7-26 [facility] HospitalCreatinine2019-07-31 05:51:00* Test Item Value Reference Range Interpretation Comments Creatinine (test code = 2160-0) 0.82 0.72-1.25 [facility] HospitalBUN/Creatinine Owitx3577-12-35 05:51:00* Test Item Value Reference Range Interpretation Comments BUN/Creatinine Ratio (test code = 3097-3) 15 6-25 [facility] HospitalEstimat Glomerular Filtration Rate 2019-01-31 05:51:00* Test Item Value Reference Range Interpretation Comments Estimat Glomerular Filtration Rate (test code = 454284230) > 60 >60 Ranges were taken from the National Kidney Disease Education Program and the [facility] Kid[facility] Foundation literature.Reference ranges:60 or greater: Bikzvb16-28 ( for 3 consecutive months): Chronic kidney disease 15 or less: Kidney failureHouston Methodist Clear Lake HospitalGlucose Vgmko1275-71-09 05:51:00* Test Item Value Reference Range Interpretation Comments Glucose Level (test code = UOD2020) 142 74-118 H [facility] HospitalCalcium Tqnrv1047-17-53 05:51:00* Test Item Value Reference Range Interpretation Comments Calcium Level (test code = 61148-9) 8.4 8.4-10.2 [facility] HospitalTotal Fttradrnh9961-07-33 05:51:00* Test Item Value Reference Range Interpretation Comments Total Bilirubin (test code = 1975-2) 1.3 0.2-1.2 H [facility] HospitalAspartate Amino Transf (AST/SGOT) 2019-01-31 05:51:00* Test Item Value Reference Range Interpretation Comments Aspartate Amino Transf (AST/SGOT) (test code = Aspartate Amino Transf (AST/SGOT)) 18 5-34 [facility] HospitalAlanine Aminotransferase (ALT/SGPT) 2019-01-31 05:51:00* Test Item Value Reference Range Interpretation Comments Alanine Aminotransferase (ALT/SGPT) (test code = 1742-6) 10 0-55 [facility] Pmwwpai3992-37-25 05:51:00* Test Item Value Reference Range Interpretation Comments Total Protein (test code = 2885-2) 5.5 6.5-8.1 L [facility] HospitalAlbumin2019-07-31 05:51:00* Test Item Value Reference Range Interpretation Comments Albumin (test code = 1751-7) 3.0 3.5-5.0 L [facility] HospitalGlobulin2019-07-31 05:51:00* Test Item Value Reference Range Interpretation Comments Globulin (test code = 27352-6) 2.5 2.3-3.5 [facility] HospitalAlbumin/Globulin Anisr2520-75-78 05:51:00 * Test Item Value Reference Range Interpretation Comments Albumin/Globulin Ratio (test code = 1759-0) 1.2 0.8-2.0 [facility] HospitalAlkaline Jlgyjryeanj7632-46-36 05:51:00* Test Item Value Reference Range Interpretation Comments Alkaline Phosphatase (test code = 6768-6) 53 40-150 [facility] HospitalWhite Blood Eernr9253-73-19 05:28:00* Test Item Value Reference Range Interpretation Comments White Blood Count (test code = 6690-2) 10.72 4.8-10.8 [facility] HospitalRed Blood Hqppa3497-59-77 05:28:00* Test Item Value Reference Range Interpretation Comments Red Blood Count (test code = 789-8) 3.67 4.3-5.7 L [facility] HospitalHemoglobin2019-07-31 05:28:00* Test Item Value Reference Range Interpretation Comments Hemoglobin (test code = 26385-7) 11.0 14.0-18.0 L [facility] HospitalHematocrit2019-07-31 05:28:00* Test Item Value Reference Range Interpretation Comments Hematocrit (test code = 4544-3) 33.4 38.2-49.6 L [facility] HospitalMean Corpuscular Mwcxjb8643-86-05 05:28:00* Test Item Value Reference Range Interpretation Comments Mean Corpuscular Volume (test code = 787-2) 91.0 81-99 [facility] HospitalMean Corpuscular Lzzswelwgt3291-81-44 05:28:00* Test Item Value Reference Range Interpretation Comments Mean Corpuscular Hemoglobin (test code = 785-6) 30.0 28-32 [facility] HospitalMean Corpuscular Hemoglobin Concent 2019-01-31 05:28:00* Test Item Value Reference Range Interpretation Comments Mean Corpuscular Hemoglobin Concent (test code = 786-4) 32.9 31-35 [facility] HospitalRed Cell Distribution Livni8126-37-92 05:28:00* Test Item Value Reference Range Interpretation Comments Red Cell Distribution Width (test code = 63077-7) 13.2 11.7 -14.4 [facility] HospitalPlatelet Exiaw9005-85-56 05:28:00* Test Item Value Reference Range Interpretation Comments Platelet Count (test code = 777-3) 200 140-360 [facility] HospitalNeutrophils (%) (Auto)2019-01-31 05:28:00 * Test Item Value Reference Range Interpretation Comments Neutrophils (%) (Auto) (test code = 86225-2) 75.9 38.7-80.0 [facility] HospitalLymphocytes (%) (Auto)2019-01-31 05:28:00 * Test Item Value Reference Range Interpretation Comments Lymphocytes (%) (Auto) (test code = 736-9) 12.2 18.0-39.1 L [facility] HospitalMonocytes (%) (Auto)2019-01-31 05:28:00* Test Item Value Reference Range Interpretation Comments Monocytes (%) (Auto) (test code = 5905-5) 9.2 4.4-11.3 [facility] HospitalEosinophils (%) (Auto)2019-01-31 05:28:00 * Test Item Value Reference Range Interpretation Comments Eosinophils (%) (Auto) (test code = 713-8) 2.2 0.0-6.0 [facility] HospitalBasophils (%) (Auto)2019-01-31 05:28:00* Test Item Value Reference Range Interpretation Comments Basophils (%) (Auto) (test code = 706-2) 0.2 0.0-1.0 [facility] HospitalIM GRANULOCYTES %2019-01-31 05:28:00* Test Item Value Reference Range Interpretation Comments IM GRANULOCYTES % (test code = IM GRANULOCYTES %) 0.3 0.0- 1.0 [facility] HospitalNeutrophils # (Auto)2019-01-31 05:28:00* Test Item Value Reference Range Interpretation Comments Neutrophils # (Auto) (test code = 751-8) 8.1 2.1-6.9 H [facility] HospitalLymphocytes # (Auto)2019-01-31 05:28:00* Test Item Value Reference Range Interpretation Comments Lymphocytes # (Auto) (test code = 09165-1) 1.3 1.0-3.2 [facility] HospitalMonocytes # (Auto)2019-01-31 05:28:00* Test Item Value Reference Range Interpretation Comments Monocytes # (Auto) (test code = 742-7) 1.0 0.2-0.8 H [facility] HospitalEosinophils # (Auto)2019-01-31 05:28:00* Test Item Value Reference Range Interpretation Comments Eosinophils # (Auto) (test code = 711-2) 0.2 0.0-0.4 [facility] HospitalBasophils # (Auto)2019-01-31 05:28:00* Test Item Value Reference Range Interpretation Comments Basophils # (Auto) (test code = 704-7) 0.0 0.0-0.1 [facility] HospitalAbsolute Immature Granulocyte (auto 2019-01-31 05:28:00* Test Item Value Reference Range Interpretation Comments Absolute Immature Granulocyte (auto (jojo t code = Absolute Immature Granulocyte (auto) 0.03 0-0.1 [facility] HospitalCHEST 2 RZLVP2446-32-03 16:48:00 [facility] [address] [place] [address] Patient Name: JILLIAN CARBALLO MR #: [id number] : 1935 Age/Sex: 83/M Req #: [id number] Adm Physician: Ordered by: ULISES DUGAN MD Report #: [id number] Location: OR Room/Bed: Procedure: [id number] D X/CHEST 2 VIEWS Exam Date: 01/22/19 [...] T O: ULISES DUGAN MD CT CHEST QO6155-15-16 07:59:00 [place] [address] Patient Name: JILLIAN CARBALLO MR #: [id number] : 1935 Age/Sex: 83/M Req #: [id number] Adm Physician: Ordered by: DEVENDRA PRUETT MD Report #: [id number] Location: CT Room/Bed: Procedure: [id number] C T/CT CHEST WO Exam Date: 12/21/18 [...] he thoracic aorta, great vessel origins, and [place] coronary arteries. No ecta nyla or aneurysmal [...] chest without contrast in one year is sesar balderrama to document stability. Atherosclerotic vascular disease. Signed by: Dr. Wai Ngo M.D. on 12/21/2018 8:11 AM Dictated By: WAI VIERA MD 0 Transcribed By: SONDRA on 12/21/18810 COPY TO: DEVENDRA PRUETT MD Bedside Exlcavx1791-15-31 11:32:00* Test Item Value Reference Range Interpretation Comments Bedside Glucose (test code = 27402-1) 144 70-120 H Meter ID: [id number] [facility] Glucose 2018-12-10 11:32:00* Test Item Value Reference Range Interpretation Comments Bedside Glucose (test code = 61958-5) 144 70-120 H Meter ID: [id number] [facility] HospitalABDOMEN ACUTE SERIES W/PA KHA9388-00-39 06:16:00 [place] [address] Patient Name: JILLIAN CARBALLO MR #: [id number] : 1935 Age/Sex: 83/M Req #: [id number] Adm Physician: CONI TOMPKINS MD Ordered by: ULISES DUGAN MD Report #: [id number] Location: MED/SURG2 Room/Bed: [facility] Procedure: [id number] D X/ABDOMEN ACUTE SERIES W/PA CXR Exam Date: 12/08/18 Exam Time: 0600 REPORT STATUS: Sign ed EXAM: Abdomen and chest, 4 radiographs INDICATION: sbo 07 0600 COMPARISON: Abdominal x-ray dated 12/07/2018, chest CT [...] 12/08/18620 COPY TO: ULISES DUGAN MD Sodium Rvpbe5728-08-51 05:35:00* Test Item Value Reference Range Interpretation Comments Sodium Level (test code = 2951-2) 139 136-145 [facility] HospitalPotassium Nfmow6553-00-48 05:35:00* Test Item Value Reference Range Interpretation Comments Potassium Level (test code = 2823-3) 4.1 3.5-5.1 [facility] HospitalChloride Fsbst8065-15-20 05:35:00* Test Item Value Reference Range Interpretation Comments Chloride Level (test code = 2075-0) 107 98-107 [facility] HospitalCarbon Dioxide Zaeiw7279-28-35 05:35:00* Test Item Value Reference Range Interpretation Comments Carbon Dioxide Level (test code = 2028-9) 27 22-29 [facility] HospitalAnion Kwd6230-12-05 05:35:00* Test Item Value Reference Range Interpretation Comments Anion Gap (test code = 19659-9) 9.1 8-16 [facility] HospitalBlood Urea Unrdkiii9405-45-37 05:35:00* Test Item Value Reference Range Interpretation Comments Blood Urea Nitrogen (test code = 3094-0) 19 7-26 [facility] HospitalCreatinine2019-06-07 05:35:00* Test Item Value Reference Range Interpretation Comments Creatinine (test code = 2160-0) 0.93 0.72-1.25 [facility] HospitalBUN/Creatinine Ottcl6347-25-16 05:35:00* Test Item Value Reference Range Interpretation Comments BUN/Creatinine Ratio (test code = 3097-3) 20 6-25 [facility] HospitalEstimat Glomerular Filtration Rate 2018-12-08 05:35:00* Test Item Value Reference Range Interpretation Comments Estimat Glomerular Filtration Rate (test code = 895370500) > 60 >60 Ranges were taken from the National Kidney Disease Education Program and the [facility] literature.Reference ranges:60 or greater: Nudmqr42-89 ( for 3 consecutive months): Chronic kidney disease 15 or less: Kidney failureCH[facility] St[facility] HospitalGlucose Jvmxe3973-06-70 05:35:00* Test Item Value Reference Range Interpretation Comments Glucose Level (test code = AOC8092) 132 74-118 H [facility] HospitalCalcium Xohbn8766-67-23 05:35:00* Test Item Value Reference Range Interpretation Comments Calcium Level (test code = 58900-2) 8.7 8.4-10.2 [facility] HospitalTotal Bwyskoztr8097-21-47 05:35:00* Test Item Value Reference Range Interpretation Comments Total Bilirubin (test code = 1975-2) 2.7 0.2-1.2 H [facility] HospitalAspartate Amino Transf (AST/SGOT) 2018-12-08 05:35:00* Test Item Value Reference Range Interpretation Comments Aspartate Amino Transf (AST/SGOT) (test code = Aspartate Amino Transf (AST/SGOT)) 15 5-34 [facility] HospitalAlanine Aminotransferase (ALT/SGPT) 2018-12-08 05:35:00* Test Item Value Reference Range Interpretation Comments Alanine Aminotransferase (ALT/SGPT) (test code = 1742-6) 10 0-55 [facility] HospitalTotal Wgxhcew6497-10-69 05:35:00* Test Item Value Reference Range Interpretation Comments Total Protein (test code = 2885-2) 5.2 6.5-8.1 L [facility] HospitalAlbumin2019-06-07 05:35:00* Test Item Value Reference Range Interpretation Comments Albumin (test code = 1751-7) 2.8 3.5-5.0 L [facility] HospitalGlobulin2019-06-07 05:35:00* Test Item Value Reference Range Interpretation Comments Globulin (test code = 11666-1) 2.4 2.3-3.5 [facility] HospitalAlbumin/Globulin Sjipq0629-96-79 05:35:00 * Test Item Value Reference Range Interpretation Comments Albumin/Globulin Ratio (test code = 1759-0) 1.2 0.8-2.0 [facility] HospitalAlkaline Oqicnvdvomf9432-08-10 05:35:00* Test Item Value Reference Range Interpretation Comments Alkaline Phosphatase (test code = 6768-6) 42 40-150 [facility] HospitalWhite Blood Ablxj2976-97-58 05:01:00* Test Item Value Reference Range Interpretation Comments White Blood Count (test code = 6690-2) 12.67 4.8-10.8 H [facility] HospitalRed Blood Outqq2106-71-17 05:01:00* Test Item Value Reference Range Interpretation Comments Red Blood Count (test code = 789-8) 4.37 4.3-5.7 [facility] HospitalHemoglobin2019-06-07 05:01:00* Test Item Value Reference Range Interpretation Comments Hemoglobin (test code = 88970-3) 13.2 14.0-18.0 L [facility] HospitalHematocrit2019-06-07 05:01:00* Test Item Value Reference Range Interpretation Comments Hematocrit (test code = 4544-3) 38.9 38.2-49.6 [facility] HospitalMean Corpuscular Ejiugc6088-93-71 05:01:00* Test Item Value Reference Range Interpretation Comments Mean Corpuscular Volume (test code = 787-2) 89.0 81-99 [facility] HospitalMean Corpuscular Myuklhldoi7661-92-34 05:01:00* Test Item Value Reference Range Interpretation Comments Mean Corpuscular Hemoglobin (test code = 785-6) 30.2 28-32 [facility] HospitalMean Corpuscular Hemoglobin Concent 2018-12-08 05:01:00* Test Item Value Reference Range Interpretation Comments Mean Corpuscular Hemoglobin Concent (test code = 786-4) 33.9 31-35 [facility] HospitalRed Cell Distribution Vrnny7026-53-78 05:01:00* Test Item Value Reference Range Interpretation Comments Red Cell Distribution Width (test code = 69346-5) 13.1 11.7 -14.4 [facility] HospitalPlatelet Skyvw9896-32-95 05:01:00* Test Item Value Reference Range Interpretation Comments Platelet Count (test code = 777-3) 173 140-360 [facility] HospitalNeutrophils (%) (Auto)2018-12-08 05:01:00 * Test Item Value Reference Range Interpretation Comments Neutrophils (%) (Auto) (test code = 47614-2) 73.7 38.7-80.0 [facility] HospitalLymphocytes (%) (Auto)2018-12-08 05:01:00 * Test Item Value Reference Range Interpretation Comments Lymphocytes (%) (Auto) (test code = 736-9) 11.2 18.0-39.1 L [facility]Monocytes (%) (Auto)2018-12-08 05:01:00* Test Item Value Reference Range Interpretation Comments Monocytes (%) (Auto) (test code = 5905-5) 9.6 4.4-11.3 [facility]Eosinophils (%) (Auto)2018-12-08 05:01:00 * Test Item Value Reference Range Interpretation Comments Eosinophils (%) (Auto) (test code = 713-8) 4.7 0.0-6.0 [facility]Basophils (%) (Auto)2018-12-08 05:01:00* Test Item Value Reference Range Interpretation Comments Basophils (%) (Auto) (test code = 706-2) 0.2 0.0-1.0 [facility] HospitalIM GRANULOCYTES %2018-12-08 05:01:00* Test Item Value Reference Range Interpretation Comments IM GRANULOCYTES % (test code = IM GRANULOCYTES %) 0.6 0.0- 1.0 [facility] HospitalNeutrophils # (Auto)2018-12-08 05:01:00* Test Item Value Reference Range Interpretation Comments Neutrophils # (Auto) (test code = 751-8) 9.4 2.1-6.9 H [facility] HospitalLymphocytes # (Auto)2018-12-08 05:01:00* Test Item Value Reference Range Interpretation Comments Lymphocytes # (Auto) (test code = 19520-9) 1.4 1.0-3.2 [facility] HospitalMonocytes # (Auto)2018-12-08 05:01:00* Test Item Value Reference Range Interpretation Comments Monocytes # (Auto) (test code = 742-7) 1.2 0.2-0.8 H [facility] HospitalEosinophils # (Auto)2018-12-08 05:01:00* Test Item Value Reference Range Interpretation Comments Eosinophils # (Auto) (test code = 711-2) 0.6 0.0-0.4 H [facility]Basophils # (Auto)2018-12-08 05:01:00* Test Item Value Reference Range Interpretation Comments Basophils # (Auto) (test code = 704-7) 0.0 0.0-0.1 [facility] HospitalAbsolute Immature Granulocyte (auto 2018-12-08 05:01:00* Test Item Value Reference Range Interpretation Comments Absolute Immature Granulocyte (auto (jojo t code = Absolute Immature Granulocyte (auto) 0.07 0-0.1 [facility] HospitalProthrombin Yulg7892-11-17 09:26:00* Test Item Value Reference Range Interpretation Comments Prothrombin Time (test code = 5902-2) 11.9 11.9-14.5 [facility] HospitalProthromb Time International Ratio 2018-12-07 09:26:00* Test Item Value Reference Range Interpretation Comments Prothromb Time International Ratio (test code = 6301-6) 0.83 Oral Anticoagulant Therapy INR Values:1. Low Intensity Therapy 1.5 - 2.02 . Moderate Intensity Therapy 2.0 - 3.03. High Intensity Therapy(1) 2.5 - 3. 54. High Intensity Therapy(2) 3.0 - 4.05. Panic Value INR > 5.0 [facility] HospitalActivated Partial Thromboplast Time 2018-12-07 09:26:00* Test Item Value Reference Range Interpretation Comments Activated Partial Thromboplast Time (test code = 10227-2) 26.4 23.8-35.5 [facility] HospitalProthrombin Zyui9079-55-16 09:26:00* Test Item Value Reference Range Interpretation Comments Prothrombin Time (test code = 5902-2) 11.9 11.9-14.5 [facility] HospitalProthromb Time International Ratio 2018-12-07 09:26:00* Test Item Value Reference Range Interpretation Comments Prothromb Time International Ratio (test code = 6301-6) 0.83 Oral Anticoagulant Therapy INR Values:1. Low Intensity Therapy 1.5 - 2.02 . Moderate Intensity Therapy 2.0 - 3.03. High Intensity Therapy(1) 2.5 - 3. 54. High Intensity Therapy(2) 3.0 - 4.05. Panic Value INR > 5.0 [facility] HospitalActivated Partial Thromboplast Time 2018-12-07 09:26:00* Test Item Value Reference Range Interpretation Comments Activated Partial Thromboplast Time (test code = 42715-3) 26.4 23.8-35.5 [facility] HospitalABDOMEN 2 [id number] 08:53:00 [place] [address] Patient Name: JILLIAN CARBALLO MR #: [id number] : 1935 Age/Sex: 83/M Req #: [id number] Adm Physician: CONI TOMPKINS MD Ordered by: BARBARA LUNA MD Report #: [id number] Location: [facility] Room/Bed: [place] [address] Procedure: 605-001 0 DX/ABDOMEN 2 VIEW Exam Date: 12/07/18 [...] WHARTON MD 6 Transcribed By: SONDRA on 12/07/18 0857 COPY TO: BARBARA LUNA MD Urine [id number] 00:25:00* Test Item Value Reference Range Interpretation Comments Urine WBC (test code = 5821-4) 6-10 0-5 H [facility] HospitalUrine [id number] 00:25:00* Test Item Value Reference Range Interpretation Comments Urine RBC (test code = 12034-6) 6-10 0-5 H [facility] HospitalUrine Mqgktfom5467-61-33 00:25:00* Test Item Value Reference Range Interpretation Comments Urine Bacteria (test code = 32485-1) MANY NONE H [facility] HospitalUrine Epithelial Lxwzu5404-14-07 00:25:00 * Test Item Value Reference Range Interpretation Comments Urine Epithelial Cells (test code = 33176-3) FEW NONE [facility] HospitalU[facility] Hyaline Hhygs0890-59-27 00:25:00* Test Item Value Reference Range Interpretation Comments Urine Hyaline Casts (test code = 68980-8) 2-5 0-1 H [facility] HospitalUrine Kyvkr4384-40-59 00:25:00* Test Item Value Reference Range Interpretation Comments Urine Mucus (test code = 8247-9) MANY RARE H [facility] HospitalUrine IUI3081-01-36 00:25:00* Test Item Value Reference Range Interpretation Comments Urine WBC (test code = 5821-4) 6-10 0-5 H [facility] HospitalUrine [id number] 00:25:00* Test Item Value Reference Range Interpretation Comments Urine RBC (test code = 57208-3) 6-10 0-5 H [facility] HospitalUrine Drlkjuam5651-96-44 00:25:00* Test Item Value Reference Range Interpretation Comments Urine Bacteria (test code = 14314-5) MANY NONE H [facility] HospitalUrine Epithelial Urotj6782-18-00 00:25:00 * Test Item Value Reference Range Interpretation Comments Urine Epithelial Cells (test code = 86852-1) FEW NONE [facility] HospitalU[facility] Hyaline Zxswy6236-79-55 00:25:00* Test Item Value Reference Range Interpretation Comments Urine Hyaline Casts (test code = 29790-2) 2-5 0-1 H [facility] HospitalUrine Zpjag4324-55-48 00:25:00* Test Item Value Reference Range Interpretation Comments Urine Mucus (test code = 8247-9) MANY RARE H [facility] HospitalCT ABDOMEN/PELVIS [id number] 00:24:00 [place] [address] Patient Name: JILLIAN CARBALLO MR #: [id number] : 1935 Age/Sex: 83/M Req #: [id number] Adm Physician: Ordered by: BARBARA LUNA MD Report #: [id number] Location: ER Room/Bed: Procedure: 1 CT/CT ABDOMEN/PELVIS WO Exam Date: 12/07/18 Exam T florence: 0005 REPORT STATUS: Signed EXAM: CT Abdomen and Pelvis WITHOUT contrast INDICATION: left flank pain [id number] Y COMPARISON: Abdominal x-ray dated 08/18/2018, c [...] COPY TO : BARBARA LUNA MD Urine Gbmtw6111-44-75 00:15:00* Test Item Value Reference Range Interpretation Comments Urine Color (test code = 5778-6) YELLOW YELLOW [facility] HospitalU[facility] Mwatous5827-01-10 00:15:00* Test Item Value Reference Range Interpretation Comments Urine Clarity (test code = 94809-6) CLEAR CLEAR [facility] HospitalU[facility] Specific Txxqpxv0651-55-18 00:15:00 * Test Item Value Reference Range Interpretation Comments Urine Specific [place] (test code = 5811-5) >=1.030 1.010-1.02 5 [facility] HospitalUrine [id number] 00:15:00* Test Item Value Reference Range Interpretation Comments Urine pH (test code = 43322-4) 5.5 5-7 [facility] Leukocyte Dmgjqgvo0966-89-83 00:15:00* Test Item Value Reference Range Interpretation Comments Urine Leukocyte Esterase (test code = 71872-8) NEGATIVE NEGATIV E [facility] HospitalU[facility] Ruoybwj3436-10-36 00:15:00* Test Item Value Reference Range Interpretation Comments Urine Nitrite (test code = 69272-1) NEGATIVE NEGATIVE [facility] Lcnxkav6217-35-29 00:15:00* Test Item Value Reference Range Interpretation Comments Urine Protein (test code = 89626-0) TRACE NEGATIVE H [facility] HospitalUrine Glucose (UA)2018-12-07 00:15:00* Test Item Value Reference Range Interpretation Comments Urine Glucose (UA) (test code = 73072-8) NEGATIVE NEGATIVE [facility] HospitalU[facility] Gkrolsx8601-60-74 00:15:00* Test Item Value Reference Range Interpretation Comments Urine Ketones (test code = 12298-4) TRACE NEGATIVE H [facility] Ostxwgofawwx0596-33-21 00:15:00* Test Item Value Reference Range Interpretation Comments Urine Urobilinogen (test code = 78752-5) 0.2 0.2-1 [facility] Awrlimsdt9394-36-27 00:15:00* Test Item Value Reference Range Interpretation Comments Urine Bilirubin (test code = 1977-8) NEGATIVE NEGATIVE [facility] Antwi7879-81-13 00:15:00* Test Item Value Reference Range Interpretation Comments Urine Blood (test code = 68128-2) NEGATIVE NEGATIVE [facility] Banrf1344-55-34 00:15:00* Test Item Value Reference Range Interpretation Comments Urine Color (test code = 5778-6) YELLOW YELLOW [facility] HospitalU[facility] Qnnalmf1689-93-22 00:15:00* Test Item Value Reference Range Interpretation Comments Urine Clarity (test code = 99416-6) CLEAR CLEAR [facility] HospitalU[facility] Specific Xqtpnug0417-80-35 00:15:00 * Test Item Value Reference Range Interpretation Comments Urine Specific [place] (test code = 5811-5) >=1.030 1.010-1.02 5 [facility] wP4317-87-98 00:15:00* Test Item Value Reference Range Interpretation Comments Urine pH (test code = 83258-9) 5.5 5-7 [facility] Leukocyte Rktypmiy7459-75-81 00:15:00* Test Item Value Reference Range Interpretation Comments Urine Leukocyte Esterase (test code = 25040-9) NEGATIVE NEGATIV E [facility] HospitalU[facility] Yxzuzhn0376-77-06 00:15:00* Test Item Value Reference Range Interpretation Comments Urine Nitrite (test code = 22894-0) NEGATIVE NEGATIVE [facility] Pptcxkg9003-26-78 00:15:00* Test Item Value Reference Range Interpretation Comments Urine Protein (test code = 26901-5) TRACE NEGATIVE H [facility] HospitalU[facility] Glucose (UA)2018-12-07 00:15:00* Test Item Value Reference Range Interpretation Comments Urine Glucose (UA) (test code = 12606-2) NEGATIVE NEGATIVE [facility] Foeusrf5751-64-87 00:15:00* Test Item Value Reference Range Interpretation Comments Urine Ketones (test code = 47644-1) TRACE NEGATIVE H [facility] HospitalU[facility] Xbqeidmparnz2584-47-63 00:15:00* Test Item Value Reference Range Interpretation Comments Urine Urobilinogen (test code = 71687-4) 0.2 0.2-1 [facility] Rlqlcnscw3669-46-14 00:15:00* Test Item Value Reference Range Interpretation Comments Urine Bilirubin (test code = 1977-8) NEGATIVE NEGATIVE [facility] Ovzuw4426-05-29 00:15:00* Test Item Value Reference Range Interpretation Comments Urine Blood (test code = 59903-3) NEGATIVE NEGATIVE [facility]AB[facility] (KUB)2018-08-18 11:32:00 [facility] [address] [place] [address] Patient Name: JILLIAN CARBALLO MR #: [id number] : 1935 Age/Sex: 83/M Req #: [id number] Adm Physician: Ordered by: HERMILO ALLEN MD Report #: [id number] Location: RAD Room/Bed: Procedure: [id number] DX/A BDOMEN-1VIEW (KUB) Exam Date: 08/18/18 Exam [...] ALLEN MD CT CHEST WO 2018-07-28 12:17:00 [place] [address] Patient Name: JILLIAN CARBALLO MR #: [id number] : 1935 Age/Sex: 83/M Req #: [id number] Adm Physician: Ordered by: KATIE KUHN MD Report #: [id number] Location: CT Room/Bed: Procedure: [id number] C T/CT CHEST WO Exam Date: 07/28/18 Exam Time: 1156 REPORT STATUS: Signed EXAM: CT Cristiane st WITHOUT contrast 07/28/2018 11:37 AM INDICATION: [id number] ABNORMAL CHEST XRAY COMPARISON: Chest radiograph [...] COPY TO: KATIE KUHN MD CHEST 2 IABRG2983-99-09 10:51:00 [place] [address] Patient Name: JILLIAN CARBALLO MR #: [id number] : 1935 Age/Sex: 83/M Req #: [id number] Adm Physician: Ordered by: KATIE KUHN MD Report #: [id number] Location: [facility] Room/Bed: Procedure: [id number] D X/CHEST 2 VIEWS Exam Date: 07/21/18 [...] TO: KATIE MUSA MD ABDOMEN-1VIEW (KUB)2018-05-18 10:53:00 [place] [address] Patient Name: JILLIAN CARBALLO MR #: [id number] : 1935 Age/Sex: 82/M Req #: [id number] Adm Physician: Ordered by: HERMILO ALLEN MD Report #: [id number] Location: [facility] Room/Bed: Procedure: [id number] DX/A BDOMEN-1VIEW (KUB) Exam Date: 05/18/18 Exam [...] HERMILO ALLEN MD ABDOMEN- 1VIEW (KUB)2018-02-20 21:03:00 [place] [address] Patient Name: JILLIAN CARBALLO MR #: [id number] : 1935 Age/Sex: 82/M Req #: [id number] Adm Physician: Ordered by: HERMILO ALLEN MD Report #: [id number] Location: [facility] Room/Bed: Procedure: [id number] DX/ABDOMEN-1VIEW (KUB) Exam D ate: 02/20/18 Exam Time: 1604 REPORT STATUS: Si gned PROCEDURE: X-RAY ABDOMEN - KUB COMPARISON: Patients Medical Ce TAMI hunter, ABDOMEN-1VIEW (KUB), 11/24/2017, 10:42. INDICATIONS: KIDNEY STONE [...] COPY TO: HERMILO ALLEN MD CT ABDOMEN/PELVIS [id number] 17:37:00 [place] [address] Patient Name: JILLIAN CARBALLO MR #: [id number] : 1935 Age/Sex: 82/M Req #: [id number] Adm Physician: Ordered by: KATIE KUHN MD Report #: [id number] Location: CT Room/Bed: Procedure: [id number] CT/CT ABDOMEN/PELVIS EPIFANIO Issa m Date: 12/28/17 Exam Time: 1651 REPORT STATUS: Signed PROCEDURE: CT ABDOMEN AND [...] Zac Shore M.D. on 12/28/2017 at 17:37 Tai vince approved by: Zac Shore M.D. on 12/28/2017 at 17:37 Dictated By: ZAC SHORE MD [id number] COPY TO: AVIS KUHN MD ABDOMEN-1VIEW (KUB) [place] [address] Patient Name: JILLIAN CARBALLO MR #: [id number] : 1935 Age/Sex: 82/M Req #: [id number] Adm Physician: Ordered by: HERMILO ALLEN MD Report #: [id number] Location: [facility] Room/Bed: Procedure: [id number] DX/ABDOMEN-1VIEW (KUB) Exam D ate: 11/24/17 Exam Time: 1042 REPORT STATUS: Si gned PROCEDURE: X-RAY ABDOMEN - KUB COMPARISON: Patients Medical Ce ntTAMI anderson, ABDOMEN-1VIEW (KUB), 08/19/2017, 9:39. INDICATIONS: RENAL ST [...] COPY TO: HERMILO ALLEN MD ABDOMEN-1VIEW (KUB) [place] [address] Patient Name: JILLIAN CARBALLO MR #: [id number] : 1935 Age/Sex: 82/M Req #: [id number] Adm Physician: Ordered by: HERMILO ALLEN MD Report #: [id number] Location: [facility] Room/Bed: Procedure: [id number] DX/ABDOMEN-1VIEW (KUB) Exam D ate: 08/19/17 Exam Time: 0930 REPORT STATUS: Si gned PROCEDURE: ABDOMEN-1VIEW (KUB) TECHNIQUE: Supine AP abdomen totali ng 2 radiographs INDICATION: Kidney stones COMPARISON: [facility], DX, ABDOMEN-1VIEW (KUB), 02/11/2017, 9:23. [facility], D X, ABDOMEN-1VIEW (KUB), 05/12/2017, 10:56. [...] COPY TO: HERMILO ALLEN MD ABDOMEN-1VIEW (KUB) [place] [address] Patient Name: JILLIAN CARBALLO MR #: [id number] : 1935 Age/Sex: 81/M Req #: [id number] Adm Physician: Ordered by: HERMILO ALLEN MD Report #: [id number] Location: [facility] Room/Bed: Procedure: [id number] DX/ABDOMEN-1VIEW (KUB) Exam D ate: 05/12/17 Exam Time: 1058 REPORT STATUS: Si gned PROCEDURE: X-RAY ABDOMEN - KUB COMPARISON: Abdomen x-ray ; CT abdomen/pelvis 09/18/16 INDICATIONS: HISTORY OF KIDNEY CALCULUS FINDINGS: BOWEL GAS PATTERN: Non-specific bowel gas pattern. No di lated bowel loops. Yvoc-yi-gbkpcyel amount of stool in the large bowel. [...]
--- NOTE | 2020-04-09 07:40 | NUR ---
PATIENT IN BED RESTING WITH EYES CLOSED, NO DISTRESS NOTED. PROVIDED WITH YELLOW SOCKS. BED IN LOWER POSITION, CALL LIGHT AT REACH.
[2020-04-09] MEDS ORDERED: ONDANSETRON HCL 4 MG ORAL DISINTEGRATING TAB PO PRN (08:30)
[2020-04-09] MEDS ORDERED: ONDANSETRON HCL INJ 2MG/ML 2ML 2 MG/ML VIAL IV PRN (08:30)
[2020-04-09 08:58] LABS: BASOPHILS % 0.1 % (0.0-1.0); HEMATOCRIT 43.2 % (38.2-49.6); HEMOGLOBIN 15.1 g/dL (14.0-18.0); LYMPHOCYTES % 13.5 % (18.0-39.1); MEAN CORPUSCULAR HEMOGLOBIN 32.8 pg (28-32); MEAN CORPUSCULAR VOLUME 93.7 fL (81-99); MONOCYTES # (AUTO) 0.2 (0.2-0.8); MONOCYTES % 2.6 % (4.4-11.3); NEUTROPHILS # (AUTO) 6.4 (2.1-6.9); NEUTROPHILS % 83.4 % (38.7-80.0); PLATELET COUNT 174 x10e3/uL (140-360); RED BLOOD COUNT 4.61 x10e6/uL (4.3-5.7); RED CELL DISTRIBUTION WIDTH 12.9 % (11.7-14.4)
[2020-04-09 09:23] LABS: ALBUMIN/GLOBULIN RATIO 1.2 (0.8-2.0); ANION GAP 14.1 mmol/L (8-16); CALCIUM 9.3 mg/dL (8.4-10.2); CREATININE, SERUM 1.3 mg/dL (0.72-1.25); POTASSIUM 4.1 mmol/L (3.5-5.1)
[2020-04-09 09:57] LABS: CREATINE KINASE 104 IU/L (30-200)
[2020-04-09] MEDS ORDERED: ENOXAPARIN SOD INJ 40 MG/0.4 ML SYR SC SCH (10:00)
[2020-04-09] MEDS ORDERED: DEXAMETHASONE 4 MG TAB PO SCH (10:00)
[2020-04-09] MEDS ORDERED: AZITHROMYCIN 250 MG TAB PO SCH (10:00)
[2020-04-09] MEDS: ASCORBIC ACID 500 MG TAB PO SCH ×2 (10:00→17:28)
[2020-04-09] MEDS ORDERED: SODIUM CHLORIDE 0.9% 250ML 250 ML ONE (10:08)
[2020-04-09] MEDS: OLMESARTAN 20 MG TAB PO SCH (10:30)
[2020-04-09] MEDS: LORATADINE 10 MG TAB PO SCH (10:30)
--- NOTE | 2020-04-09 10:53 | History and Physical ---
REASON FOR ADMISSION: Fever. COVID-19 infection. 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 At home, he had fever of 101.2. The patient did take some Tylenol, but then, again, he also developed recurrent fever. Therefore, he came to the hospital. Here in the emergency room, the patient had a fever of . The patient is admitted. COVID-19 test subsequently came back positive. It is a COVID-19 PCR test. The patient has no shortness of breath. He was placed on oxygen preemptively. The patient is otherwise stable. He is awake and alert. He is eating. The patient denies any cough. The patient does have some abnormal lung auscultation, but other than that, he is stable at this time. He did have a fever. He is on a close monitoring and placed on medication treatment. PAST MEDICAL HISTORY: Including kidney stone, hypertension, prostatectomy, abdominal hernia repair, right hemicolectomy, and dyslipidemia. PAST SURGICAL HISTORY: As above. SOCIAL HISTORY: The patient works at a golf course. He does go to religion on Tuesday routinely. There was no exposure per patient. He is not a smoker. He does not drink alcohol. ALLERGIES: NO KNOWN ALLERGIES. HOME MEDICATIONS: The patient is on atorvastatin, Zyrtec, montelukast, olmesartan, vitamin D, and Valium at night for sleep. PHYSICAL EXAMINATION: VITAL SIGNS: Temperature , blood pressure 138/58, pulse rate 67, respirations 20. GENERAL: The patient is not in acute distress. He is awake. HEENT: Normocephalic and atraumatic. Anicteric. NECK: Supple grossly. PULMONARY: Diminished breath sounds at bases with some minimal coarse. CARDIOVASCULAR: S1, S2. Regular rate and rhythm. ABDOMEN: Soft and unremarkable. EXTREMITIES: No cyanosis or edema. NEUROLOGIC: No gross focal deficit. LABORATORY DATA: WBC 7.9, hemoglobin 13.6, hematocrit 40.4, and platelets 144. Chemistry; sodium 140, potassium 4.4, chloride 105, bicarb 23, BUN 14 and creatinine 1.2, glucose is 127. Lactic acid is 1.1. BNP is 58. Liver enzyme is otherwise unremarkable. Chest x-ray otherwise unremarkable. It is a two-view x-ray. IMPRESSION: 1. High-grade fever. This is from COVID-19 infection. 2. COVID-19 infection positive, test from COVID-19 PCR. 3. Multiple chronic baseline problem. PLAN: COVID-19 treatment protocol. Infectious Disease and Pulmonology consultation. We will monitor the patient closely. Preemptively given the patient 2 L nasal cannula. Oral steroids. Lovenox. Antibiotics for possible prevention or treatment of early bacterial pneumonia. The patient does have some abnormal lung examination on auscultation, but his chest x-ray otherwise unremarkable. May need to have a CT of the chest, if the patient condition worsens. In the meantime, continue with supportive measures. MD LONNY Hernandez/MODL /[id number] cc: Hawa Frey MD
[2020-04-09] MEDS: CEFTRIAXONE SOD 1 GM/NS 50 ML 50 ML IV SCH (11:09)
--- NOTE | 2020-04-09 11:13 | NUR ---
MD IN TO SEE PATIENT, NEW ORDERS RECEIVED AND IMPLEMENTED.
--- NOTE | 2020-04-09 16:08 | NUR ---
MD IN TO SEE PATIENT, NEW ORDER RECEIVED.
[2020-04-09 16:38] LABS: CREATINE KINASE 115 IU/L (30-200)
[2020-04-09] MEDS: SODIUM CHLORIDE 0.9% 1000ML 1,000 ML IV SCH (16:54)
--- NOTE | 2020-04-09 16:54 | Consultation ---
DATE OF CONSULTATION: REASON FOR CONSULTATION: Fever and COVID-19 infection. HISTORY OF PRESENT ILLNESS: This is a very pleasant 84-year-old, who has history of kidney stone, hypertension, prostate hypertrophy, comes in with fever for 4 days. No shortness of breath. No cough. Just fever and not feeling well. Other than that all symptoms are within normal limit. The patient was admitted. His COVID-19 came back positive. PAST MEDICAL HISTORY: Kidney stone, hypertension, prostatectomy, abdominal hernia repair, right hemicolectomy, and hyperlipidemia. PAST SURGICAL HISTORY: As above. ALLERGIES: NKA. SOCIAL HISTORY: There is no smoking, drug abuse, or alcohol abuse. FAMILY HISTORY: Hypertension. HOME MEDICATIONS: He is on atorvastatin and Zyrtec. REVIEW OF SYSTEMS: At the present time, he is doing well. Beside the fever, he really denies any. HEENT: Negative. PULMONARY: Negative. CARDIAC: Negative. : Negative. SKIN: There is no rash. He is currently on Lovenox Rocephin, Claritin, and dexamethasone. PHYSICAL EXAMINATION: GENERAL: Currently alert and oriented. Does not seem to be in acute distress. VITAL SIGNS: Stable, currently afebrile. He did have 102.2 when he first came here. HEENT: He is not icteric. NECK: Supple. CHEST: Clear. HEART: S1 and S2. ABDOMEN: Soft. Bowel sounds present. EXTREMITIES: No edema. SKIN: No rash. LABORATORY DATA: His chest x-ray was negative. The patient, when I saw him, he was up and about in the room. His blood cultures are negative. His white count 7.97 and hemoglobin 13. Sodium 140, potassium 4.4, and creatinine 1.29. His COVID-19 was positive. IMPRESSION: 1. Fever on admission due to COVID-19. 2. Component of acute kidney injury with dehydration. 3. From Infectious Disease point of view, discontinue antibiotic. Keep on Rocephin. I will give him normal saline. We will follow. We are giving Ringer lactated at 75 mL an hour. Recheck CBC. Recheck chem panel. If he is stable and blood culture negative, could be discharged home with no antibiotic. MD BON Rivera/ASTON /[id number]
[2020-04-09] MEDS: CHOLECALCIFEROL 1,000 UNIT TAB PO SCH (17:28)
[2020-04-09] MEDS: ZINC SULFATE 220 MG CAP PO SCH (17:28)
[2020-04-09] MEDS: MONTELUKAST SODIUM 10 MG TAB PO SCH (20:09)
[2020-04-09] MEDS: DIAZEPAM 5 MG TAB PO SCH (20:09)
[2020-04-09] MEDS: ATORVASTATIN 20 MG TAB PO SCH (20:09)
--- NOTE | 2020-04-09 21:00 | NUR ---
Patient refused bed alarm. States he don't need it. Teaching regarding safety done. patient still refused.
[2020-04-10] MEDS: SODIUM CHLORIDE 0.9% 1000ML 1,000 ML IV SCH ×3 (04:09→21:30)
[2020-04-10 04:11] VITALS: BP 123/62
--- NOTE | 2020-04-10 04:44 | Consultation ---
DATE OF CONSULTATION: Pulmonary Consultation REASON FOR CONSULT: COVID-19 pneumonia. HISTORY OF PRESENT ILLNESS: Mr. Whittaker is an 84-year-old male who presented to the emergency room with fever. He reports that he did not have any shortness of breath. He reports that he has been running fever for 3 days. He works in a golf course. Initially it was 99, but the last night it went to 103, so his brought him to the hospital. The patient is denying any complaints of chest pain or shortness of breath. Chest x-ray is negative for any infiltrate. REVIEW OF SYSTEMS: GENERAL: Denies any fever. He was having fever and chills. HEAD: Denies any head trauma. ENT: Denies any earache. CVS: Denies any chest pain. The rest of the review of systems are negative except as in HPI. PAST MEDICAL HISTORY: History of kidney stone, hypertension, prostatectomy, abdominal hernia repair, and right hemicolectomy. PAST SURGICAL HISTORY: As above. FAMILY AND SOCIAL HISTORY: He works at a golf course. He does not drink. He is not a smoker. PHYSICAL EXAMINATION: VITAL SIGNS: Temperature 98.4, pulse of 62, blood pressure 104/76, respiratory rate of 18, and O2 saturation is 97% on 2 L. HEENT: Head is atraumatic normocephalic. NECK: Supple. CHEST: Clear to auscultation bilaterally. No wheezing. HEART: S1, S2 audible. ABDOMEN: Soft. EXTREMITIES: No pedal edema. NEUROLOGIC: Awake, alert. No focal neurologic deficit. LABORATORY DATA: Reviewed. Creatinine is 1.3. White count of 7000. Chest x-ray is not showing any infiltrates. ASSESSMENT/PLAN: Mr. Whittaker is an 84-year-old male with COVID-19 pneumonia admitted. The patient is currently mildly hypoxic on 2 L. Continue the patient on IV Rocephin, and add azithromycin. I will also see any. I will continue the patient on Rocephin per Dr. Teran' recommendation. The patient has received one dose of Decadron in the emergency room and Decadron was started here, which Decadron was discontinued. He is not Decadron. Thank you for this consult. MD GROVER Solomon/ASTON /[id number]
--- NOTE | 2020-04-10 07:20 | NUR ---
PATIENT IN BED RESTING WITH NO S/S OF DISTRESS. IV FLUID INFUSING ORDERED. BED IN LOWER POSITION, CALL LIGHT AT REACH.
[2020-04-10 07:30] VITALS: BP 118/55
[2020-04-10] MEDS: ASCORBIC ACID 500 MG TAB PO SCH ×2 (08:58→17:08)
[2020-04-10] MEDS: LORATADINE 10 MG TAB PO SCH (08:58)
[2020-04-10] MEDS: OLMESARTAN 20 MG TAB PO SCH ×2 (09:00→12:10)
[2020-04-10] MEDS: CEFTRIAXONE SOD 1 GM/NS 50 ML 50 ML IV SCH (09:47)
--- NOTE | 2020-04-10 11:07 | NUR ---
PATIENT SITTING UP IN BED TALKING ON THE PHONE, NO COMPLAIN VOICED. CALL LIGHT AT REACH.
[2020-04-10 11:30] VITALS: BP 132/71
--- NOTE | 2020-04-10 12:00 | Progress Note ---
DATE: SUBJECTIVE: The patient is breathing well. No distress. PHYSICAL EXAMINATION: VITAL SIGNS: Temperature 98.2, pulse of 55, and blood pressure 118/55. CHEST: Clear to auscultation bilaterally. No wheezing. NEUROLOGIC: Awake and alert. LABORATORY DATA: Reviewed. ASSESSMENT: COVID-19 pneumonia, chronic kidney disease. PLAN: The patient is stable. Wean oxygen as tolerated to keep the O2 saturation more than or equal to 92%. Antibiotics per ID recommendations. MD GROVER Solomon/MODMag[facility] /[id number]
--- NOTE | 2020-04-10 16:04 | NUR ---
O2 VIA N/C STOPPED. PATIENT O2 SAT CHECKED, 94-97% ON RA. WILL CLOSELY MONITOR.
[2020-04-10 16:30] VITALS: BP 155/78
[2020-04-10] MEDS: ZINC SULFATE 220 MG CAP PO SCH (17:08)
[2020-04-10] MEDS: CHOLECALCIFEROL 1,000 UNIT TAB PO SCH (17:08)
--- NOTE | 2020-04-10 19:40 | NUR ---
Patient visited in room during nursing rounds. Patient alert and oriented x3. Ambulatory in room prn. Pt denies any discomfort or pain. Pt breathing on room air. Pt on droplet isolation for COVID 19. Pt states he feels better and ready to go home. Call sarkar within reach.
[2020-04-10 20:00] VITALS: BP 124/72
--- NOTE | 2020-04-10 20:58 | Progress Note ---
DATE: SUBJECTIVE: Mr. Whittaker is doing well. There are no new complaints. There is no shortness of breath. REVIEW OF SYSTEMS: Otherwise unremarkable. PHYSICAL EXAMINATION: GENERAL: He is currently alert and oriented. VITAL SIGNS: Stable and afebrile. HEENT: He is not icteric. NECK: Supple. CHEST: Clear. HEART: S1 and S2. ABDOMEN: Soft. Bowel sounds present. EXTREMITIES: No edema. SKIN: No rash. ASSESSMENT AND PLAN: The patient remains on room air. From Infectious Disease point of view, the patient can be discharged home. No antibiotic. Supportive care discussed with the patient. He was infectious for 10 days. Thank you for asking me to see this patient. MD BON Rievra/ASTON /[id number]
[2020-04-10 21:00] VITALS: BP 124/72
[2020-04-10] MEDS: MONTELUKAST SODIUM 10 MG TAB PO SCH (21:30)
[2020-04-10] MEDS: ATORVASTATIN 20 MG TAB PO SCH (21:30)
[2020-04-10] MEDS: DIAZEPAM 5 MG TAB PO SCH (21:30)
[2020-04-11] VITALS: BP 119/71
[2020-04-11 04:00] VITALS: BP 140/71
[2020-04-11 05:04] LABS: BASOPHILS % 0.1 % (0.0-1.0); EOSINOPHILS # (AUTO) 0.1 (0.0-0.4); EOSINOPHILS % 1.6 % (0.0-6.0); HEMOGLOBIN 13.2 g/dL (14.0-18.0); LYMPHOCYTES # (AUTO) 1.8 (1.0-3.2); LYMPHOCYTES % 25.6 % (18.0-39.1); MEAN CORPUSCULAR HEMOGLOBIN 29.7 pg (28-32); MEAN CORPUSCULAR HGB CONC 32.2 g/dL (31-35); MEAN CORPUSCULAR VOLUME 92.1 fL (81-99); MONOCYTES # (AUTO) 0.7 (0.2-0.8); MONOCYTES % 9.7 % (4.4-11.3); NEUTROPHILS # (AUTO) 4.3 (2.1-6.9); NEUTROPHILS % 62.9 % (38.7-80.0); PLATELET COUNT 147 x10e3/uL (140-360); RED BLOOD COUNT 4.45 x10e6/uL (4.3-5.7); RED CELL DISTRIBUTION WIDTH 12.3 % (11.7-14.4)
[2020-04-11 05:28] LABS: ANION GAP 12.9 mmol/L (8-16); BLOOD UREA NITROGEN 17 mg/dL (7-26); BUN/CREATININE RATIO 16 (6-25); CALCIUM 8.7 mg/dL (8.4-10.2); CARBON DIOXIDE 28 mmol/L (22-29); CHLORIDE 107 mmol/L (98-107); CREATININE, SERUM 1.09 mg/dL (0.72-1.25); EST GLOMERULAR FILTRATION RATE > 60 ML/MIN (60-); GLUCOSE 91 mg/dL (74-118); POTASSIUM 4.9 mmol/L (3.5-5.1); SODIUM 143 mmol/L (136-145)
--- NOTE | 2020-04-11 07:29 | NUR ---
PATIENT IN BED RESTING WITH NO S/S OF DISTRESS. REQUESTED AND RECEIVED A CUP OF COFFEE. BED IN LOWER POSITION, CALL LIGHT AT REACH.
[2020-04-11 07:35] VITALS: BP 136/72
[2020-04-11 08:27] VITALS: BP 136/72
[2020-04-11] MEDS: LORATADINE 10 MG TAB PO SCH (09:34)
[2020-04-11] MEDS: CEFTRIAXONE SOD 1 GM/NS 50 ML 50 ML IV SCH (09:34)
[2020-04-11] MEDS: ASCORBIC ACID 500 MG TAB PO SCH (09:34)
[2020-04-11] MEDS: OLMESARTAN 20 MG TAB PO SCH (09:34)
--- NOTE | 2020-04-11 09:50 | Discharge Summary ---
PRIMARY CARE PHYSICIAN: Dr. Hawa Frey. CONSULTANTS: 1. Dr. Sean Medrano. 2. Dr. Fernando Sanchez. FINAL DIAGNOSIS: 1. Coronavirus disease-19 infection. 2. Slightly hypoxia, resolved. SUMMARY: An 84 years male, came in with a COVID-19 infection. The patient has some upper respiratory symptoms. He did have some fever 102.1. The patient's fever has resolved for the past two days. He is comfortable. He is stable. He did receive IV antibiotic, Rocephin, and azithromycin. The patient is stable. Now, he did not require oxygen. His saturation on room air 96%. The patient will go home today. He will continue with his home medication. He will take ascorbic acid 500 mg daily, zinc sulfate 220 mg daily both for 30 days. Doxycycline monohydrate 100 mg twice a day for 7 days for prophylactic in case that he will develop pneumonia. Ecotrin 81 mg daily for 30 days. The patient is stable, discharged home. Follow up with his family physician, Dr. Hawa Frey within 2-3 weeks. The patient lives with his spouse. I recommended follow CBC protocol. The patient and spouse should wear mask when possible. They can be 6 feet apart. The risks since the spouse lives with the patient higher and even when the patient did receive fever he did expose to spouse and his spouse's test negative. I would continue to recommend medication to prevent spouse from getting infected. The patient is otherwise stable, asymptomatic, and he will go home today. MD LONNY Hernandez/ASTON /[id number]
--- NOTE | 2020-04-11 10:20 | NUR ---
HOME O2 EVAL DONE. PATIENT SAT AT 93-94% WITH AMBULATION. DOES NOT QUALIFY FOR O2. OUT OF BED TO CHAIR. CALL LIGHT AT REACH.
[2020-04-11] MEDS ORDERED: ASCORBIC ACID500 MG PO (10:49)
[2020-04-11] MEDS ORDERED: ZINC SULFATE220 MG PO (10:49)
[2020-04-11] MEDS ORDERED: ECOTRIN81 MG PO (10:50)
--- NOTE | 2020-04-11 11:25 | NUR ---
Home O2 eval was completed. Pt sat 93-94% on exertion on RA. Does not qualify for oxygen. IMM letter discussed with pt. He verbalized understanding. Copy to pt. Signed copy in chart.
--- NOTE | 2020-04-11 11:30 | NUR ---
PATIENT DISCHARGED HOME. DISCHARGE INSTRUCTIONS, PRESCRIPTIONS, AND FOLLOW UP GIVEN TO PATIENT, HE VERBALIZED UNDERSTANDING. IV TO LEFT AC REMOVED WITH TIP INTACT. ALL PERSONAL ITEMS TAKEN WITH PATIENT. LEFT UNIT PER WHEEL CHAIR TO FRONT LOBBY IN STABLE CONDITION.
== END 2020-04-11 11:25 | disposition home or self-care (01) | DRG 177 ==
LOC: ER 21:19 → ERHOLD 04-09 01:01 → MED/SURG3 04-09 01:22 → OBSVTOIN 04-09 08:26
PROVIDERS: ADMIT Internal Medicine; ATTEND Internal Medicine
DX: U07.1 COVID-19 (principal); J12.89 Other viral pneumonia; N17.9 Acute kidney failure, unspecified; E78.5 Hyperlipidemia, unspecified; E86.0 Dehydration; R09.02 Hypoxemia; I12.9 Hypertensive chronic kidney disease with stage 1 through stage 4 chronic kidney disease, or unspecified chronic kidney disease; N18.9 Chronic kidney disease, unspecified; Z85.46 Personal history of malignant neoplasm of prostate; Z90.49 Acquired absence of other specified parts of digestive tract; Z82.49 Family history of ischemic heart disease and other diseases of the circulatory system; Z87.442 Personal history of urinary calculi
CPT/HCPCS: 36415; 71045; 80048; 80053; 82550; 82553; 83605; 83880; 84484; 85025; 87040; 99284; J0456; J0696; J1100; J1650; J2543; J7030; J7050

== ENCOUNTER → 2020-06-05 | Outpatient (CLI) | payer MEDICARE, OTHER ==
[~2020-06-05] MED LIST changes: +ASCORBIC ACID500 MG PO; +BENICAR20 MG PO; +DIAZEPAM5 MG PO; +ECOTRIN81 MG PO; +ZINC SULFATE220 MG PO; +vitamin d PO
--- NOTE | 2020-06-05 11:29 | Diagnostic Imaging Report ---
Abdomen, 1 view. History: Renal calculus. Findings: Air is scattered throughout nondilated small and large bowel. A 4 mm calcific density is projected over the lower pole of the left kidney. Multiple surgical clips are present within the pelvis bilaterally. The osseous structures are intact. IMPRESSION: Non-specific bowel gas pattern. Possible small left renal calculus. Signed by: Jermain Lopez on 06/05/2020 11:26 AM
== END ==
LOC: RAD 09:24
PROVIDERS: ATTEND Urology
DX: N20.0 Calculus of kidney (principal)
CPT/HCPCS: 74018

== ENCOUNTER → 2021-08-27 | Day surgery (SDC) | payer MEDICARE, OTHER ==
[2021-08-24 15:47] LABS: BASOPHILS % 0.3 % (0.0-1.0); EOSINOPHILS # (AUTO) 0.2 (0.0-0.4); EOSINOPHILS % 2.6 % (0.0-6.0); HEMATOCRIT 44.8 % (38.2-49.6); HEMOGLOBIN 14.7 g/dL (14.0-18.0); LYMPHOCYTES # (AUTO) 2.2 (1.0-3.2); LYMPHOCYTES % 24.3 % (18.0-39.1); MEAN CORPUSCULAR HEMOGLOBIN 29.1 pg (28-32); MEAN CORPUSCULAR HGB CONC 32.8 g/dL (31-35); MEAN CORPUSCULAR VOLUME 88.7 fL (81-99); MONOCYTES # (AUTO) 0.7 (0.2-0.8); MONOCYTES % 7.9 % (4.4-11.3); NEUTROPHILS # (AUTO) 5.7 (2.1-6.9); NEUTROPHILS % 64.6 % (38.7-80.0); PLATELET COUNT 203 x10e3/uL (140-360); RED BLOOD COUNT 5.05 x10e6/uL (4.3-5.7); RED CELL DISTRIBUTION WIDTH 12.6 % (11.7-14.4)
[~2021-08-27] MED LIST changes: +LIDOCAINE HCL 2% LOCAL INJ 5 ML SDV VIAL INJ ONE; +PROPOFOL IV EMULSION 10 MG/ML 20 ML VIAL ONE
[2021-08-27 08:05] VITALS: BP 115/61
== END | disposition home or self-care (01) ==
LOC: OR 05:35
PROVIDERS: ATTEND Internal Medicine Gastroenterology
DX: Z09 Encounter for follow-up examination after completed treatment for conditions other than malignant neoplasm (principal); D12.8 Benign neoplasm of rectum; Z98.0 Intestinal bypass and anastomosis status; K57.30 Diverticulosis of large intestine without perforation or abscess without bleeding; K64.8 Other hemorrhoids; K44.9 Diaphragmatic hernia without obstruction or gangrene; I10 Essential (primary) hypertension; E78.5 Hyperlipidemia, unspecified; J45.909 Unspecified asthma, uncomplicated; Z01.812 Encounter for preprocedural laboratory examination; Z20.822 Contact with and (suspected) exposure to COVID-19; Z79.82 Long term (current) use of aspirin; Z79.899 Other long term (current) drug therapy; Z80.0 Family history of malignant neoplasm of digestive organs
CPT/HCPCS: 36415; 45385; 85025; 93005; J2001; J2704; U0002; 45378